=== PATIENT | male | born 1990 | race Hispanic/Latino ===

== ENCOUNTER 2017-07-07 10:13 | Emergency (ER) | payer SELFPAY ==
[2017-07-07] MEDS ORDERED: IBUPROFEN 400 MG TAB ONE (11:52)
--- NOTE | 2017-07-07 12:27 | RAD REPORT ---
EXAM DESCRIPTION: VAS - Extremity Venous Uni Ltd - 07/07/2017 12:07 pm CLINICAL HISTORY: Leg swelling and edema. COMPARISON: None. FINDINGS: Left lower extremity venous system was interrogated with Doppler technique. Normal flow, c ompressibility and augmentation was noted. There is no DVT present. IMPRESSION: No evidence of left lower extremity deep venous thrombosis.
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
--- NOTE | 2017-07-07 12:49 | RAD REPORT ---
EXAM DESCRIPTION: RAD - Tib Fib Left - 07/07/2017 12:36 pm CLINICAL HISTORY: Pain, swelling. COMPARISON: 04/13/2016 FINDINGS: Intramedullary collette is seen within the tibia. No evidence of hardware loosening or infectio n. Bony remodeling about midtibia shaft fracture is noted. Mild remodeling is also seen mid fibula. M etallic foreign bodies are seen throughout the superficial tissues of the leg.
== END 2017-07-07 13:12 | disposition home or self-care (01) ==
LOC: ER 10:13
DX: M79.662 Pain in left lower leg (principal)
CPT/HCPCS: 93971; 99283

== ENCOUNTER 2017-12-18 22:44 | Emergency (ER) | payer OTHER, SELFPAY ==
--- OUTSIDE RECORDS SUMMARY | 2017-12-18 22:46 | XMS REPORT | Summary of Care ---
:[address] [facility] Address [address] [place] [id number] Encounter HQ Encntr_alias(FIN) [id number] Date(s): 04/13/16 - 04/17/16 [facility] [address] [place] [address] Professional Services provided by [facility] [place] [address]- Discharge Disposition: Home or Self Care Attending Physician: Waqas Abdi MD Admitting Physician: Toby Helms MD Vital Signs Most recent to oldest 1 2 3 [Reference Range]: Height 167.64 cm 167.64 cm (04/14/16 1:11 AM) (04/13/16 8:58 PM) Temperature Oral [96.4-99.1 98.7 DegF 99.3 DegF 98.4 DegF DegF] (04/17/16 12:59 PM) *HI* (04/17/16 3:21 AM) (04/17/16 9:03 AM) Blood Pressure [90-140/60-90 122/74 mmHg 112/69 mmHg 118/74 mmHg mmHg] (04/17/16 12:59 PM) (04/17/16 9:03 AM) (04/17/16 3:21 AM) Respiratory Rate [14-20 BRMIN] 18 BRMIN 18 BRMIN 18 BRMIN (04/17/16 12:59 PM) (04/17/16 9:03 AM) (04/17/16 3:21 AM) Peripheral Pulse Rate [60-100 93 bpm 74 bpm 73 bpm bpm] (04/17/16 12:59 PM) (04/17/16 9:03 AM) (04/17/16 3:21 AM) Weight 63.636 kg (04/13/16 8:58 PM) Body Mass Index 22.64 m2 (04/13/16 8:58 PM) Problem List No data available for this section Allergies, Adverse Reactions, Alerts Substance Reaction Severity Status NKDA Active Medications acetaminophen 1,000 mg, 2 tab, Route: PO, Drug form: TAB, Q6H, Dosing Weight 63.636, kg, Priority: NOW, Start date: 04/13/16 23:04:00 POSITION CLASSIFICATION MANAGER, Duration: 30 day, Stop date: 05/13/16 18:00:00 CDT Notes: Max acetaminophen 4000 mg/day (4 gm/day). (Same as: Tylenol Extra Strength) Start Date: 04/13/16 Stop Date: 04/17/16 Status: DiscontinuedAncef 2 gm, 100 mL, Route: IVPB, Drug form: INJ, ABXQ8H, Dosing Weight 63.636, kg, Start date: 04/14/16 11:00:00 POSITION CLASSIFICATION MANAGER, Stop date: 04/16/16 3:00:00 POSITION CLASSIFICATION MANAGER Notes: Same as: Ancef Start Date: 04/14/16 Stop Date: 04/14/16 Status: DiscontinuedANES flumazenil 0.2 mg, 2 mL, Route: IVP, Drug form: INJ, PRN, Dosing Weight 63.636, kg, PRN Benzodiazepine Reversal, Initial dose, Start date: 04/14/16 16:39:00 POSITION CLASSIFICATION MANAGER, Duration: 1 day, Stop date: 04/15/16 16:38:00 POSITION CLASSIFICATION MANAGER Notes: (Same as: Romazicon) Start Date: 04/14/16 Stop Date: 04/14/16 Status: DiscontinuedANES HYDROmorphone 0.5 mg, 0.25 mL, Route: IVP, Drug form: INJ, Q5Min, Dosing Weight 63.636, kg, PRN Pain Score 7-10, Start date: 04/14/16 16:39:00 POSITION CLASSIFICATION MANAGER, Duration: 4 doses or times, Stop date: Limited # of times Notes: Same as: Dilaudid Start Date: 04/14/16 Stop Date: 04/14/16 Status: DiscontinuedANES naloxone 0.4 mg, 1 mL, Route: IVP, Drug form: INJ, Q2MIN, Dosing Weight 63.636, kg, PRN Narcotic Reversal, Start date: 04/14/16 16:39:00 POSITION CLASSIFICATION MANAGER, Duration: 8 doses or times , Stop date: Limited # of times Notes: Same as Narcan Start Date: 04/14/16 Stop Date: 04/14/16 Status: DiscontinuedANES ondansetron 4 mg, 2 mL, Route: IVP, Drug form: INJ, ONCE, Dosing Weight 63.636, kg, PRN Nausea & Vomiting, Start date: 04/14/16 16:39:00 POSITION CLASSIFICATION MANAGER Notes: (Same as: Zofran) MEDICATION WASTE Product Size: 4 mgProduct Wasted: ___ mg Start Date: 04/14/16 Stop Date: 04/14/16 Status: DiscontinuedANES oxyCODONE 5 mg, 1 tab, Route: PO, Drug form: TAB, Q4H, Dosing Weight 63.636, kg, PRN Pain Score 4-6, Start date: 04/14/16 16:39:00 POSITION CLASSIFICATION MANAGER, Duration: 1 day, Stop date: 16:38:00 POSITION CLASSIFICATION MANAGER Notes: (Same as: Roxicodone) Start Date: 04/14/16 Stop Date: 04/14/16 Status: Discontinuedaspirin 325 mg tablet, enteric coated 325 mg=1 tab, PO, BID, # 42 tab, 0 Refill(s) Start Date: 04/17/16 Stop Date: 05/08/16 Status: OrderedceFAZolin (SCIP) 1 gm, Route: IVPB, Drug form: PDR/INJ, Q8H, Dosing Weight 63.636, kg, Start date : 04/14/16 20:00:00 POSITION CLASSIFICATION MANAGER, Stop date: 04/15/16 17:00:00 POSITION CLASSIFICATION MANAGER Notes: (Same As: Raad Verdin) MEDICATION WASTE Product Size: 1000 mgProduct Wasted: ___ mg Start Date: 04/14/16 Stop Date: 04/15/16 Status: Completedcelecoxib 200 mg, 1 cap, Route: PO, Drug form: CAP, Q12H, Dosing Weight 63.636, kg, Priority: Routine, Start date: 04/14/16 9:00:00 POSITION CLASSIFICATION MANAGER, Duration: 48 hr, Stop date : 04/15/16 21:00:00 POSITION CLASSIFICATION MANAGER Notes: NSAID. Please check indication. Not for seizure. (Same As: CeleBREX) Start Date: 04/14/16 Stop Date: 04/15/16 Status: CompletedDilaudid 1 mg, 0.5 mL, Route: IVP, Drug form: INJ, ONCE, Dosing Weight 63.636, kg, Priority: STAT, Start date: 04/13/16 22:46:00 POSITION CLASSIFICATION MANAGER, Stop date: 04/13/16 22:46:00 POSITION CLASSIFICATION MANAGER Notes: Same as Dilaudid Start Date: 04/13/16 Stop Date: 04/13/16 Status: Completeddocusate 100 mg, 1 cap, Route: PO, Drug form: CAP, Q12H, Dosing Weight 63.636, kg, Start date: 04/14/16 9:00:00 POSITION CLASSIFICATION MANAGER, Duration: 30 day, Stop date: 05/13/16 21:00:00 CDT Notes: (Same as: Colace) (Do Not Crush) Start Date: 04/14/16 Stop Date: 04/17/16 Status: Discontinueddocusate sodium 100 mg oral capsule 100 mg=1 cap, PO, Q12H, PRN as needed for constipation, # 20 cap, 0 Refill(s) Start Date: 04/17/16 Stop Date: 04/27/16 Status: Orderedenoxaparin 30 mg, 0.3 mL, Route: SUB-Q, Drug form: INJ, [id number], Dosing Weight 63.636, kg , Start date: 04/14/16 0:00:00 POSITION CLASSIFICATION MANAGER, Duration: 30 day, Stop date: 05/13/16 12:00: 00 CDT Notes: (Same as: Lovenox) Start Date: 04/14/16 Stop Date: 04/14/16 Status: DiscontinuedFlomax 0.4 mg, 1 cap, Route: PO, Drug form: CAP, After Breakfast, Dosing Weight 63.636 , kg, Priority: NOW, Start date: 04/15/16 9:39:00 POSITION CLASSIFICATION MANAGER, Duration: 7 day, Stop date: 04/22/16 8:30:00 POSITION CLASSIFICATION MANAGER Notes: (Same As: Flomax) "Do Not Crush" Start Date: 04/15/16 Stop Date: 04/17/16 Status: Discontinuedinfluenza virus vaccine, inactivated 0.5 mL, Route: IM, Drug Form: SUSP, Daily, Start date: 04/15/16 12:30:00 POSITION CLASSIFICATION MANAGER, Duration: 1 doses or times, Stop date: 04/15/16 12:30:00 POSITION CLASSIFICATION MANAGER Notes: (Same as: Fluzone Quadrivalent, Fluarix Quadrivalent)For 3 years of age and older (0.5 mL IM)Shake well before use Start Date: 04/15/16 Stop Date: 04/15/16 Status: Completedinfluenza virus vaccine, inactivated 0.5 mL, Route: IM, Drug Form: SUSP, Daily, Start date: 04/14/16 9:00:00 POSITION CLASSIFICATION MANAGER, Duration: 1 doses or times, Stop date: 04/14/16 9:00:00 POSITION CLASSIFICATION MANAGER Notes: (Same as: Fluzone Quadrivalent, Fluarix Quadrivalent)For 3 years of age and older (0.5 mL IM)Shake well before use Start Date: 04/14/16 Stop Date: 04/15/16 Status: DeletedIsolyte S PH-7.4 (Bolus) IV 1,000 mL, 1000 ml/hr, Route: IV, Drug Form: SOLN, Dosing Weight 63.636, kg, ONCE , Start date: 04/13/16 21:13:00 POSITION CLASSIFICATION MANAGER, Stop date: 04/13/16 21:13:00 POSITION CLASSIFICATION MANAGER Notes: (Same as: Isolyte S PH 7.4) Start Date: 04/13/16 Stop Date: 04/13/16 Status: CompletedketOROLAC 30 mg, Route: IVP, ONCE, Dosing Weight 63.636, kg, Priority: NOW, Start date: 23:04:00 POSITION CLASSIFICATION MANAGER,Duration: 1 doses or times, Stop date: 04/13/16 23:04:00 POSITION CLASSIFICATION MANAGER Start Date: 04/13/16 Stop Date: 04/13/16 Status: CompletedLovenox 30 mg, 0.3 mL, Route: SUB-Q, Drug form: INJ, Q12H, Dosing Weight 63.636, kg, Start date: 04/14/16 18:30:00 POSITION CLASSIFICATION MANAGER, Duration: 30 day, Stop date: 05/14/16 16:00: 00 CDT Notes: (Same as: Lovenox) Start Date: 04/14/16 Stop Date: 04/17/16 Status: Discontinuedmagnesium citrate 1.745 g/30 mL oral liquid 150 ml, Route: PO, Drug Form: LIQ, Dosing Weight 63.636, kg, ONCE, Start date: 04/16/16 10:16:00 POSITION CLASSIFICATION MANAGER, Stop date: 04/16/16 10:16:00 POSITION CLASSIFICATION MANAGER Notes: (Same as: Citrate of Magnesia)Concentration: 1.745 gm / 30 mL Start Date: 04/16/16 Stop Date: 04/16/16 Status: CompletedNorco 5/325 oral tablet 1 tab, PO, Q4H, PRN for pain, X 7 day, # 40 tab, 0 Refill(s) Start Date: 04/17/16 Stop Date: 04/24/16 Status: OrderedNS (Bolus) IV 1,000 mL, 1,000 ml/hr, Infuse Over: 1 hr, Route: IV, ONCE, Priority: STAT, Dosing Weight 63.636 kg, Start date: 04/13/16 21:41:00 POSITION CLASSIFICATION MANAGER, Duration: 1 doses or times, Stop date: 04/13/16 21:41:00 POSITION CLASSIFICATION MANAGER Start Date: 04/13/16 Stop Date: 04/13/16 Status: DiscontinuedoxyCODONE 5 mg immediate release 10 mg, 2 tab, Route: PO, Drug form: TAB, Q4H, Dosing Weight 63.636, kg, PRN Pain Score 7-10, Start date: 04/13/16 23:04:00 POSITION CLASSIFICATION MANAGER, Duration: 30 day, Stop date : 05/13/16 23:03:00 CDT Notes: (Same as: Roxicodone) Start Date: 04/13/16 Stop Date: 04/17/16 Status: Discontinuedpolyethylene glycol 3350 17 gm, 1 pkt, Route: PO, Drug form: PWDR, BID, Dosing Weight 63.636, kg, Start date: 04/16/16 17:00:00 POSITION CLASSIFICATION MANAGER, Duration: 30 day, Stop date: 05/16/16 9:00:00 CDT Notes: Dissolve in 8 oz of water or juice.(Same as: Miralax) Start Date: 04/16/16 Stop Date: 04/17/16 Status: Discontinuedpolyethylene glycol 3350 17 gm, 1 pkt, Route: PO, Drug form: PWDR, Daily, Dosing Weight 63.636, kg, Start date: 04/14/16 9:00:00 POSITION CLASSIFICATION MANAGER, Duration: 30 day, Stop date: 05/13/16 9:00:00 CDT Notes: Dissolve in 8 oz of water or juice.(Same as: Miralax) Start Date: 04/14/16 Stop Date: 04/16/16 Status: Discontinuedpregabalin 100 mg, 1 cap, Route: PO, Drug form: CAP, Q8H, Dosing Weight 63.636, kg, Priority: NOW, Start date: 04/13/16 23:04:00 POSITION CLASSIFICATION MANAGER, Duration: 48 hr, Stop date: 16:00:00 POSITION CLASSIFICATION MANAGER Notes: (Same as: Lyrica) Start Date: 04/13/16 Stop Date: 04/15/16 Status: Completedsenna 17.2 mg, 2 tab, Route: PO, Drug Form: TAB, Dosing Weight 63.636, kg, Bedtime, Start date: 04/14/16 21:00:00 POSITION CLASSIFICATION MANAGER, Duration: 30 day, Stop date: 05/13/16 21:00: 00 CDT Notes: (Same as: Senokot) Start Date: 04/14/16 Stop Date: 04/17/16 Status: Discontinuedsenna 8.6 mg oral tablet 17.2 mg=2 tab, PO, Bedtime, PRN as needed for constipation, X 10 day, # 20 tab, 0 Refill(s) Start Date: 04/17/16 Stop Date: 04/27/16 Status: Orderedsodium chloride 0.9% 1000 ml INJ 1,000 mL 1,000 mL, Rate: 125 ml/hr, Infuse over: 8 hr, Route: IV, Dosing Weight 63.636 kg , Total Volume: 1,000, Start date: 04/15/16 16:14:00 POSITION CLASSIFICATION MANAGER, Duration: 30 day, Stop date: 05/15/16 16:13:00 CDT Start Date: 04/15/16 Stop Date: 04/16/16 Status: Discontinuedtramadol 100 mg, 2 tab, Route: PO, Drug form: TAB, Q6H, Dosing Weight 63.636, kg, Priority: NOW, Start date: 04/13/16 23:04:00 POSITION CLASSIFICATION MANAGER, Duration: 30 day, Stop date: 05/13/16 18:00:00 CDT Notes: Not to exceed 400mg/day. (Same As: Ultram) Start Date: 04/13/16 Stop Date: 04/17/16 Status: DiscontinuedVisipaque 320mg/ml 149 mL, Route: IVP, Drug Form: SOLN, Dosing Weight 63.636, kg, ONCALL, STAT, Start date: 04/13/16 22:07:00 POSITION CLASSIFICATION MANAGER, Duration: 1 doses or times, Dose=2.2ml/kg, Max gqad=182fm -- "To be infused by RadiologyStaff ONLY" Start Date: 04/13/16 Stop Date: 04/13/16 Status: CompletedZofran 4 mg, 2 mL, Route: IVP, Drug form: INJ, Q8H, Dosing Weight 63.636, kg, PRN Nausea, Start date: 04/16/16 7:29:00 POSITION CLASSIFICATION MANAGER, Duration: 30 day, Stop date: 05/16/16 7:28:00 CDT Notes: (Same as: Zofran) MEDICATION WASTE Product Size: 4 mgProduct Wasted: ___ mg Start Date: 04/16/16 Stop Date: 04/17/16 Status: DiscontinuedZofran 4 mg oral tablet 4 mg=1 tab, PO, Q8H, PRN Nausea/vomiting, X 7 day, # 20 tab, 0 Refill(s) Start Date: 04/17/16 Stop Date: 04/24/16 Status: Ordered Results BLOOD BANK RESULTS Most recent to oldest [Reference Range]: 1 2 3 ABO/Rh O POS *Unknown* (04/13/16 9:41 PM) Antibody Scrn Negative (04/13/16 9:41 PM) ELECTROLYTES Most recent to oldest 1 2 3 [Reference Range]: Sodium Lvl [135-145 mEq/L] 139 mEq/L 136 mEq/L 137 mEq/L (04/15/16 12:25 AM) (04/14/16 12:49 AM) (04/13/16 9:40 PM) Potassium Lvl [3.5-5.1 3.7 mEq/L 3.9 mEq/L 3.4 mEq/L mEq/L] (04/15/16 12:25 AM) (04/14/16 12:49 AM) *LOW* (04/13/16 9:40 PM) Chloride Lvl [95-109 mEq/L] 100 mEq/L 99 mEq/L 101 mEq/L (04/15/16 12:25 AM) (04/14/16 12:49 AM) (04/13/16 9:40 PM) CO2 [24-32 mEq/L] 30 mEq/L 24 mEq/L 24 mEq/L (04/15/16 12:25 AM) (04/14/16 12:49 AM) (04/13/16 9:40 PM) AGAP [10.0-20.0 mEq/L] 12.7 mEq/L 16.9 mEq/L 15.4 mEq/L (04/15/16 12:25 AM) (04/14/16 12:49 AM) (04/13/16 9:40 PM) CHEM PANEL Most recent to oldest 1 2 3 [Reference Range]: Creatinine Lvl [0.50-1.40 0.88 mg/dL 1.05 mg/dL 0.96 mg/dL mg/dL] (04/15/16 12:25 AM) (04/14/16 12:49 AM) (04/13/16 9:40 PM) eGFR 118 mL/min/1.73m2 1 97 mL/min/1.73m2 2 108 mL/min/1.73m2 3 *NA* *NA* *NA* (04/15/16 12:25 AM) (04/14/16 12:49 AM) (04/13/16 9:40 PM) BUN [7-22 mg/dL] 8 mg/dL 9 mg/dL 7 mg/dL (04/15/16 12:25 AM) (04/14/16 12:49 AM) (04/13/16 9:40 PM) Glucose Lvl [70-99 mg/dL] 106 mg/dL 85 mg/dL 105 mg/dL *HI* (04/14/16 12:49 AM) *HI* (04/15/16 12:25 AM) (04/13/16 9:40 PM) Calcium Lvl [8.5-10.5 8.3 mg/dL 9.1 mg/dL 9.1 mg/dL mg/dL] *LOW* (04/14/16 12:49 AM) (04/13/16 9:40 PM) (04/15/16 12:25 AM) Phosphorus [2.5-4.5 mg/dL] 2.7 mg/dL (04/15/16 12:25 AM) Magnesium Lvl [1.8-2.4 2.3 mg/dL mg/dL] (04/15/16 12:25 AM) Lactic Acid Lvl [0.5-2.2 1.7 mMol/L mMol/L] (04/13/16 9:40 PM) 1Result Comment: The eGFR is calculated using the CKD-EPI formula. In most young , healthy individualsthe eGFR will be >90 mL/min/1.73m2. The eGFR declines with age. An eGFR of 60-89 may be normal in some populations, particularly the elderly, for whom the CKD-EPI formula has not been extensively validated. Use of the eGFR is not recommended in the following populations: Individuals with unstable creatinine concentrations, including patients and those with serious co-morbid conditions. Patients with extremes in muscle mass or diet. The data above are obtained from the National Kidney Disease Education Program ( NKDEP) which additionally recommends that when the eGFR is used in patients with extremes of body mass index for purposesof drug dosing, the eGFR should be multiplied by the estimated BMI.2Result Comment: The eGFR is calculated using the CKD-EPI formula. In most young, healthy individualsthe eGFR will be >90 mL/ min/1.73m2. The eGFR declines with age. An eGFR of 60-89 may be normal in some populations, particularly the elderly, for whom the CKD-EPI formula has not been extensively validated. Use of the eGFR is not recommended in the following populations: Individuals with unstable creatinine concentrations, including patients and those with serious co-morbid conditions. Patients with extremes in muscle mass or diet. The data above are obtained from the National Kidney Disease Education Program ( NKDEP) which additionally recommends that when the eGFR is used in patients with extremes of body mass index for purposesof drug dosing, the eGFR should be multiplied by the estimated BMI.3Result Comment: The eGFR is calculated using the CKD-EPI formula. In most young, healthy individualsthe eGFR will be >90 mL/ min/1.73m2. The eGFR declines with age. An eGFR of 60-89 may be normal in some populations, particularly the elderly, for whom the CKD-EPI formula has not been extensively validated. Use of the eGFR is not recommended in the following populations: Individuals with unstable creatinine concentrations, including patients and those with serious co-morbid conditions. Patients with extremes in muscle mass or diet. The data above are obtained from the National Kidney Disease Education Program ( NKDEP) which additionally recommends that when the eGFR is used in patients with extremes of body mass index for purposesof drug dosing, the eGFR should be multiplied by the estimated BMI.CARDIAC ENZYMES Most recent to oldest 1 2 3 [Reference Range]: Total CK [12-191 unit/L] 1035 unit/L 1278 unit/L 1300 unit/L *HI* *HI* *HI* (04/17/16 3:44 AM) (04/16/16 4:58 AM) (04/15/16 8:37 AM) MYOGLOBIN Most recent to oldest 1 2 3 [Reference Range]: Myoglobin [25-72 ng/mL] 45 ng/mL 22 ng/mL 196 ng/mL (04/17/16 3:44 AM) *LOW* *HI* (04/16/16 4:58 AM) (04/15/16 8:37 AM) U Myoglobin [0-30 ng/mL] <21 ng/mL (04/14/16 10:17 PM) HEMATOLOGY Most recent to oldest 1 2 3 [Reference Range]: WBC [3.7-10.4 K/CMM] 8.8 K/CMM 12.5 K/CMM 17.6 K/CMM (04/15/16 12:25 AM) *HI* *HI* (04/14/16 12:49 AM) (04/13/16 9:40 PM) RBC [4.70-6.10 M/CMM] 3.73 M/CMM 4.66 M/CMM 4.81 M/CMM *LOW* *LOW* (04/13/16 9:40 PM) (04/15/16 12:25 AM) (04/14/16 12:49 AM) Hgb [14.0-18.0 g/dL] 12.1 g/dL 14.8 g/dL 15.4 g/dL *LOW* (04/14/16 12:49 AM) (04/13/16 9:40 PM) (04/15/16 12:25 AM) Hct [42.0-54.0 %] 34.1 % 42.9 % 44.3 % *LOW* (04/14/16 12:49 AM) (04/13/16 9:40 PM) (04/15/16 12:25 AM) MCV [80.0-94.0 fL] 91.4 fL 92.0 fL 92.1 fL (04/15/16 12:25 AM) (04/14/16 12:49 AM) (04/13/16 9:40 PM) MCH [27.0-31.0 pg] 32.5 pg 31.7 pg 32.1 pg *HI* *HI* *HI* (04/15/16 12:25 AM) (04/14/16 12:49 AM) (04/13/16 9:40 PM) MCHC [32.0-36.0 g/dL] 35.6 g/dL 34.5 g/dL 34.9 g/dL (04/15/16 12:25 AM) (04/14/16 12:49 AM) (04/13/16 9:40 PM) RDW [11.5-14.5 %] 13.3 % 13.5 % 13.6 % (04/15/16 12:25 AM) (04/14/16 12:49 AM) (04/13/16 9:40 PM) Platelet [133-450 K/CMM] 163 K/CMM 223 K/CMM 247 K/CMM (04/15/16 12:25 AM) (04/14/16 12:49 AM) (04/13/16 9:40 PM) MPV [7.4-10.4 fL] 8.4 fL 8.2 fL 7.5 fL (04/15/16 12:25 AM) (04/14/16 12:49 AM) (04/13/16 9:40 PM) Segs [45.0-75.0 %] 84.8 % 83.9 % 86.4 % *HI* *HI* *HI* (04/15/16 12:25 AM) (04/14/16 12:49 AM) (04/13/16 9:40 PM) Lymphocytes [20.0-40.0 %] 9.4 % 8.2 % 7.8 % *LOW* *LOW* *LOW* (04/15/16 12:25 AM) (04/14/16 12:49 AM) (04/13/16 9:40 PM) Monocytes [2.0-12.0 %] 4.4 % 7.4 % 5.5 % (04/15/16 12:25 AM) (04/14/16 12:49 AM) (04/13/16 9:40 PM) Eosinophils [0.0-4.0 %] 1.0 % (04/15/16 12:25 AM) Basophils [0.0-1.0 %] 0.4 % 0.5 % 0.3 % (04/15/16 12:25 AM) (04/14/16 12:49 AM) (04/13/16 9:40 PM) Segs-Bands # [1.5-8.1 7.4 K/CMM 10.5 K/CMM 15.2 K/CMM K/CMM] (04/15/16 12:25 AM) *HI* *HI* (04/14/16 12:49 AM) (04/13/16 9:40 PM) Lymphocytes # [1.0-5.5 0.8 K/CMM 1.0 K/CMM 1.4 K/CMM K/CMM] *LOW* (04/14/16 12:49 AM) (04/13/16 9:40 PM) (04/15/16 12:25 AM) Monocytes # [0.0-0.8 K/CMM] 0.4 K/CMM 0.9 K/CMM 1.0 K/CMM (04/15/16 12:25 AM) *HI* *HI* (04/14/16 12:49 AM) (04/13/16 9:40 PM) Eosinophils # [0.0-0.5 0.1 K/CMM K/CMM] (04/15/16 12:25 AM) Basophils # [0.0-0.2 K/CMM] 0.1 K/CMM (04/14/16 12:49 AM) ACT (TEG) Rapid [86-118 113 seconds seconds] (04/13/16 9:40 PM) Split Point Rapid 0.6 minutes *NA* (04/13/16 9:40 PM) R-time Rapid [0.4-0.7 0.7 minutes minutes] (04/13/16 9:40 PM) K-time Rapid [0.6-2.3 1.2 minutes minutes] (04/13/16 9:40 PM) Angle Rapid [64-80 degrees] 76 degrees (04/13/16 9:40 PM) Max Amplitude Rapid [52-71 63 mm mm] (04/13/16 9:40 PM) G-value Rapid [5.0-11.6 K 8.4 K d/sc d/sc] (04/13/16 9:40 PM) Estimated % Lysis Rapid 3.7 % 1 [0.0-7.5 %] (04/13/16 9:40 PM) 1Result Comment: "Significant Findings called to Stepan Powell_at 04/13/2016 23: 10__by __.Read BackOK." Immunizations Given and Recorded Vaccine Date Status Refusal Reason influenza virus vaccine, inactivated 04/15/16 Given Procedures Procedure Date Related Diagnosis Body Site Knee joint operation Social History Social History Type Response Smoking Status Current every day smoker; Exposure to Tobacco Smoke None; Cigarette Smoking Last 365 Days Yes; Reg Smoking Cessation Counseling No Assessment and Plan Extracted from: Title: daily ortho progress note Author: Lucero De Jesus Date: 04/17/16 Progress Note - Daily [facility] Completed: Apr, 14: 29 by Lucero De Jesus RM: [id number] - 01, 6WJP BRITTANI VALLE 26y (: 1990) M Attending: Waqas Abdi MD Service: Internal Medicine Reason for Admission: TIB FRACTURE Working DRG: Ungroupable Code status: Full Code [Ordered] Current diet: Isolation: None Documented Allergies: NKDA SUBJECTIVE OBJECTIVE 24hr Labs 04/17 0344 Myoglobin 45 Total CK 1035 H Theodore still necessary (Yes/No): Line still necessary (Yes/No): Vitals Tmp(F) Pulse BP RR SpO2 FIO2 04/17 12:59 98.7 93 122/74 18 98 --- 04/17 09:03 99.3 74 112/69 18 99 --- 04/17 03:21 98.4 73 118/74 18 100 21% 04/16 23:36 98.3 86 110/68 18 100 21% 04/16 19:23 98 88 122/74 18 98 21% 24 Hr Tmax: 99.3F (37.39c) at 04/17 09:03 Vital Signs are the last 5 in the past 48 hours. Date Wt(kg) Wt(lb) Ht(cm) Ht(in) Method 04/14 167.64 66.00 04/13 (initial) 63.64 140.00 Estimated 04/13 167.64 66.00 Stated I&O Record In Out Bal 04/17 24hr Tot 440 0 440 04/16 24hr Tot 744 400 344 Medications (10) Active Scheduled Meds (7): 04/13/16 acetaminophen 1,000 mg PO Q6H 04/14/16 docusate 100 mg PO Q12H 04/14/16 enoxaparin (Lovenox) 30 mg SUB-Q Q12H 04/16/16 polyethylene glycol 3350 17 gm PO BID 04/14/16 senna 17.2 mg PO Bedtime 04/15/16 tamsulosin (Flomax) 0.4 mg PO After Breakfast 04/13/16 tramadol 100 mg PO Q6H Unscheduled Meds: None PRN Meds (2): 04/16/16 ondansetron (Zofran) 4 mg IVP Q8H 04/13/16 oxyCODONE (oxyCODONE 5 mg immediate release) 10 mg PO Q4H One Time Meds (1): 04/16/16 (Completed) magnesium citrate (magnesium citrate 1.745 g/30 mL oral liquid) 150 ml PO ONCE Continuous Infusions: None Diagnosis: 1. left tibia open fracture PROCEDURES PERFORMED:04/14/16 1. Irrigation and debridement of left lower extremity. 2. Intramedullary nail, left tibia. 3. Incisional wound VAC to left lower extremity traumatic wound measuring 5 cm. Exam: LLE: + ivac( clotted) ,moves toes, foot warm, cap refill brisk, STLT intact, compartments soft and compressable, no concerns for compartment sydrome. Plan Pain: controlled Weight bearing status: NWBLLE Abx:ancef for 48 hours for open fracture completed DVT:lovenox Dressings: changed today Anemia: acute blood loss anemia secondary to trauma Patient education: regarding follow up on thursday for a wound check and splint change as well as WB limits Discharge Dispo:ok to d/c today
[2017-12-18] MEDS ORDERED: NA CHLORIDE 0.9% 1,000 ML ONE ×2 (23:16→23:21)
[2017-12-18 23:52] LABS: Absolute Lymphocytes (CBC) 2.8 K/uL (0.7-4.9); Absolute Monocytes 0.6 K/uL (0.1-1.3); Absolute Neutrophil 6.2 K/uL (1.8-8.0); Basophils % 0.7 % (0-1.3); Eosinophils % 1.5 % (0-4.4); Hematocrit 46.9 % (39.6-49.0); Lymphocytes % 28.6 % (15.3-44.8); MCH 32.5 pg (27.0-35.0); MCV 93.3 fL (80-100); MPV 8.9 fL (7.6-11.3); Monocytes % 6.3 % (3.3-12.3); RBC Red Blood Cell Count 5.02 M/uL (4.33-5.43)
[2017-12-19] MEDS ORDERED: MORPHINE 4 MG/ML SYR ONE (00:05)
[2017-12-19 00:06] LABS: Potassium 3.5 mmol/L (3.5-5.1)
[2017-12-19] MEDS ORDERED: ONDANSETRON 4 MG/2 ML VIAL ONE (00:06)
[2017-12-19] MEDS ORDERED: LIDOCAINE 1% W/EPI 1:100,000 MDV 50 ML VIAL ONE (00:38)
[2017-12-19] MEDS ORDERED: CLINDAMYCIN 600MG/D5W 600 MG/50 ML BAG IV ONE (00:45)
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
--- NOTE | 2017-12-19 09:44 | RAD REPORT ---
EXAM DESCRIPTION: CT - Soft Tissue Neck W/Contr - 12/19/2017 6:32 am CLINICAL HISTORY: Neck pain and neck swelling. The submandibular laceration COMPARISON: None. TECHNIQUE: Computed axial tomography of the neck was obtained. 50 cc Isovue-300 administered intrave nously. Coronal and sagittal reconstruction was performedPreliminary report was generated by [employer] and reviewed prior to this dictation All CT scans are performed using dose optimization technique as appropriate and may include automated exposure control or mA/KV adjustment according to patient size. FINDINGS: Laceration involves the left submandibular gland. Air is present within the left masticat or and carotid spaces as well as subcutaneous tissues. Active extravasation of contrast is not visual ized. Major arteries are patent Airway is unremarkable. IMPRESSION: Left submandibular gland laceration with air and the adjacent tissues. Active extravasat ion of contrast is not seen
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
== END 2017-12-19 01:49 | disposition home or self-care (01) ==
LOC: ER 22:44
PROC: 0JQ50ZZ Repair Left Neck Subcutaneous Tissue and Fascia, Open Approach (ICD-10-PCS; principal; 2017-12-19)
DX: S11.91XA Laceration without foreign body of unspecified part of neck, initial encounter (principal); Y08.89XA Assault by other specified means, initial encounter; Y93.89 Activity, other specified; Y92.89 Other specified places as the place of occurrence of the external cause; Z04.71 Encounter for examination and observation following alleged adult physical abuse
CPT/HCPCS: 36415; 70450; 70486; 70491; 71260; 72125; 74177; 76377; 80048; 80320; 85025; 86850; 86900; 86901; 99284; J2405; J7030; Q9967

== ENCOUNTER 2019-10-19 21:07 | Observation (INO) | payer OTHER, SELFPAY ==
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
[2019-10-19] MEDS ORDERED: Ringers Lactate 1,000 ML IV ONE ×2 (21:29→21:50)
[2019-10-19 21:34] LABS: Absolute Lymphocytes (CBC) 1.3 K/uL (0.7-4.9); Basophils % 0.3 % (0-1.3); Hematocrit 50.5 % (39.6-49.0); Lymphocytes % 7.3 % (15.3-44.8); MPV 8.4 fL (7.6-11.3); RBC Red Blood Cell Count 5.45 M/uL (4.33-5.43)
[2019-10-19 21:47] LABS: Albumin 5.5 g/dL (3.4-5.0); Bilirubin Direct 0.2 mg/dL (0-0.2); Bilirubin Total 1.1 mg/dL (0.2-1.0); Potassium 3.8 mmol/L (3.5-5.1); Protein, Total 10.3 g/dL (6.4-8.2)
[2019-10-19 22:06] LABS: Blood Morphology Comment NOT SEEN (NOT SEEN); Platelet Estimate ADEQ; White Blood Cell Scan OK
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
[2019-10-19] MEDS ORDERED: NA CHLORIDE 0.9% 1,000 ML ONE (22:28)
[2019-10-19 23:43] LABS: Urine Blood 1+ (NEG); Urine Glucose NEGATIVE (NEG); Urine Protein 3+ (NEG); Urine Specific Gravity >1.030 (1.005-1.030); Urine pH 5.5 (5.0-7.0)
[2019-10-20] MEDS: NA CHLORIDE 0.9% 1,000 ML IV SCH ×2 (00:06→06:13)
[2019-10-20] MEDS ORDERED: ONDANSETRON 4 MG/2 ML VIAL IV PRN (00:06)
[2019-10-20 00:46] VITALS: BMI 22.6
[2019-10-20 04:24] VITALS: TEMP 97.8
[2019-10-20] MEDS ORDERED: NA CHLORIDE 0.9% 1,000 ML ONE (06:21)
[2019-10-20] MEDS ORDERED: POTASSIUM 25 MEQ EFFERV TAB PO ONE (06:46)
[2019-10-20 06:54] LABS: Potassium 3.8 mmol/L (3.5-5.1)
[2019-10-20 08:30] VITALS: BP 117/83
[2019-10-20] MEDS ORDERED: HEPARIN 5000 UNIT/ML 1 ML VIAL SQ SCH (09:00)
[2019-10-20] MEDS ORDERED: POTASSIUM 25 MEQ EFFERV TAB ONE (09:11)
--- NOTE | 2019-10-20 10:28 | P.DS ---
Admission Date: 10/19/19 Discharge Date: 10/20/19 Primary Care Provider: none Disposition: ROUTINE DISCHARGE Discharge Condition: GOOD Reason for Admission: Acute renal failure Brief History of Present Illness: 29-year-old male with no past medical history presents emergency department for muscle spasms. 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 Patient reports that he did stop sweating. Upon arrival to emergency department patient was evaluated and given IV fluids. Patient was found to be in acute renal failure with a creatinine of 3.11 and GFR of 24. ED provider wishes to admit patient for further evaluation and management. When this was discussed with the patient he states that he wishes to leave against medical advice due to the fact that he needs to be at work in order to pay his sommers on so he does not go back to senior living. After discussing this further with the patient he agreed to stay overnight for hydration. Patient states he will likely leave against medical advice in the morning so that he can make it to work and his bills on time. Patient explained that this is likely not the best course of action for his health but he states he cannot risk missing. Hospital Course: Acute renal failure likely related to dehydration: Patient has a 2 L of IV fluids in the emergency department continue with IV fluids at 150 cc/hour. Rechecked labs in the morning. His renal parameters are improving Patient responded well to the IV hydration He wanted to go home. He is being discharged home today in a stable condition with advice to follow up with PCP in 1 week He was also instructed to start on aggressive hydration Vital Signs/Physical Exam: Temp Pulse Resp BP Pulse Ox 97.8 F 63 14 117/83 97 10/20/19 08:00 10/20/19 08:00 10/20/19 08:00 10/20/19 08:00 10/20/19 08:00 General: Alert, In no apparent distress HEENT: Atraumatic, Normocephalic Neck: Supple Respiratory: Clear to auscultation bilaterally Cardiovascular: No edema, Normal S1 S2 Capillary refill: <2 Seconds Gastrointestinal: Soft and benign, W/out hepatosplenomegaly Musculoskeletal: No clubbing, No swelling Integumentary: No rashes Neurological: Normal speech, Normal strength at 5/5 x4 extr Lymphatics: No axilla or inguinal lymphadenopathy Laboratory Data at Discharge: WBC 17.3 K/uL (4.3-10.9) H 10/19/19 21:15 Hgb 17.5 g/dL (13.6-17.9) 10/19/19 21:15 Hct 50.5 % (39.6-49.0) H 10/19/19 21:15 Plt Count 324 K/uL (152-406) 10/19/19 21:15 Sodium 141 mmol/L (136-145) 10/20/19 06:25 Potassium 3.8 mmol/L (3.5-5.1) 10/20/19 06:25 BUN 19 mg/dL (7-18) H 10/20/19 06:25 Creatinine 1.50 mg/dL (0.55-1.3) H D 10/20/19 06:25 Glucose 93 mg/dL (74-106) 10/20/19 06:25 Total Bilirubin 1.1 mg/dL (0.2-1.0) H 10/19/19 21:15 AST 27 U/L (15-37) 10/19/19 21:15 ALT 40 U/L (12-78) 10/19/19 21:15 Alkaline Phosphatase 87 U/L (45-117) 10/19/19 21:15 Home Medications: Cyclobenzaprine HCl [Flexeril] 5 mg PO TID PRN #20 tablet 10/20/19 New Medications: Cyclobenzaprine HCl [Flexeril] 5 mg PO TID PRN #20 tablet PRN Reason: Muscle Spasms Time spent managing pt's care (in minutes): 32
[2019-10-20 11:58] VITALS: O2SAT 98
== END 2019-10-20 11:30 | disposition home or self-care (01) ==
LOC: ER 21:07 → ERHOLD 22:43
PROVIDERS: ADMIT Family Medicine; ATTEND Family Medicine
DX: N17.9 Acute kidney failure, unspecified (principal); E86.0 Dehydration; M62.838 Other muscle spasm; X30.XXXA Exposure to excessive natural heat, initial encounter; Z20.828 Contact with and (suspected) exposure to other viral communicable diseases
CPT/HCPCS: 36415; 80048; 80076; 81003; 82550; 85025; 96361; 96365; 99285; G0378; J7030; J7120; U0002

== ENCOUNTER 2020-11-26 15:33 | Emergency (ER) | payer SELFPAY ==
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
[2020-11-26] MEDS ORDERED: HYDROCODONE/APAP 5/325 MG TAB ONE (16:33)
[2020-11-26] MEDS ORDERED: TETANUS & DIPHTHERIA TOX,ADULT 0.5 ML VIAL ONE (16:33)
[2020-11-26] MEDS ORDERED: LIDOCAINE 1% 20 ML MDV ONE (16:48)
[2020-11-26] MEDS ORDERED: BUPIVACAINE 0.5% PF 10 ML VIAL ONE (16:48)
--- NOTE | 2020-11-26 17:43 | EDPHYS ---
Physician Documentation [facility] Name: Tad Gray Age: 30 yrs Sex: Male : 1990 Arrival Date: 11/26/2020 Time: 15:37 Bed 24 Private MD: Dylan Martinez HPI: 11/26 15:45 This 30 yrs old Male presents to ER via EMS with complaints of Laceration To cp Hand, Hand Injury. 15:45 The patient has a laceration occurred outdoors, and punched a window. The laceration(s) cp is(are) located on the left hand. Onset: The symptoms/episode began/occurred this morning, approximately 0800. Associated signs and symptoms: Pertinent negatives: loss of consciousness, numbness distal to injury. Historical: - Allergies: 16:14 No Known Allergies; iw - Home Meds: 16:14 None [Active]; iw - PMHx: 16:14 None; iw - Immunization history:: None. - Social history:: Smoking status: unknown. ROS: 15:50 Constitutional: Negative for fever, poor PO intake. cp 15:50 Cardiovascular: Negative for chest pain. 15:50 Respiratory: Negative for cough, shortness of breath. 15:50 Skin: Positive for laceration(s), of the dorsal side of left hand. 15:50 Neuro: Negative for numbness, weakness. 15:50 All other systems are negative. cp Exam: 15:55 Constitutional: The patient appears in no acute distress, alert, awake, non-toxic, well cp developed, well nourished, uncomfortable. 15:55 Head/Face: Normocephalic, atraumatic. cp 15:55 Eyes: Periorbital structures: appear normal, Conjunctiva: normal, no exudate, no injection, Lids and lashes: appear normal, bilaterally. 15:55 Chest/axilla: Inspection: normal. 15:55 Cardiovascular: Rate: normal, Rhythm: regular. 15:55 Respiratory: the patient does not display signs of respiratory distress, Respirations: normal, no use of accessory muscles, no retractions. 15:55 Abdomen/GI: Exam negative for discomfort, distension, guarding, Inspection: abdomen appears normal. 15:55 Musculoskeletal/extremity: Extremities: noted in the left hand: ROM: full active range of motion, in the left hand, Perfusion: the extremity is normally perfused throughout, Sensation intact. Tendon exam: specific tendon testing normal through active and passive range of motion 15:55 Skin: injury, laceration(s), multiple noted dorsal side of left hand with skin avulsion, mild bleeding noted, mild swelling. Vital Signs: 16:15 BP 142 / 97; Pulse 75; Resp 16; Temp 98.3; Pulse Ox 99% on R/A; Weight 70.31 kg; Height iw 5 ft. 9 in. (175.26 cm); Pain 10/10; 16:19 BP 128 / 85; Pulse 64; Resp 18; Temp 98.3; Pulse Ox 100% ; aj2 18:47 BP 124 / 85; Pulse 64; Resp 18; Temp 98.3; Pulse Ox 100% ; aj2 16:15 Body Mass Index 22.89 (70.31 kg, 175.26 cm) iw Laceration: 17:45 Wound Repair of 3.5cm ( 1.4in ) subcutaneous laceration to dorsal side of left hand. cp Irregularly shaped.. Distal neuro/vascular/tendon intact. Anesthesia: Wound infiltrated with 4 mls of 1% lidocaine. Wound prep: Moderate cleansing by me, Wound irrigation by me. Skin closed with 6 5-0 Prolene using interrupted sutures and sterile technique. Dressed with Bacitracin, 4x4's, pressure dressing. Patient tolerated well. MDM: 15:38 Patient medically screened. kathia 16:00 Differential diagnosis: superficial laceration, tendon injury, vascular injury. cp 17:42 Data reviewed: vital signs, nurses notes, radiologic studies, plain films. cp 17:42 Test interpretation: by ED physician or midlevel provider: plain radiologic studies. cp Counseling: I had a detailed discussion with the patient and/or guardian regarding: the historical points, exam findings, and any diagnostic results supporting the discharge/admit diagnosis, radiology results, the need for outpatient follow up, a hand specialist, to return to the emergency department if symptoms worsen or persist or if there are any questions or concerns that arise at home. Response to treatment: the patient's symptoms have markedly improved after treatment, and as a result, I will discharge patient. Special discussion: I discussed in detail with the patient the higher chance of wound infection based on his presenting history. 11/26 15:39 Order name: XRAY Hand LEFT 3 View; Complete Time: 16:17 11/26 16:17 Interpretation: Report reviewed. 11/26 16:21 Order name: Wound Care; Complete Time: 18:43 cp 11/26 16:21 Order name: Dressing - Wound; Complete Time: 18:43 cp 11/26 16:21 Order name: Gloves, Sterile; Complete Time: 18:43 cp 11/26 16:21 Order name: Setup Suture Tray; Complete Time: 18:43 cp 11/26 17:19 Order name: Wound dressing; Complete Time: 18:43 cp Administered Medications: 16:12 Drug: HYDROcodone-acetaminophen 5 mg-325 mg 1 tabs Route: Feeding Tube; iw 16:16 Not Given (tetanus in ): Tetanus-Diphtheria Toxoid Adult 0.5 ml IM once iw 16:30 Drug: Bupivacaine (0.5 %) 10 ml Volume: 10 ml; Route: Infiltration; aj2 17:00 Drug: KeFLEX (cephalexin) 500 mg Route: PO; aj2 Disposition: 17:50 Chart complete. 11/27 05:53 Co-signature as Attending Physician, Dylan Philippe MD I agree with the assessment and kathia plan of care. Disposition Summary: 11/26/20 17:42 Discharge Ordered Location: Home cp Problem: new cp Symptoms: have improved cp Condition: Stable cp Diagnosis - Laceration without foreign body of left hand, initial encounter cp Followup: cp - With: Anders Thacker MD - When: 2 - 3 days - Reason: Wound Recheck Discharge Instructions: - Discharge Summary Sheet cp - Laceration Care, Adult cp Forms: - Medication Reconciliation Form cp - Thank You Letter cp - Antibiotic Education cp - Prescription Opioid Use cp Prescriptions: - Cephalexin 500 mg Oral Capsule - take 1 capsule by ORAL route every 6 hours for 10 days; 40 capsule; Refills: 0, cp Product Selection Permitted - Ibuprofen 800 mg Oral Tablet - take 1 tablet by ORAL route every 8 hours As needed take with food; 30 tablet; cp Refills: 0, Product Selection Permitted Signatures: Dispatcher [employer] Dylan Woodward MD MD cha Williams, Irene, RN RN iw Dylan Sanches PA PA cp Ronnie Robertson aj2 Corrections: (The following items were deleted from the chart) 11:06 11:04 Skin: Positive for laceration(s), of the dorsal side of left hand, cp cp 11: 11:04 Neuro: Negative for numbness, weakness, cp cp 11: 11:04 Constitutional: Negative for fever, poor PO intake, cp cp 11: 11:04 Cardiovascular: Negative for chest pain, cp cp 11: 11:04 Respiratory: Negative for cough, shortness of breath, cp cp 11:13 11/26 17:30 Wound Repair of 3.5cm ( 1.4in ) subcutaneous laceration to dorsal side of cp left hand. Irregularly shaped.. Distal neuro/vascular/tendon intact. Anesthesia: Wound infiltrated with 4 mls of 1% lidocaine. Wound prep: Moderate cleansing by me, Wound irrigation by me. Skin closed with 6 5-0 Prolene using interrupted sutures and sterile technique. Dressed with Bacitracin, 4x4's, pressure dressing. Patient tolerated well. cp
--- NOTE | 2020-11-26 17:43 | ER ---
Nurse's Notes [facility] Name: Tad Gray Age: 30 yrs Sex: Male : 1990 Arrival Date: 11/26/2020 Time: 15:37 Bed 24 Private MD: Diagnosis: Laceration without foreign body of left hand, initial encounter Presentation: 11/26 15:37 Chief complaint: EMS states: pt punched a car window with his left hand this morning , iw still bleeding. Coronavirus screen: At this time, the client does not indicate any symptoms associated with coronavirus-19. Ebola Screen: Patient negative for fever greater than or equal to 101.5 degrees Fahrenheit, and additional compatible Ebola Virus Disease symptoms Patient denies exposure to infectious person. Patient denies travel to an Ebola-affected area in the 21 days before illness onset. No symptoms or risks identified at this time. Complicating Factors: Glass or an other foreign body is present in the wound. Initial Sepsis Screen: Does the patient meet any 2 criteria? No. Patient's initial sepsis screen is negative. Does the patient have a suspected source of infection? No. Patient's initial sepsis screen is negative. Risk Assessment: Do you want to hurt yourself or someone else? Patient reports no desire to harm self or others. Onset of symptoms was November 26, 2020. 15:37 Method Of Arrival: EMS: [facility] 15:37 Acuity: TYLER 3 iw Historical: - Allergies: 16:14 No Known Allergies; iw - Home Meds: 16:14 None [Active]; iw - PMHx: 16:14 None; iw - Immunization history:: None. - Social history:: Smoking status: unknown. Screenin:19 Abuse screen: Denies threats or abuse. Denies injuries from another. Nutritional aj2 screening: No deficits noted. Tuberculosis screening: No symptoms or risk factors identified. Fall Risk None identified. Assessment: 16:19 Pain: Complains of pain in palmar aspect of distal phalanx of left little finger, aj2 palmar aspect of middle phalanx of left little finger, palmar aspect of proximal phalanx of left little finger, palmar aspect of distal phalanx of left ring finger, palmar aspect of middle phalanx of left ring finger and palmar aspect of proximal phalanx of left ring finger Pain does not radiate. Pain currently is 10 out of 10 on a pain scale. Quality of pain is described as throbbing, Pain began suddenly, Is continuous, Alleviated by nothing. Aggravated by increased activity, repositioning. Musculoskeletal: Swelling. 18:47 Reassessment: Patient appears in no apparent distress at this time. Patient and/or aj2 family updated on plan of care and expected duration. Pain level reassessed. Patient is alert, oriented x 3, equal unlabored respirations, skin warm/dry/pink. Patient states feeling better. Patient states symptoms have improved. Vital Signs: 16:15 BP 142 / 97; Pulse 75; Resp 16; Temp 98.3; Pulse Ox 99% on R/A; Weight 70.31 kg; Height iw 5 ft. 9 in. (175.26 cm); Pain 10/10; 16:19 BP 128 / 85; Pulse 64; Resp 18; Temp 98.3; Pulse Ox 100% ; aj2 18:47 BP 124 / 85; Pulse 64; Resp 18; Temp 98.3; Pulse Ox 100% ; aj2 16:15 Body Mass Index 22.89 (70.31 kg, 175.26 cm) iw ED Course: 15:37 Patient arrived in ED. iw 15:38 Dylan Sanches PA is PHCP. cp 15:38 Dylan Philippe MD is Attending Physician. cp 15:38 Triage completed. iw 15:55 XRAY Hand LEFT 3 View In Process Unspecified. EDMS 16:13 Ronnie Robertson is Primary Nurse. aj2 16:19 No apparent distress. Appears tearful. aj2 16:19 Patient has correct armband on for positive identification. aj2 16:19 No provider procedures requiring assistance completed. Patient did not have IV access aj2 during this emergency room visit. 17:42 Anders Thacker MD is Referral Physician. cp 18:47 No apparent distress. Resting quietly. aj2 Administered Medications: 16:12 Drug: HYDROcodone-acetaminophen 5 mg-325 mg 1 tabs Route: Feeding Tube; iw 16:16 Not Given (tetanus in ): Tetanus-Diphtheria Toxoid Adult 0.5 ml IM once iw 16:30 Drug: Bupivacaine (0.5 %) 10 ml Volume: 10 ml; Route: Infiltration; aj2 17:00 Drug: KeFLEX (cephalexin) 500 mg Route: PO; aj2 Outcome: 17:42 Discharge ordered by . maik 18:46 Discharged to home ambulatory. aj2 18:46 Condition: stable 18:46 Discharge instructions given to patient, Instructed on discharge instructions, follow up and referral plans. Demonstrated understanding of instructions, follow-up care, medications, Prescriptions given X 2. 18:49 Patient left the ED. aj2 Signatures: Dispatcher [employer] EDCarmen Avalos RN RN Dylan Atwood PA PA cp Jenkins, Angelea aj2
[2020-11-26] MEDS ORDERED: CEPHALEXIN 250 MG CAP ONE (19:10)
[2020-11-27 06:05] VITALS: TEMP 98.3
[2020-11-27 06:07] VITALS: O2SAT 100
[2020-11-27 06:08] VITALS: BP 124/85
== END 2020-11-26 18:49 | disposition home or self-care (01) ==
LOC: ER 15:33
PROC: 0JQK0ZZ Repair Left Hand Subcutaneous Tissue and Fascia, Open Approach (ICD-10-PCS; principal; 2020-11-26)
DX: S61.412A Laceration without foreign body of left hand, initial encounter (principal); W25.XXXA Contact with sharp glass, initial encounter
CPT/HCPCS: 90714; 99284

== ENCOUNTER 2020-12-15 20:43 | Emergency (ER) | payer SELFPAY ==
--- NOTE | 2020-12-15 21:55 | RAD REPORT ---
EXAM DESCRIPTION: RAD - Hand Right 3 View - 12/15/2020 9:17 pm CLINICAL HISTORY: Pain;Deformityfall history COMPARISON: No comparisons FINDINGS: No fracture is identified. There is dorsal dislocation of the fourth and fifth metacarpals at the carpal- metacarpal joint spaces. No periosteal reaction. No carpal bone alignment abnormality . Radiocarpal joint space is normal. No foreign body or significant soft tissue abnormality. IMPRESSION: Dorsal dislocation of the fourth and fifth metacarpals at the carpal- metacarpal joint s pace.
[2020-12-15] MEDS ORDERED: HYDROCODONE/APAP 5/325 MG TAB ONE (22:11)
--- NOTE | 2020-12-16 00:14 | EDPHYS ---
Physician Documentation [facility] Name: Tad Gray Age: 30 yrs Sex: Male : 1990 Arrival Date: 12/15/2020 Time: 20:43 Bed 11 Private MD: ED Physician Hermann Sanchez HPI: 12/15 21:19 This 30 yrs old Male presents to ER via Ambulatory with complaints of Hand mh7 Injury. 21:19 The patient or guardian reports injury, pain. The complaints affect the right hand. mh7 Context: The problem was sustained on a street or driveway, resulted from a fall, slipped. Onset: The symptoms/episode began/occurred just prior to arrival, today. Modifying factors: The symptoms are alleviated by nothing, the symptoms are aggravated by movement. Associated signs and symptoms: Pertinent negatives: cyanosis distally, decreased sensation distally, fever, nausea, numbness distally, tingling distally, vomiting. Severity of symptoms: At their worst the symptoms were moderate, earlier today, in the emergency department the symptoms are unchanged. Historical: - Allergies: 21:15 No Known Allergies; bb - Immunization history:: Adult Immunizations unknown. - Social history:: Smoking status: unknown. ROS: 21:19 Constitutional: Negative for fever, chills, and weight loss, Eyes: Negative for injury, mh7 pain, redness, and discharge, ENT: Negative for injury, pain, and discharge, Neck: Negative for injury, pain, and swelling, Cardiovascular: Negative for chest pain, palpitations, and edema, Respiratory: Negative for shortness of breath, cough, wheezing, and pleuritic chest pain, Abdomen/GI: Negative for abdominal pain, nausea, vomiting, diarrhea, and constipation, Back: Negative for injury and pain, : Negative for injury, bleeding, discharge, and swelling, Skin: Negative for injury, rash, and discoloration, Neuro: Negative for headache, weakness, numbness, tingling, and seizure, Psych: Negative for depression, anxiety, suicide ideation, homicidal ideation, and hallucinations, Allergy/Immunology: Negative for hives, rash, and allergies, Endocrine: Negative for neck swelling, polydipsia, polyuria, polyphagia, and marked weight changes, Hematologic/Lymphatic: Negative for swollen nodes, abnormal bleeding, and unusual bruising. Exam: 21:19 Head/Face: Normocephalic, atraumatic. [facility] 21:19 Skin: Warm, dry with normal turgor. Normal color with no rashes, no lesions, and no evidence of cellulitis. Neuro: Awake and alert, GCS 15, oriented to person, place, time, and situation. Cranial nerves II-XII grossly intact. Motor strength 5/5 in all extremities. Sensory grossly intact. Cerebellar exam normal. Normal gait. Psych: Awake, alert, with orientation to person, place and time. Behavior, mood, and affect are within normal limits. 21:19 Constitutional: The patient appears in no acute distress, alert, awake, uncomfortable. 21:19 Musculoskeletal/extremity: Extremities: noted in the right hand, dorsal aspect: pain, swelling, tenderness, ROM: limited active range of motion due to pain, in the right hand, limited passive range of motion due to pain, in the right hand, Circulation is intact in all extremities. Sensation intact. Compartment Syndrome exam of affected extremity: is normal. no numbness, no tingling, no sensation deficit, no palor, no weak pulses, Joints: All joints appear normal with full range of motion. Weight bearing: able to fully bear weight, without difficulty, Tendon exam: specific tendon testing normal through active and passive range of motion Procedures: 22:20 Reduction: of the right hand, [facility], using traction, manipulation, flexion, Immobilized [facility] with Ortho-Glass. Patient tolerated well. 22:20 Splinting: Splint applied to right hand using Orthoglass splint, applied by myself. [facility] tech. Examined by me, post splint application: neurovascular intact, 2+ distal pulses palpable, brisk capillary refill noted, Patient tolerated well. 12/16 00:10 Splinting: post reduction film - reveals normal alignment. Reduction: Post reduction [facility] film - reveals normal alignment. MDM: 00:10 Differential diagnosis: dislocation, closed fracture. Data reviewed: vital signs, [facility] nurses notes, radiologic studies, plain films. ED course: Informed by nursing staff the patient eloped from the ED prior to receiving final results.. 00:14 Patient medically screened. [facility] 12/15 21:08 Order name: XRAY Hand RIGHT 3 View; Complete Time: 21:57 mw3 12/15 22:34 Order name: Hand Right 3 View XRAY [facility] 12/15 22:34 Order name: Splint - Ulnar Angieter; Complete Time: 22:51 [facility] Administered Medications: 12/15 21:48 Drug: [place] (HYDROcodone-acetaminophen) 5 mg-325 mg 1 tabs {Note: RASS 0.} Route: PO; bb 23:35 Not Given (Patient Eloped): Ketorolac 60 mg IM once bb Disposition Summary: 12/16/20 00:14 Eloped Disposition: after being seen by provider [facility] Problem: new [facility] Symptoms: have improved [facility] Reason: unknown [facility] Condition: Stable [facility] Diagnosis - Right Hand 4th \T\ 5th Metacarpal Dislocation [facility] Followup: [facility] - With: Private Physician - When: 1 - 2 days - Reason: Worsening of condition, Recheck today's complaints, Continuance of care, Re-evaluation by your physician Followup: [facility] - With: Anders Thacker MD - When: 1 - 2 days - Reason: Worsening of condition, Recheck today's complaints Signatures: Dispatcher [employer] Madelaine Ventura RN RN bb Holmes, Maurice, MD MD [facility] Corrections: (The following items were deleted from the chart) 12/16 00:08 12/15 23:55 Reduction: of the right hand, 4th and 5th MC joint, 7 [facility]
--- NOTE | 2020-12-16 00:14 | ER ---
Nurse's Notes [facility] Name: Tad Gray Age: 30 yrs Sex: Male : 1990 Arrival Date: 12/15/2020 Time: 20:43 Bed 11 Private MD: Diagnosis: Right Hand 4th \T\ 5th Metacarpal Dislocation Presentation: 12/15 21:12 Chief complaint: Patient states: he fell about an hour ago injuring his right hand pt bb states he thinks it is broke. Coronavirus screen: At this time, the client does not indicate any symptoms associated with coronavirus-19. Ebola Screen: No symptoms or risks identified at this time. Initial Sepsis Screen: Does the patient meet any 2 criteria? No. Patient's initial sepsis screen is negative. Does the patient have a suspected source of infection? No. Patient's initial sepsis screen is negative. Risk Assessment: Do you want to hurt yourself or someone else? Unable to obtain. Note pt is hysterical unable to cooperative c/o severe pain to right hand. Onset of symptoms was December 15, 2020. 21:12 Method Of Arrival: Ambulatory bb 21:12 Acuity: TYLER 4 bb Triage Assessment: 21:15 General: Appears uncomfortable, Behavior is agitated, uncooperative. Pain: Complains of bb pain in right hand. Historical: - Allergies: 21:15 No Known Allergies; bb - Immunization history:: Adult Immunizations unknown. - Social history:: Smoking status: unknown. Screenin:20 Abuse screen: Denies threats or abuse. Nutritional screening: No deficits noted. bb Tuberculosis screening: No symptoms or risk factors identified. Fall Risk None identified. Assessment: 21:20 General: Appears uncomfortable, Behavior is agitated, crying, uncooperative. Pain: bb Complains of pain in right hand. Neuro: Level of Consciousness is awake, alert, obeys commands, Oriented to person, place, situation. Cardiovascular: Capillary refill < 3 seconds Patient's skin is warm and dry. Respiratory: Airway is patent Respiratory effort is even, unlabored, Respiratory pattern is regular. GI: No deficits noted. : No signs and/or symptoms were reported regarding the genitourinary system. Derm: Skin is intact. Musculoskeletal: Swelling present in right hand. 23:34 Reassessment: Reassessment: pt not in room Dr Sanchez notified. bb ED Course: 20:43 Patient arrived in ED. bp1 21:09 Hermann Sanchez MD is Attending Physician. 7 21:13 Triage completed. bb 21:17 XRAY Hand RIGHT 3 View In Process Unspecified. EDMS 21:20 Patient has correct armband on for positive identification. bb 21:48 Madelaine Agosto RN is Primary Nurse. bb 22:43 Hand Right 3 View XRAY In Process Unspecified. EDMS 23:05 Orthoglass splint: Ulnar gutter/Boxer splint applied on right forearm. ds4 12/16 00:12 Anders Thacker MD is Referral Physician. 7 Administered Medications: 12/15 21:48 Drug: [place] (HYDROcodone-acetaminophen) 5 mg-325 mg 1 tabs {Note: RASS 0.} Route: PO; bb 23:35 Not Given (Patient Eloped): Ketorolac 60 mg IM once bb Outcome: 12/16 00:29 Patient left the ED. patricia Signatures: Dispatcher [employer] EDMS Madelaine Agosto, JAREN RN bb Braulio Neves ds4 Concetta Pedro bp1 Hermann Sanchez MD MD 7 Corrections: (The following items were deleted from the chart) 00:29 12/15 23:34 Reassessment: patricia gomez
--- NOTE | 2020-12-17 12:21 | RAD REPORT ---
EXAM DESCRIPTION: RAD - Hand Right 3 View - 12/15/2020 10:43 pm CLINICAL HISTORY: Post reduction. COMPARISON: The previous images are not available for review. TECHNIQUE: Three views of the right hand were obtained: PA, oblique, and lateral radiographs. FINDINGS: No acute osseous abnormality. Alignment is maintained. No concerning osseous lesion. No ra diopaque foreign object in the soft tissues. Splint material in place. IMPRESSION: No acute osseous abnormality identified, within the limitation of overlying splint mat erial. Electronically signed by: Piper Nevarez MD 12/15/2020 11:07 PM CDT Due to temporary technical issues with the PACS/Fluency reporting system, reports are being signed by the in house radiologist without review as a courtesy to ensure prompt reporting. The interpreting r adiologist is fully responsible for the content of the report.
== END 2020-12-16 00:29 | disposition left against medical advice (07) ==
LOC: ER 20:43
PROC: 0RSUXZZ Reposition Right Metacarpophalangeal Joint, External Approach (ICD-10-PCS; principal; 2020-12-16)
PROC: 0RSUXZZ Reposition Right Metacarpophalangeal Joint, External Approach (ICD-10-PCS; 2020-12-16)
DX: S63.064A Dislocation of metacarpal (bone), proximal end of right hand, initial encounter (principal); W01.0XXA Fall on same level from slipping, tripping and stumbling without subsequent striking against object, initial encounter
CPT/HCPCS: 99284

== ENCOUNTER 2021-03-01 12:45 | Emergency (ER) | payer SELFPAY ==
--- OUTSIDE RECORDS SUMMARY | 2021-03-01 12:47 | XMS REPORT | Continuity of Care Document ---
:1990 Author Organization [facility] t Address [address] [place] [address] Care Team Providers Name Role Phone PCP, DOES NOT HAVE A Primary Care Physician Unavailable TITUS Attending Clinician Unavailable Titus SALMON Attending Clinician Judy Attending Clinician Unavailable Melodie JONES, S Attending Clinician MELODIE S Attending Clinician Unavailable Doctor Unassigned, Name Attending Clinician Unavailable Hermes SALMON Attending Clinician Physician, Primary or Family Admitting Clinician Unavailabl e Payers Payer Name Policy Type Policy Number Effective Date Expiration Date Home [employer] DIS[employer] [id number] 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 [employer] 00:00:00 Problems This patient has no known problems. Allergies, Adverse Reactions, Alerts Allergy Allergy Status Severity Reaction(s) Onset Inactive Treating Comm ents Source Name Type Date Date Clinician No Known DA Active [facility] 00:00: [address] No Known DA Active U [facility] 08-23 [facility] 00:00: [address] NO KNOWN Drug Active Univers ALLERGIE Class ity of [facility] Social History Social Habit Start Date Stop Date Quantity Comments Source Exposure to Not sure [facility] SARS-CoV-2 (event) Medica l Branch Sex Assigned At [birth year] [facility] 00:00:00 00:00:00 Medical Branch Smoking Status Start Date Stop Date Source Unknown if ever smoked [facility] Medications Ordered Filled Start Stop Current Ordering Indication Dosage Frequency Signature Comments Components Source Medication Medication Date Date Medication? Clinician (SIG) Name Name kirstinx:diph 2020-03 No 15mL 15 mL, Uni vers enhydrAMINE 04-10 Oral, ity of :lidocaine 16:00: 15:07 ONCE, 1 Basim as 2 % viscous 00 :00 dose, On [facility] 1:1:1 Alycia Branch (FIRST-MOUT 02/07/21 at [facility]) 1000, HERIBERTO oral suspension 15 mL metoclopram 2020-03 No 10mg 10 mg, Uni vers sangita HCl 04-10 Slow IV ity of (REGLAN) 16:00: 15:07 Push, [place] injection 00 :00 ONCE, 1 Medical 10 mg dose, On Branch Alycia 02/07/21 at 1000, HERIBERTO NaCl 0.9% 2020-03 No 1000mL at 999 Uni vers (NS) bolus 04-10 mL/hr, ity of infusion 16:00: 17:06 1,000 mL, Basim as 1,000 mL 00 :00 IV Medical Infusion, Branch ONCE, 1 dose, On Alycia 02/07/21 at 1000, HERIBERTO Vital Signs Vital Name Observation Time Observation Value Comments Source Systolic blood 2021-02-07 14:39:00 130 mm[Hg] Univer sity [facility] Diastolic blood 2021-02-07 14:39:00 87 mm[Hg] Unive [facility] Heart rate 2021-02-07 14:39:00 73 /min [facility] Body temperature 2021-02-07 14:39:00 36.78 Ericka [facility] Respiratory rate 2021-02-07 14:39:00 18 /min [facility] Body weight 2021-02-07 14:39:00 68.04 kg [facility] BMI 2021-02-07 14:39:00 24.21 kg/m2 [facility] Oxygen saturation in 2021-02-07 14:39:00 100 /min [facility] blood by [facility] Pulse oximetry Branch Procedures Procedure Date / Time Performing Clinician Source Performed LIPASE 2021-02-07 15:06:00 Yudelka Qureshi [facility] COMP. METABOLIC PANEL 2021-02-07 15:06:00 Yudelka Qureshi [facility] ([id number]) Medical [place] CBC WITH DIFF 2021-02-07 15:06:00 Yudelka Qureshi [facility] URINALYSIS 2021-02-07 15:06:00 Yudelka Qureshi [facility] URINE DRUG (IMMUNOASSAY) 2021-02-07 15:06:00 Yudelka Qureshi [facility] nch SCREEN W/O REFLEX CONSENT/REFUSAL FOR 2021-02-07 14:32:31 Doctor Unassigned, No Un [facility] DIAGNOSIS AND TREATMENT Name Medical Branch Encounters Start End Encounter Admission Attending Care Care Encounter Source Date/Time Date/Time Type Type Clinicians Facility Department ID 2021-02-07 2021-02-07 Emergency X TITUS [facility] ERT [id number] Univers 08:40:00 11:07:[address] [facility] 2021-02-07 2021-02-07 Emergency Titus [facility] [id number] Univers 08:40:00 11:07:00 Yudelka HALL [id number] anastasia allen [place] [id number] [facility] [id number] [place] [id number] Branch 2020-08-23 2020-08-23 Emergency EM COLE Kim [id number] [facility] 12:59:00 15:30:00 [place] [id number] [facility] 2020-02-10 2020-02-10 Emergency Melodie GALIAM [id number] 16:19:00 16:39:00 [place] [id number] [place] 4.2.7.2.686 [place] [id number] [facility] 2020-02-10 2020-02-10 Emergency X MELODIE [facility] ERT [id number] Univers 16:19:00 16:19:[address] [facility] 2020-02-10 2020-02-10 Orders Doctor NELSON [id number] 00:00:00 00:00:00 Only Unassigned, KEYSHA [id number] [facility] [id number] 2018-10-26 2018-10-26 [facility] Hermes [facility] [id number] 13:26:56 23:59:00 Encounter , Isabel [id number] Jason [place] 4.2.7.2.686 [facility] [id number] Results Test Description Test Time Test Comments Results Result Comments Source COMP. METABOLIC PANEL ([id number]) 2021-02-07 15:38:42 Test Item Value Reference Range Interpretation Comme nts NA (test code = 0318002670) 137 mmol/L 135-145 K (test code = 1341373347) 4.2 mmol/L 3.5-5.0 CL (test code = 2130634204) 103 mmol/L 98-108 CO2 TOTAL (test code = 3928844967) 26 mmol/L 23-31 AGAP (test code = 1703569758) 2-16 BUN (test code = 1383168237) 13 mg/dL 7-23 GLUCOSE (test code = 3616601031) 112 mg/dL 70-110 H CREATININE (test code = 0.90 mg/dL 0.60-1.25 1086090257) TOTAL BILI (test code = 0.5 mg/dL 0.1-1.9 7706601694) CALCIUM (test code = 3879305658) 9.5 mg/dL 8.6-10.6 T PROTEIN (test code = 4193219697) 7.7 g/dL 6.3-8.2 ALBUMIN (test code = 7338347009) 4.5 g/dL 3.5-5.0 ALK PHOS (test code = 5078989646) 61 U/L 34-122 ALTv (test code = 1742-6) 21 U/L 5-50 AST(SGOT) (test code = 4974044893) 25 U/L 13-40 eGFR (test code = 6303455444) mL/min/1.73m2 DIEGO (test code = DIEGO) Association of Glomerular Filtration Rate (GFR) and Staging of Kidney Disease* + +-------- + ------+| GFR (mL/min/1.73 m2) ?| With Kidney Damage ?| ?Without Kidney Damage+ +-- + +| ?>90 ?| ?Stage one ?| ? Normal ?+ +------- + -------+| ?60-89 ?| ?Stage two ?| ? Decreased GFR ? + +-------- + ------+| ?30-59 ?| ?Stage three ?| ? Stage three ? + +-------- + ------+| ?15-29 ?| ?Stage four ? | ? Stage four ?+ +------- + -------+| ?<15 (or dialysis) ? ?| ?Stage five ? | ? Stage five ?+ +------- + -------+ *Each stage assumes the associated GFR level has been in effect for at least three months. ?Stages 1 to 5, with or without kidney disease, indicate chronic kidney disease. Notes: Determination of stages one and two (with eGFR >59mL/min/1.73 m2) requires estimation of kidney damage for at least three months as defined by structural or functional abnormalities of the kidney, manifested by either:Pathological abnormalities or Markers of kidney damage (including abnormalities in the composition of the blood or urine or abnormalities in imaging tests). Lab Interpretation (test code = Abnormal 38016-1) [facility] 15[facility]02 Test Item Value Reference Range Interpretation Comments LIPASE (test code = 5407055862) 63 U/L 0-220 Lab Interpretation (test code = Normal 22388-0) [facility] [id number] 15:25:40 Test Item Value Reference Range Interpretation Comments WBC (test code = See_Comment [Automated 7929-2) message] The sy stem which generated this result transmitted reference range : 4.20 - 10.70 10*3/?L. The reference range was not used to interpret this result as normal/abnormal . RBC (test code = See_Comment [Automated 180-8) message] The sy stem which generated this result transmitted reference range : 4.26 - 5.52 10*6/?L. The reference range was not used to interpret this result as normal/abnormal . HGB (test code = 15.8 g/dL 12.2-16.4 718-7) HCT (test code = 45.4 % 38.4-49.3 4544-3) MCV (test code = 92.5 fL 81.7-95.6 787-2) MCH (test code = 32.2 pg 26.1-32.7 785-6) MCHC (test code = 34.8 g/dL 31.2-35.0 786-4) RDW-SD (test code = 42.7 fL 38.5-51.6 02453-0) RDW-CV (test code = 12.4 % 12.1-15.4 788-0) PLT (test code = See_Comment [Automated 777-3) message] The sy stem which generated this result transmitted reference range : 150 - 328 10*3/ ?L. The reference r sara was not used to interpret this result as normal/abnormal . MPV (test code = 9.5 fL 9.8-13.0 L 60987-1) NRBC/100 WBC (test See_Comment [Automat ed code = 5214169443) message] The system which generated this result transmitted reference range : 0.0 - 10.0 /100 WBCs. The refer ence range was not u sed to interpret th is result as normal/abnormal . NRBC x10^3 (test code <0.01 See_Comment [Auto mated = 7796983742) message] The s ystem which generated this result transmitted reference range : 10*3/?L. The reference range was not used to interpret this result as normal/abnormal . GRAN MAT (NEUT) % 68.7 % (test code = 770-8) IMM GRAN % (test code 0.40 % = 8963266149) LYMPH % (test code = 21.6 % 736-9) MONO % (test code = 6.8 % 5905-5) EOS % (test code = 1.6 % 713-8) BASO % (test code = 0.9 % 706-2) GRAN MAT x10^3(ANC) 5.25 10*3/uL 1.99-6.95 (test code = 7064172463) IMM GRAN x10^3 (test 0.03 10*3/uL 0.00-0.06 code = 2251810901) LYMPH x10^3 (test code 1.65 10*3/uL 1.09-3.23 = 731-0) MONO x10^3 (test code 0.52 10*3/uL 0.36-1.02 = 742-7) EOS x10^3 (test code = 0.12 10*3/uL 0.06-0.53 711-2) BASO x10^3 (test code 0.07 10*3/uL 0.01-0.09 = 704-7) Lab Interpretation Abnormal (test code = 69134-4) [facility] [id number] 13:51:00 Test Item Value Reference Range Interpretation Comments SODIUM (test code 140 MMOL/L 137-145 N = NA) POTASSIUM (test 3.6 MMOL/L 3.5-5.1 N code = K) CHLORIDE (test 103 MMOL/L 98-107 N code = CL) CARBON DIOXIDE 17 MMOL/L 22-30 L (test code = CO2) GLUCOSE (test 109 MG/DL 74-106 H code = GLU) BLOOD UREA 18 MG/DL 9-20 N NITROGEN (test code = BUN) GLOMERULAR 51 Reporting units : FILTRATION RATE ml/min/1.73 m2 (Modified (test code = GFR) MDRD Formu la)Reference Range: > or = 6 0 ml/min/1.73 m2 CREATININE (test 1.60 MG/DL 0.66-1.25 H code = CREAT) TOTAL PROTEIN 10.2 G/DL 6.2-7.6 H [facility] Clinical Diagnostic (test code = has made us azra re of PROT) newinformation regarding the potential i nterference ofEltrombopag (a bone marrow stimulan t used to treatthrombocyt onmenia and aplastic anemia ) with specific assays on the Vitros 5600 of which Total Protein is one of thoseassays per formed in our lab.Interfe rence testing perform ed at Orth[facility] determined that Eltrombopag does interfere with Vitros Total Protein asfollowsEltrom bopag Interference fo r Vitros Product Total Protein:======= Eltrombopag Max Observed A vg. BiasConcentrati on Concentration Concentration== ==== 2.5 mg/dl 6.0 g/dl +0.41 +0.34 3.5 mg/dl 6.0 g/dl +0.50 +0.45 5 mg/dl 6.0 g/dl +0.73 +0.65 2.5 mg/dl 8.0 g/dl +0.44 +0.41 3.5 mg/dl 8.0 g/dl +0.55 +0.52 5 mg/dl 8.0 g/dl +0.86 +0.77 ALBUMIN (test 5.4 G/DL 3.5-5.0 H code = ALB) CALCIUM (test 11.2 MG/DL 8.4-10.2 H code = CA) BILIRUBIN TOTAL 1.2 MG/DL 0.2-1.3 N Eltrombopag Interference (test code = for Vitros Prod uct TBil, BILT) BuBc: Assa y Eltrombopag Analyte/ Max Observed Avg. Bias Concentrati on Concentration Concentration== ====TBil 7mg/dl T Hussain/ 1.2mg/dl +0.23 mg.dl +0.20mg/dlBuBc 3.5mg/dl Bu/0.8mg/dl +0.25mg/dl +0 .24mg/dlBuBc 7 mg/dl Bu/14.2mg/dl +0.38mg/dl +0.25mg/dlBuBc 5mg/dl Bc/0mg/dl +0.25mg/dl +0 .15mg/dlBuBc 3.5mg/dl Bc/2.8mg/dl +0.25mg/dl +0.23mg/dl SGOT/AST (test 50 UNITS/L 17-59 N code = AST) SGPT/ALT (test 31 UNITS/L <50 code = ALT) ALKALINE 88 UNITS/L 38-126 N PHOSPHATASE (test code = ALKP) CREATINE KINASE (CK)2020-08-23 13:51:00 Test Item Value Reference Range Interpretation Comments CREATINE KINASE (CK) (test code = 527 UNITS/L 55-170 H CK) CBC W/AUTO [id number] 13:40:00 Test Item Value Reference Range Interpretation Comments WHITE BLOOD CELL (test code = 12.1 K/MM3 3.8-9.8 H WBC) RED BLOOD CELL (test code = 5.40 M/MM3 3.95-5.67 N RBC) HEMOGLOBIN (test code = HGB) 17.5 G/DL 12.4-16.7 H HEMATOCRIT (test code = HCT) 48.4 % 35.9-49.5 N MEAN CELL VOLUME (test code = 90 fL 81.7-96.1 N MCV) MEAN CELL HGB (test code = MCH) 32.4 pg 27.6-33.2 N MEAN CELL HGB CONCETRATION 36.2 % 32.9-35.5 H (test code = MCHC) RED CELL DISTRIBUTION WIDTH 13.0 % 12.1-15.2 N (test code = RDW) PLATELET COUNT (test code = 334 K/MM3 129-368 N PLT) MEAN PLATELET VOLUME (test code 9.7 fl 7.4-10.4 N = MPV) NEUTROPHIL % (test code = NT%) 71.2 % 43-75 N IMMATURE GRANULOCYTE % (test 0.3 % 0.0-2.0 N code = IG%) LYMPHOCYTE % (test code = LY%) 19.2 % 14-44 N MONOCYTE % (test code = MO%) 8.6 % 4-13 N EOSINOPHIL % (test code = EO%) 0.2 % 0-6 N BASOPHIL % (test code = BA%) 0.5 % 0-2 N NUCLEATED RBC % (test code = 0.0 % 0-1.0 N NRBC%) NEUTROPHIL # (test code = NT#) 8.59 K/mm3 2.0-7.6 H IMMATURE GRANULOCYTE # (test 0.04 x10 3/uL 0-0.03 H code = IG#) LYMPHOCYTE # (test code = LY#) 2.31 K/mm3 1.0-3.8 N MONOCYTE # (test code = MO#) 1.04 K/mm3 0.1-0.8 H EOSINOPHIL # (test code = EO#) 0.02 K/mm3 0.0-0.2 N BASOPHIL # (test code = BA#) 0.06 K/mm3 0.0-0.2 N NUCLEATED RBC # (test code = 0.00 K/mm3 0.0-0.1 N NRBC#)"
--- NOTE | 2021-03-01 23:06 | ER ---
Nurse's Notes [facility] Name: Tad Gray Age: 31 yrs Sex: Male : 1990 Arrival Date: 03/01/2021 Time: 12:49 Bed Waiting Private MD: Diagnosis: Presentation: 03/01 13:30 Chief complaint: Patient states: epigastric abdominal pain x 1 month, denies N/V/D, march reports worsening pain, states "I can't eat, I've lost some weight in the past couple of weeks, it's a constant pain, unbearable". Pt denies CP, or fever. Pt reports mild SOB "I'm constantly out of breath because I'm tensing up". Coronavirus screen: Vaccine status: Patient reports being unvaccinated. Client denies travel out of the [place] in the last 14 days. Ebola Screen: Patient negative for fever greater than or equal to 101.5 degrees Fahrenheit, and additional compatible Ebola Virus Disease symptoms Patient denies exposure to infectious person. Patient denies travel to an Ebola-affected area in the 21 days before illness onset. No symptoms or risks identified at this time. Initial Sepsis Screen: Does the patient meet any 2 criteria? No. Patient's initial sepsis screen is negative. Does the patient have a suspected source of infection? No. Patient's initial sepsis screen is negative. Risk Assessment: Do you want to hurt yourself or someone else? Patient reports no desire to harm self or others. Onset of symptoms is unknown. 13:30 Method Of Arrival: Ambulatory march 13:30 Acuity: TYLER 3 march Triage Assessment: 13:33 General: Appears uncomfortable, Behavior is calm, cooperative. Pain: Complains of pain march in abdomen-epigastric pain. GI: Reports upper abdominal pain. Historical: - Allergies: 13:33 No Known Allergies; march - Home Meds: 13:33 None [Active]; march - PMHx: 13:33 None; march - PSHx: 13:33 left leg surgery; march - Immunization history:: Adult Immunizations up to date, Client reports having NOT received the Covid vaccine. - Social history:: Smoking status: Patient reports the use of cigarette tobacco products, Patient uses alcohol, occasionally. street drugs, marijuana. Vital Signs: 13:30 BP 132 / 109; Pulse 92; Resp 17; Temp 98.7; Pulse Ox 100% ; Weight 63.5 kg; Height 5 march ft. 6 in. (167.64 cm); Pain 10/10; 13:30 Body Mass Index 22.60 (63.50 kg, 167.64 cm) march ED Course: 12:49 Patient arrived in ED. ds1 13:33 Triage completed. march 23:05 Patient's name was called from ER lobby. No response. Unable to locate patient. Will bb disposition as left without being seen by a provider. Administered Medications: No medications were administered Outcome: 23:05 Patient left the ED. bb Signatures: Emmanuelle Hong ds1 Madelaine Agosto, RN RN bb Jessie Miranda RN RN march
[2021-03-02 00:26] VITALS: BP 132/109; TEMP 98.7; O2SAT 100
== END 2021-03-01 23:05 | disposition left against medical advice (07) ==
LOC: ER 12:45
DX: R10.9 Unspecified abdominal pain (principal); Z53.21 Procedure and treatment not carried out due to patient leaving prior to being seen by health care provider
CPT/HCPCS: 99281

== ENCOUNTER 2021-11-25 13:17 | Emergency (ER) | payer SELFPAY ==
--- OUTSIDE RECORDS SUMMARY | 2021-11-25 13:22 | XMS REPORT | Continuity of Care Document ---
:1990 Author Organization [facility] t Address [address] [place] [address] Care Team Providers Name Role Phone PCP, PATIENT DOES NOT HAVE A Primary Care Physician UnavailYUDELKA Garcia Attending Clinician Unavailable Yudelka Qureshi MD Attending Clinician Mitchell Kim Attending Clinician Unavailable Van Preston Attending Clinician VAN SEWELL Attending Clinician Unavailable Doctor Unassigned, [place] Attending Clinician Unavailable Miguel Angel Mirza MD Attending Clinician [phone] Octavio Bansal Attending Clinician Waqas Abdi Attending Clinician Physician, No Primary or Family Admitting Clinician UnavailToby Hughes Admitting Clinician Payers Payer Name Policy Type Policy Number Effective Date Expiration Date S ja CRENSHAW DISABILITY [id number] 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 [employer]CS 00:00:00 Problems Condition Condition Condition Status Onset Resolution Last Treating Co mments Source Name Details Category Date Date Treatment Clinician Date LEG PAIN LEG PAIN Diagnosis Active 2016-11-25 Memoria Active 11-25 14:14:00 l 11/25/2016 00:00: Hayder THOMPSON [address] TIB TIB Diagnosis Active 2016-05-26 Mem oria FRACTURE FRACTURE 2- 14:20:00 l Active 00:00: Anand 04/13/2016 00 [facility] TIB/FIB TIB/FIB Diagnosis Active 2016-04-13 Memoria FRACTURE FRACTURE 2- 21:35:00 l Active 00:00: Anand 04/13/2016 00 [facility] UNSP UNSP Diagnosis Active 2016-05-26 Mem oria FRACTURE FRACTURE 14:20:00 l OF SHAFT OF SHAFT Hayder n OF UNSP OF UNSP TIBIA, IN TIBIA, IN Active [facility] History of Past Illness Condition Condition Condition Status Onset Resolution Last Treating Co mments Source Name Details Category Date Date Treatment Clinician Date Pain in Pain in Problem 2016-11-28 2016-11-28 Memoria left leg left leg 11-25 04:50:43 04:50:43 l 11/25/2016 05:00: Hayder rodney 11/28/2016 00 [facility] Allergies, Adverse Reactions, Alerts Allergy Allergy Status Severity Reaction(s) Onset Inactive Treating Comm ents Source Name Type Date Date Clinician No Known DA Active [facility] 00:00: [address] No Known DA Active [facility] All[facility] [facility] 00:00: [address] NO KNOWN Drug Active Univers ALLERGIE Class ity of [facility] Social History Social Habit Start Date Stop Date Quantity Comments Source Exposure to Not sure [facility] SARS-CoV-2 (event) Medica Branch Sex Assigned At [birth year] [facility] 00:00:00 00:00:00 [facility] Branch Smoking Status Start Date Stop Date Source Unknown if ever smoked [facility] Social History 2016-11-25 17:32:12 [facility] Medications Ordered Filled Start Stop Current Ordering Indication Dosage Frequency Signature Comments Components Source Medication Medication Date Date Medication? Clinician (SIG) Name Name maalox:diph 2020-03 No 15mL 15 mL, Uni vers enhydrAMINE 04-10 Oral, ity of :lidocaine 16:00: 15:07 ONCE, 1 Basim as 2 % viscous 00 :00 dose, On Medi sally 1:1:1 Alycia Branch ([facility]OUT 02/07/21 at [facility]) 1000, HERIBERTO oral suspension 15 mL metoclopram 2020-03 No 10mg 10 mg, Uni vers sangita HCl 04-10- Slow IV ity of (REGLAN) 16:00: 15:07 Push, [place] injection 00 :00 ONCE, 1 Medical 10 mg dose, On Branch Alycia 02/07/21 at 1000, HERIBERTO NaCl 0.9% 2020-03- No 1000mL at 999 Uni vers (NS) bolus 04-10 mL/hr, ity of infusion 16:00: 17:06 1,000 mL, Basim as 1,000 mL 00 :00 IV Medical Infusion, Branch ONCE, 1 dose, On Alycia 02/07/21 at 1000, HERIBERTO Ondansetron Yes 4 mg = 1 Me [...] MG Oral 40 tab, 0 Tablet Refill(s) [Sesser 5/325] senna 8.6 Yes 17.2 mg = Mem oria mg oral 2-16 2 tab, PO, l tablet 21:07: Bedtime, Anand 00 PRN as needed for constipati on, X 10 day, # 20 tab, 0 Refill(s) Aspirin 325 Yes 325 mg = 1 Memoria MG Enteric 2-16 tab, PO, l Coated 21:07: BID, # 42 Hayder n Tablet 00 tab, 0 Refill(s) POLYETHYLEN No Notes: Barrett bruce E GLYCOL 2-15 Dissolve l 3350 23:00: in 8 oz of [place] 00 water or juice. (Same as: Miralax) magnesium No Notes: Memori a citrate 2-15 (Same as: l 58.2 MG/ML 16:16: Citrate of H ermann Oral 00 Magnesia) Solution Concentrat ion: 1.745 gm / 30 mL Zofran No Notes: Memoria 2-15 (Same as: l 13:29: Zofran) [place] MEDICATION WASTE Product Size: 4 mg Product Wasted: ___ mg sodium No 1,000 mL, Memori a chloride 2-14 Rate: 125 l 0.9% 1000 22:14: ml/hr, Hayder n ml INJ 00 Infuse 1,000 mL over: 8 hr, Route: IV, Dosing Weight 63.636 kg, Total Volume: 1,000, Start date: 04/15/16 16:14:00 FULL TIME, Duration: 30 day, Stop date: 05/15/16 16:13:00 CDT influenza No Notes: Memori a virus 2-14 (Same as: l vaccine, 18:30: Fluzone Hayder n inactivated 00 Quadrivale nt, Fluarix Quadrivale nt) For 3 years of age and older (0.5 mL IM) Shake well before use Flomax No Notes: Memoria 2-14 (Same As: l 15:39: Flomax) Anand "Do Not Crush" sennosides, No Notes: Barrett bruce SKILLED NURSING 2-14 (Same as: l 03:00: Senokot) Cefazolin No Notes: Memori a 2-14 (Same As: l 02:00: Ancef, [place] 00 Kefzol) MEDICATION WASTE Product Size: 1000 mg Product Wasted: ___ mg Lovenox No Notes: Memoria 2-14 (Same as: l 00:30: Lovenox) [place] Ondansetron No Notes: Barrett bruce 2-13 (Same as: l 22:39: Zofran) Anand MEDICATION WASTE Product Size: 4 mg Product Wasted: ___ mg Naloxone No Notes: Memoria 2-13 Same as l 22:39: Narcan 00 Flumazenil No Notes: Memor ia 2-13 (Same as: l 22:39: Romazicon) Oxycodone No Notes: Memori a 2-13 (Same as: l 22:39: Roxicodone ) Hydromorpho No Notes: Barrett bruce ne 2-13 Same as: l 22:39: Dilaudid Ancef No Notes: Memoria 2-13 Same as: l 17:00: Ancef influenza No Notes: Memori a virus 2-13 (Same as: l vaccine, 15:00: Fluzone Hayder n inactivated 00 Quadrivale nt, Fluarix Quadrivale nt) For 3 years of age and older (0.5 mL IM) Shake well before use Docusate No Notes: Memoria 2-13 (Same as: l 15:00: Colace) (Do Not Crush) POLYETHYLEN No Notes: Barrett bruce E GLYCOL 2-13 Dissolve l 3350 15:00: in 8 oz of water or juice. (Same as: Miralax) celecoxib No Notes: Memori a 2-13 NSAID. l 15:00: Please Anand 00 check indication . Not for seizure. (Same As: CeleBREX) Enoxaparin No Notes: Memor ia 2-13 (Same as: l 06:00: Lovenox) Ketorolac No 30 mg, Memori a 2-13 Route: l 05:04: IVP, ONCE, Dosing Weight 63.636, kg, Priority: NOW, Start date: 04/13/16 23:04:00 FULL TIME, Duration: 1 doses or times, Stop date: 04/13/16 23:04:00 FULL TIME Acetaminoph No Notes: Max Memoria en 2-13 acetaminop l 05:04: hen 4000 mg/day (4 gm/day). (Same as: Tylenol Extra Strength) pregabalin No Notes: Memor ia 2-13 (Same as: l 05:04: Lyrica) Anand Tramadol No Notes: Not Mem oria 2-13 to exceed l 05:04: 400mg/day. Anand 00 (Same As: Ultram) Oxycodone No Notes: Memori a Hydrochlori 04-14 (Same as: l de 5 MG 05:04: Roxicodone Herm flower Oral Tablet 00 ) Dilaudid No Notes: Memoria 2-13 Same as l 04:46: Dilaudid iodixanol No 149 mL, Memor ia 04-14 Route: l 04:07: IVP, Drug Form: SOLN, Dosing Weight 63.636, kg, ONCALL, STAT, Start date: 04/13/16 22:07:00 FULL TIME, Duration: 1 doses or times, Dose = 2.2ml/kg, Max dose = 150ml -- "To be infused by Radiology Staff ONLY" Sodium No 1,000 mL, Memori a Chloride 04-14 1,000 l 0.154 03:41: ml/hr, MEQ/ML 00 Infuse Injectable Over: 1 Solution hr, Route: IV, ONCE, Priority: STAT, Dosing Weight 63.636 kg, Start date: 04/13/16 21:41:00 FULL TIME, Duration: 1 doses or times, Stop date: 04/13/16 21:41:00 FULL TIME Isolyte S No Notes: Memori a PH-7.4 04-14 (Same as: l (Bolus) IV 03:13: Isolyte S rm PH 7.4) Immunizations Ordered Immunization Filled Immunization Date Status Commen ts Source Name Name influenza virus 2016-04-15 Completed [facility] vaccine, inactivated 18:29:00 Herm flower Vital Signs Vital Name Observation Time Observation Value Comments Source Systolic blood 2021-02-07 14:39:00 130 mm[Hg] Univer sity of pressure [facility] Diastolic blood 2021-02-07 14:39:00 87 mm[Hg] [facility] Heart rate 2021-02-07 14:39:00 73 /min [facility] Body temperature 2021-02-07 14:39:[address] [facility] Respiratory rate 2021-02-07 14:39:00 18 /min [facility] Body weight 2021-02-07 14:39:00 68.04 kg [facility] BMI 2021-02-07 14:39:00 24.21 kg/m2 [facility] Oxygen saturation in 2021-02-07 14:39:00 100 /min [facility] Arterial blood by [facility] Pulse oximetry Branch Systolic (mm Hg) 2016-11-25 19:00:00 Barrett rial Anand Diastolic (mm Hg) 2016-11-25 19:00:00 Mem orial [place] Temperature Oral (F) 2016-11-25 19:00:00 98.2 F [facility] [place] Respitory Rate 2016-11-25 19:00:00 Memori al [place] Weight 2016-11-25 17:20:00 [facility] [place] Height 2016-11-25 17:20:00 167.64 cm [facility] [place] BMI Calculated 2016-11-25 17:20:00 Memori al [place] Systolic (mm Hg) 2016-11-25 17:20:00 Barrett rial [place] Diastolic (mm Hg) 2016-11-25 17:20:00 Mem orial [place] Respitory Rate 2016-11-25 17:20:00 Memori al Anand Heart Rate 2016-11-25 17:20:00 [facility] [place] Temperature Oral (F) 2016-11-25 17:20:00 98.0 F [facility] Anand Respitory Rate 2016-04-17 18:59:00 Memori al Anand Systolic (mm Hg) 2016-04-17 18:59:00 Barrett rial [place] Diastolic (mm Hg) 2016-04-17 18:59:00 Mem orial [place] Heart Rate 2016-04-17 18:59:00 [facility] [place] Temperature Oral (F) 2016-04-17 18:59:00 98.7 F Memorial Anand Heart Rate 2016-04-17 15:03:00 [facility] [place] Respitory Rate 2016-04-17 15:03:00 Memori al [place] Systolic (mm Hg) 2016-04-17 15:03:00 Barrett rial Anand Diastolic (mm Hg) 2016-04-17 15:03:00 Mem orial [place] Temperature Oral (F) 2016-04-17 15:03:00 99.3 F [facility] 2016-04-17 09:21:00 [facility] Temperature Oral (F) 2016-04-17 09:21:00 98.4 F [facility] Anand Respitory Rate 2016-04-17 09:21:00 Vianney hoover Anand Systolic (mm Hg) 2016-04-17 09:21:00 Barrett parker Anand Diastolic (mm Hg) 2016-04-17 09:21:00 Mem orial [place] Height 2016-04-14 07:11:00 167.64 cm [facility] BMI Calculated 2016-04-14 02:58:00 Memori al [place] Height 2016-04-14 02:58:00 167.64 cm [facility] Weight 2016-04-14 02:58:00 [facility] Procedures Procedure Date / Time Performing Clinician Source Performed LIPASE 2021-02-07 15:06:00 Yudelka Qureshi [facility] COMP. METABOLIC PANEL 2021-02-07 15:06:00 Yudelka Qureshi [facility] ([id number]) [facility] CBC WITH DIFF 2021-02-07 15:06:00 Yudelka Qureshi [facility] URINALYSIS 2021-02-07 15:06:00 Titus Yudelka [facility] URINE DRUG (IMMUNOASSAY) 2021-02-07 15:06:00 Yudelka Qureshi [facility] DRUG [facility] SCREEN W/O REFLEX CONSENT/REFUSAL FOR 2021-02-07 14:32:31 Doctor Unassigned, No Un [facility] DIAGNOSIS AND TREATMENT Name [facility] Knee joint operation [facility] rmann Encounters Start End Encounter Admission Attending Care Care Encounter Source Date/Time Date/Time Type Type Clinicians Facility Department ID 2021-02-07 2021-02-07 Emergency X LILLI QURESHI ERT [id number] Univers 08:40:00 11:07:00 YUDELKA [facility] 2021-02-07 2021-02-07 Emergency DHAVAL Qureshi [id number] Univers 08:40:00 11:07:00 Yudelka CAMPO [id number] i ty [facility] [id number] [facility] [id number] [address] 2020-08-23 2020-08-23 Emergency EM COLE Kim [id number] [facility] 12:59:00 15:30:00 Mitchell Joseph [facility] 2020-02-10 2020-02-10 Emergency [facility] [id number] 16:19:00 16:39:00 Van Campo [id number] Valerie 4.2.7.2.686 [place] [id number] 2020-02-10 2020-02-10 Emergency [facility] ERT [id number] Univers 16:19:00 16:19:00 VAN joe [facility] 2020-02-10 2020-02-10 Orders Doctor LESLIE [id number] 00:00:00 00:00:00 Only Unassigned, KEYSHA [id number] [place] [facility] 4.2.7.2.686 [id number] 2018-10-26 2018-10-26 [facility] [id number] 13:26:56 23:59:00 Encounter , Isabel [id number] Jason Padilla [id number] [facility] [id number] 2016-11-25 2016-11-25 Emergency [facility] [id number] Memoria 17:16:00 19:14:00 r Anand 01 [facility] 2016-11-25 2016-11-25 Outpatient Nimisha [facility] [id number] 12:16:00 14:14:00 Octavio Mcnair 2016-04-14 2016-04-18 Inpatient [facility] [id number] Memoria 02:57:00 00:30:00 r Anand 00 l [facility] 2016-04-13 2016-04-17 Outpatient Jin [facility] [id number] 20:57:00 18:30:00 Waqas Blount Results Test Description Test Time Test Comments Results Result Comments Source COMP. METABOLIC PANEL (25948) 2021-02-07 15:38:42 Test Item Value Reference Range Interpretation Comme nts NA (test code = 2382659966) 137 mmol/L 135-145 K (test code = 0111798016) 4.2 mmol/L 3.5-5.0 CL (test code = 7050396560) 103 mmol/L 98-108 CO2 TOTAL (test code = 5877662592) 26 mmol/L 23-31 AGAP (test code = 4948754635) 2-16 BUN (test code = 6683741626) 13 mg/dL 7-23 GLUCOSE (test code = 4148691441) 112 mg/dL 70-110 H CREATININE (test code = 0.90 mg/dL 0.60-1.25 1678052614) TOTAL BILI (test code = 0.5 mg/dL 0.1-1.7 8907782577) CALCIUM (test code = 1468300580) 9.5 mg/dL 8.6-10.6 T PROTEIN (test code = 5373256504) 7.7 g/dL 6.3-8.2 ALBUMIN (test code = 9531410295) 4.5 g/dL 3.5-5.0 ALK PHOS (test code = 1262082380) 61 U/L 34-122 ALTv (test code = 1742-6) 21 U/L 5-50 AST(SGOT) (test code = 9371406893) 25 U/L 13-40 eGFR (test code = 5150778426) mL/min/1.73m2 DIEGO (test code = DIEGO) Association [...] tests). Lab Interpretation (test code = Abnormal 25888-3) [facility] 15[facility]38[facility]02 Test Item Value Reference Range Interpretation Comments LIPASE (test code = 0593299923) 63 U/L 0-220 Lab Interpretation (test code = Normal 76753-1) [facility] WITH [id number] 15:25:40 Test Item Value Reference Range Interpretation Comments WBC (test code = See_Comment [Automated 9190-2) message] The sy stem which generated this result transmitted reference range : 4.20 - 10.70 10*3/?L. The reference range was not used to interpret this result as normal/abnormal . RBC (test code = See_Comment [Automated 369-8) message] The sy stem which generated this [...] RDW-SD (test code = 42.7 fL 38.5-51.6 24218-1) RDW-CV (test code = 12.4 % 12.1-15.4 788-0) PLT (test code = See_Comment [Automated 777-3) message] The sy stem which generated this result transmitted reference range : 150 - 328 10*3/ ?L. The reference r sara was not used to interpret this result as normal/abnormal . MPV (test code = 9.5 fL 9.8-13.0 L 68525-2) NRBC/100 WBC (test See_Comment [Automat ed code = 3941433792) message] The system which generated this result transmitted reference range : 0.0 - 10.0 /100 WBCs. The refer ence range was not u sed to interpret th is result as normal/abnormal . NRBC x10^3 (test code <0.01 See_Comment [Auto mated = 3177029568) message] The s ystem which generated this result transmitted reference range : 10*3/?L. The reference range was not used to interpret this result as normal/abnormal . GRAN MAT (NEUT) % 68.7 % (test code = 770-8) IMM GRAN % (test code 0.40 % = 9316545074) LYMPH % (test code = 21.6 % 736-9) MONO % (test code = 6.8 % 5905-5) EOS % (test code = 1.6 % 713-8) BASO % (test code = 0.9 % 706-2) GRAN MAT x10^3(ANC) 5.25 10*3/uL 1.99-6.95 (test code = 1007405999) IMM GRAN x10^3 (test 0.03 10*3/uL 0.00-0.06 code = 4215110216) LYMPH x10^3 (test code 1.65 10*3/uL 1.09-3.23 = 731-0) MONO x10^3 (test code 0.52 10*3/uL 0.36-1.02 = 742-7) EOS x10^3 (test code = 0.12 10*3/uL 0.06-0.53 711-2) BASO x10^3 (test code 0.07 10*3/uL 0.01-0.09 = 704-7) Lab Interpretation Abnormal (test code = 69987-4) [facility] [id number] 13:51:00 Test Item Value Reference Range Interpretation [...] newinformation regarding the potential i nterference ofEltrombopag ( a bone marrow stimulan t used to treatthrombocyt onmenia and aplastic anemia ) with specific assays on the Vitros 5600 of which Total Protein is one of thoseassays per formed in our lab.Interfe rence testing perform ed at [facility] determined that Eltrombopag does interfere with Vitros Total Protein asfollowsEltrom bopag Interference fo r Vitros Product Total Protein:======= Eltrombopag Max Observed Av g. BiasConcentrati on Concentration Concentration== ==== 2.5 mg/dl 6.0 g/dl +0.41 +0.34 3.5 mg/dl 6.0 g /dl +0.50 +0.45 5 mg/dl 6 .0 g/dl +0.73 +0.65 2.5 mg/dl 8.0 g/dl +0.44 +0.4 1 3.5 mg/dl 8.0 g/dl +0.55 +0.52 5 mg/dl 8.0 g/dl +0.86 +0.77 ALBUMIN (test 5.4 G/DL 3.5-5.0 H code = ALB) CALCIUM (test 11.2 MG/DL 8.4-10.2 H code = CA) BILIRUBIN TOTAL 1.2 MG/DL 0.2-1.3 N Eltrombopag Interference (test code = for Vitros Prod uct TBil, BILT) BuBc: Assa y Eltrombopag Stormy lyte/ Max Observed Avg. B ias Concentration C oncentration Concentration== ====TBil 7mg/dl TBil/ 1. 2mg/dl +0.23mg.dl +0.2 0mg/dlBuBc 3.5mg/dl Bu/0.8 mg/dl +0.25mg/dl +0.2 4mg/dlBuBc 7 mg/dl Bu/14.2m g/dl +0.38mg/dl +0.2 5mg/dlBuBc 5mg/dl Bc/0mg/d l +0.25mg/dl +0.15mg/dlBuBc 3.5mg/dl Bc/2.8mg/dl +0. 25mg/dl +0.23mg/dl SGOT/AST (test 50 UNITS/L 17-59 N code = AST) SGPT/ALT (test 31 UNITS/L <50 code = ALT) ALKALINE 88 UNITS/L 38-126 N PHOSPHATASE (test code = ALKP) CREATINE KINASE (CK)2020-08-23 13:51:00 Test Item Value Reference Range Interpretation Comments CREATINE KINASE (CK) (test code = 527 UNITS/L 55-170 H CK) CBC W/AUTO [id number] 13:40:00 Test Item Value Reference Range Interpretation [...] (test code = 0.00 K/mm3 0.0-0.1 N NRBC#) CARDIAC [id number] 09:44:00 Test Item Value Reference Range Interpretation Comments Total CK (test code = Total CK) 1035 [facility]wayKipdtyaYLNVGPRHS5313-29-01 09:44:00 Test Item Value Reference Range Interpretation Comments Myoglobin (test code = Myoglobin) 45 [facility] TDILQGM7898-38-26 10:58:00 Test Item Value Reference Range Interpretation Comments Total CK (test code = Total CK) 1278 [facility] LakewayUnarhpkXYGGYUWIZ1583-36-39 10:58:00 Test Item Value Reference Range Interpretation Comments Myoglobin (test code = Myoglobin) 22 [facility] QWHOEAJ8558-80-11 14:37:00 Test Item Value Reference Range Interpretation Comments Total CK (test code = Total CK) 1300 [facility] LakewayToivkpuNYXCNQBZH8302-65-64 14:37:00 Test Item Value Reference Range Interpretation Comments Myoglobin (test code = Myoglobin) 196 [facility]ATDOUAESH8802-74-61 06:25:00 Test Item Value Reference Range Interpretation Comments Lymphocytes (test code = Lymphocytes) 9.4 20.0-40.0 [facility] HospitalTikdannBJIPXKEMRG8386-81-03 06:25:00 Test Item Value Reference Range Interpretation Comments Monocytes # (test code 0.4 See_Comment [Aut omated message] The = Monocytes #) system which generated this result tra nsmitted reference range : <=0.8. The reference r sara was not used to int erpret this result as normal/abnormal . [facility]leDnhpxubLHYJKPRYNY6416-24-86 06:25:00 Test Item Value Reference Range Interpretation Comments RDW (test code = RDW) 13.3 11.5-14.5 [facility] HospitalDdtdmuqBYECIDCXEY0744-17-76 06:25:00 Test Item Value Reference Range Interpretation Comments Platelet (test code = Platelet) 163 133-450 [facility] AzleDjisrmgWLWMJQFUYV6904-65-12 06:25:00 Test Item Value Reference Range Interpretation Comments MPV (test code = MPV) 8.4 7.4-10.4 [facility] AzleSslejrxODFIGZWLUJ8289-55-20 06:25:00 Test Item Value Reference Range Interpretation Comments RBC (test code = RBC) 3.73 4.70-6.10 [facility] AzleEkcuwjpYOWKVEVMFK2952-18-70 06:25:00 Test Item Value Reference Range Interpretation Comments WBC (test code = WBC) 8.8 3.7-10.4 [facility] AzleCwkbjqyDVJFSGQMLB2353-97-70 06:25:00 Test Item Value Reference Range Interpretation Comments Hgb (test code = Hgb) 12.1 14.0-18.0 [facility] AzleCksxgecMVPCCGNOFC4170-01-10 06:25:00 Test Item Value Reference Range Interpretation Comments Hct (test code = Hct) 34.1 42.0-54.0 [facility] AzleFlcnpqvSHSMDZFBVN7414-50-94 06:25:00 Test Item Value Reference Range Interpretation Comments MCHC (test code = MCHC) 35.6 32.0-36.0 [facility] AzleWzlnbfuJDTZKJGYAP6184-07-02 06:25:00 Test Item Value Reference Range Interpretation Comments MCV (test code = MCV) 91.4 80.0-94.0 [facility] AzleBairoiyVQQEHWGJHT8245-43-98 06:25:00 Test Item Value Reference Range Interpretation Comments MCH (test code = MCH) 32.5 pg 27.0-31.0 [facility]2017-02-14 06:25:00 Test Item Value Reference Range Interpretation Comments Phosphorus (test code = Phosphorus) 2.7 2.5-4.5 [facility]2017-02-14 06:25:00 Test Item Value Reference Range Interpretation Comments Magnesium Lvl (test code = Magnesium 2.3 1.8-2.4 Lvl) [facility]QfqywgzXBTDXMHXCWML7398-68-53 06:25:00 Test Item Value Reference Range Interpretation Comments AGAP (test code = AGAP) 12.7 10.0-20.0 [facility] HospitalOxruoxsELJNUDAFUKYB9694-00-85 06:25:00 Test Item Value Reference Range Interpretation Comments eGFR (test code = eGFR) 118 [facility] HospitalAumlkvfPTFFJFMWYOMP0136-00-95 06:25:00 Test Item Value Reference Range Interpretation Comments Calcium Lvl (test code = Calcium Lvl) 8.3 8.5-10.5 [facility] HospitalOqpiqowDJFAVDVZSQJJ0646-89-83 06:25:00 Test Item Value Reference Range Interpretation Comments CO2 (test code = CO2) 30 24-32 [facility] HospitalVllvpsqQHSWLXRRNOFY9227-12-16 06:25:00 Test Item Value Reference Range Interpretation Comments Sodium Lvl (test code = Sodium Lvl) 139 135-145 [facility] HospitalHsunnlzUQOCXHWWPWSW1359-25-01 06:25:00 Test Item Value Reference Range Interpretation Comments Creatinine Lvl (test code = Creatinine 0.88 0.50-1.40 Lvl) [facility] HospitalTzysuisOFRZVLKCSHZQ8650-71-73 06:25:00 Test Item Value Reference Range Interpretation Comments BUN (test code = BUN) 8 7-22 [facility] HospitalNvblcmvQCATSAEQAVBU2188-78-19 06:25:00 Test Item Value Reference Range Interpretation Comments Chloride Lvl (test code = Chloride Lvl) 100 95-109 [facility] HospitalStyghubYQVDSMZPWOZE5563-57-36 06:25:00 Test Item Value Reference Range Interpretation Comments Potassium Lvl (test code = Potassium 3.7 3.5-5.1 Lvl) [facility] HospitalXruheolAEJAHLJPQJVH8397-71-74 06:25:00 Test Item Value Reference Range Interpretation Comments Glucose Lvl (test code = Glucose Lvl) 106 70-99 [facility] AzleUnxwufyJOGVMYTVYH7589-25-41 06:25:00 Test Item Value Reference Range Interpretation Comments Segs (test code = Segs) 84.8 45.0-75.0 [facility] AzleDgekblrEWUOASIOSK6256-84-72 06:25:00 Test Item Value Reference Range Interpretation Comments Eosinophils (test code = 1.0 See_Comment [A utomated message] The Eosinophils) system which ge nerated this result tra nsmitted reference range : <=4.0. The reference r sara was not used to int erpret this result as normal/abnormal . [facility] AzleFutmzfjXVVVEDWJZR7551-50-26 06:25:00 Test Item Value Reference Range Interpretation Comments Basophils (test code = 0.4 See_Comment [Aut omated message] The Basophils) system which ge nerated this result tra nsmitted reference range : <=1.0. The reference r sara was not used to int erpret this result as normal/abnormal . [facility][id number] 06:25:00 Test Item Value Reference Range Interpretation Comments Segs-Bands # (test code = Segs-Bands #) 7.4 1.5-8.1 [facility]leZ[id number] 06:25:00 Test Item Value Reference Range Interpretation Comments Lymphocytes # (test code = Lymphocytes 0.8 1.0-5.5 #) [facility]leKpnggvtXUNKMDMHFY8292-72-89 06:25:00 Test Item Value Reference Range Interpretation Comments Eosinophils # (test code 0.1 See_Comment [A utomated message] The = Eosinophils #) system whic h generated this result tra nsmitted reference range : <=0.5. The reference r sara was not used to int erpret this result as normal/abnormal . [facility][id number] 06:25:00 Test Item Value Reference Range Interpretation Comments Monocytes (test code = Monocytes) 4.4 2.0-12.0 [facility]EDSSAS6265-90-53 04:17:00 Test Item Value Reference Range Interpretation Comments U Myoglobin (test code no gt See_Comment [Aut omated message] The = U Myoglobin) system which generated this result tra nsmitted reference range : <=30. The reference r sara was not used to int erpret this result as normal/abnormal . [facility]leOjppumqTZLTNMXQUN6964-79-01 06:49:00 Test Item Value Reference Range Interpretation Comments Hgb (test code = Hgb) 14.8 14.0-18.0 [facility]leLdukjxtEFAZIWZTMV1317-01-61 06:49:00 Test Item Value Reference Range Interpretation Comments RBC (test code = RBC) 4.66 4.70-6.10 [facility] AzleSvwsymrOMWZYISFCC7994-32-24 06:49:00 Test Item Value Reference Range Interpretation Comments WBC (test code = WBC) 12.5 3.7-10.4 [facility] AzleCvcjiabCBWXGZEUUN5022-76-98 06:49:00 Test Item Value Reference Range Interpretation Comments Basophils # (test code 0.1 See_Comment [Aut omated message] The = Basophils #) system which generated this result tra nsmitted reference range : <=0.2. The reference r sara was not used to int erpret this result as normal/abnormal . [facility]leGwejnbdAHJZYRQOKD5741-54-31 06:49:00 Test Item Value Reference Range Interpretation Comments Monocytes # (test code 0.9 See_Comment [Aut omated message] The = Monocytes #) system which generated this result tra nsmitted reference range : <=0.8. The reference r sara was not used to int erpret this result as normal/abnormal . [facility]leNdwvqajHBTDIIMQOK3543-68-86 06:49:00 Test Item Value Reference Range Interpretation Comments Lymphocytes # (test code = Lymphocytes 1.0 1.0-5.5 #) [facility]leVxbqiqiDZUYEHEQZZ3414-00-70 06:49:00 Test Item Value Reference Range Interpretation Comments Segs-Bands # (test code = Segs-Bands #) 10.5 1.5-8.1 [facility] AzleWundxkfVFBFACLGVP5269-48-69 06:49:00 Test Item Value Reference Range Interpretation Comments Lymphocytes (test code = Lymphocytes) 8.2 20.0-40.0 [facility] AzlePvfxxhuAWVHZEQMXG1093-23-46 06:49:00 Test Item Value Reference Range Interpretation Comments Basophils (test code = 0.5 See_Comment [Aut omated message] The Basophils) system which ge nerated this result tra nsmitted reference range : <=1.0. The reference r sara was not used to int erpret this result as normal/abnormal . [facility] AzleJgqmmprGVRIABFNAD6031-88-76 06:49:00 Test Item Value Reference Range Interpretation Comments Monocytes (test code = Monocytes) 7.4 2.0-12.0 [facility] AzleEmnqzkaBLWQOKVKYL4415-35-30 06:49:00 Test Item Value Reference Range Interpretation Comments Segs (test code = Segs) 83.9 45.0-75.0 [facility]2017-02-13 06:49:00 Test Item Value Reference Range Interpretation Comments eGFR (test code = eGFR) 97 [facility]2017-02-13 06:49:00 Test Item Value Reference Range Interpretation Comments Calcium Lvl (test code = Calcium Lvl) 9.1 8.5-10.5 [facility]2017-02-13 06:49:00 Test Item Value Reference Range Interpretation Comments Chloride Lvl (test code = Chloride Lvl) 99 95-109 [facility]2017-02-13 06:49:00 Test Item Value Reference Range Interpretation Comments CO2 (test code = CO2) 24 24-32 [facility]2017-02-13 06:49:00 Test Item Value Reference Range Interpretation Comments BUN (test code = BUN) 9 7-22 [facility]2017-02-13 06:49:00 Test Item Value Reference Range Interpretation Comments Glucose Lvl (test code = Glucose Lvl) 85 70-99 [facility]2017-02-13 06:49:00 Test Item Value Reference Range Interpretation Comments Creatinine Lvl (test code = Creatinine 1.05 0.50-1.40 Lvl) [facility]2017-02-13 06:49:00 Test Item Value Reference Range Interpretation Comments Potassium Lvl (test code = Potassium 3.9 3.5-5.1 Lvl) [facility]2017-02-13 06:49:00 Test Item Value Reference Range Interpretation Comments Sodium Lvl (test code = Sodium Lvl) 136 135-145 [facility]2017-02-13 06:49:00 Test Item Value Reference Range Interpretation Comments AGAP (test code = AGAP) 16.9 10.0-20.0 [facility] AzleVvngreiVVUBQQYHYN2082-80-64 06:49:00 Test Item Value Reference Range Interpretation Comments RDW (test code = RDW) 13.5 11.5-14.5 [facility] AzleHxupkqnBTXGHUXTEH5572-24-63 06:49:00 Test Item Value Reference Range Interpretation Comments MCHC (test code = MCHC) 34.5 32.0-36.0 [facility] AzleWeiehcdAOHPVYIORK0186-84-29 06:49:00 Test Item Value Reference Range Interpretation Comments MPV (test code = MPV) 8.2 7.4-10.4 [facility] AzleJurlfcjORKOXRKNLN1852-91-65 06:49:00 Test Item Value Reference Range Interpretation Comments Platelet (test code = Platelet) 223 133-450 [facility] AzleBjbozpsJIIRYQWMEL9627-51-78 06:49:00 Test Item Value Reference Range Interpretation Comments MCH (test code = MCH) 31.7 pg 27.0-31.0 [facility] AzleMvsosxhPOTRMFILEX2830-16-90 06:49:00 Test Item Value Reference Range Interpretation Comments MCV (test code = MCV) 92.0 80.0-94.0 [facility] HospitalImrwnwmFTZTFZIMGZ9128-17-09 06:49:00 Test Item Value Reference Range Interpretation Comments Hct (test code = Hct) 42.9 42.0-54.0 [facility] [id number] 03:41:00 Test Item Value Reference Range Interpretation Comments Antibody Scrn (test Negative (04/13/16 9:41 code = Antibody Scrn) PM) [facility] [employer] [facility] [id number] 03:41:00 Test Item Value Reference Range Interpretation Comments ABO/Rh (test code = ABO/Rh) O POS [facility] [employer] [id number] 03:40:00 Test Item Value Reference Range Interpretation Comments Lactic Acid Lvl (test code = Lactic 1.7 0.5-2.2 Acid Lvl) [facility] [employer] [id number] 03:40:00 Test Item Value Reference Range Interpretation Comments eGFR (test code = eGFR) 108 [facility] [employer] [id number] 03:40:00 Test Item Value Reference Range Interpretation Comments Calcium Lvl (test code = Calcium Lvl) 9.1 8.5-10.5 [facility] [employer] [id number] 03:40:00 Test Item Value Reference Range Interpretation Comments Chloride Lvl (test code = Chloride Lvl) 101 95-109 [facility] [employer] [id number] 03:40:00 Test Item Value Reference Range Interpretation Comments CO2 (test code = CO2) 24 24-32 [facility] [employer] [id number] 03:40:00 Test Item Value Reference Range Interpretation Comments Sodium Lvl (test code = Sodium Lvl) 137 135-145 [facility] [employer] [id number] 03:40:00 Test Item Value Reference Range Interpretation Comments Creatinine Lvl (test code = Creatinine 0.96 0.50-1.40 Lvl) [facility] [employer] [id number] 03:40:00 Test Item Value Reference Range Interpretation Comments BUN (test code = BUN) 7 7-22 [facility] [id number] 03:40:00 Test Item Value Reference Range Interpretation Comments Potassium Lvl (test code = Potassium 3.4 3.5-5.1 Lvl) [facility] [employer] [id number] 03:40:00 Test Item Value Reference Range Interpretation Comments Glucose Lvl (test code = Glucose Lvl) 105 70-99 [facility] [id number] 03:40:00 Test Item Value Reference Range Interpretation Comments AGAP (test code = AGAP) 15.4 10.0-20.0 [facility] AzleUfqoihtKTHPKRKKIP8482-48-26 03:40:00 Test Item Value Reference Range Interpretation Comments Hgb (test code = Hgb) 15.4 14.0-18.0 [facility] AzleJpmncprFXHVWYIBPV3068-14-37 03:40:00 Test Item Value Reference Range Interpretation Comments Hct (test code = Hct) 44.3 42.0-54.0 [facility] AzleMxwaonnRPVDPQHRZN7148-79-87 03:40:00 Test Item Value Reference Range Interpretation Comments MCV (test code = MCV) 92.1 80.0-94.0 [facility] AzleBdngtdeHJBQIRKAAQ0477-70-95 03:40:00 Test Item Value Reference Range Interpretation Comments MCH (test code = MCH) 32.1 pg 27.0-31.0 [facility] AzleNuzwswhEZHZIKSWDO7601-14-18 03:40:00 Test Item Value Reference Range Interpretation Comments RDW (test code = RDW) 13.6 11.5-14.5 [facility] AzleBffudrdWYLJVWKDNQ8859-23-31 03:40:00 Test Item Value Reference Range Interpretation Comments Platelet (test code = Platelet) 247 133-450 [facility] AzleIqpkoeqPPEJYXHGRX9794-00-16 03:40:00 Test Item Value Reference Range Interpretation Comments MCHC (test code = MCHC) 34.9 32.0-36.0 [facility] AzleUsjvjxhUFKMVDFATU6720-03-43 03:40:00 Test Item Value Reference Range Interpretation Comments WBC (test code = WBC) 17.6 3.7-10.4 [facility] AzleAvklgtxBFSROPNVBC3000-73-56 03:40:00 Test Item Value Reference Range Interpretation Comments RBC (test code = RBC) 4.81 4.70-6.10 [facility] AzleYqqzaiuZLAWQRPMDS3495-28-99 03:40:00 Test Item Value Reference Range Interpretation Comments MPV (test code = MPV) 7.5 7.4-10.4 [facility] AzleYvgpvieUEEDVRGWLX9023-51-23 03:40:00 Test Item Value Reference Range Interpretation Comments Estimated % Lysis Rapid 3.7 See_Comment [Au tomated message] The (test code = Estimated syste m which generated % Lysis Rapid) this result t ransmitted reference range : <=7.5. The reference r sara was not used to int erpret this result as normal/abnormal . [facility] Az[id number] 03:40:00 Test Item Value Reference Range Interpretation Comments G-value Rapid (test code = G-value 8.4 5.0-11.6 Rapid) [facility] AzleE[id number] 03:40:00 Test Item Value Reference Range Interpretation Comments Angle Rapid (test code = Angle 76 degrees 64-80 Rapid) [facility] [id number] 03:40:00 Test Item Value Reference Range Interpretation Comments Max Amplitude Rapid (test code = Max 63 mm 52-71 Amplitude Rapid) [facility] AzleK[id number] 03:40:00 Test Item Value Reference Range Interpretation Comments R-time Rapid (test code = R-time 0.7 min 0.4-0.7 Rapid) [facility] AzleCistfkjCJTUVVROMY8230-68-92 03:40:00 Test Item Value Reference Range Interpretation Comments Split Point Rapid (test code = Split 0.6 min Point Rapid) [facility] AzleSwgsplqGMDKWGALVT2200-61-21 03:40:00 Test Item Value Reference Range Interpretation Comments K-time Rapid (test code = K-time 1.2 min 0.6-2.3 Rapid) [facility] AzleIgrtdgvAKCCBNTYAC8540-51-13 03:40:00 Test Item Value Reference Range Interpretation Comments ACT (TEG) Rapid (test code = ACT (TEG) 113 s 86-118 Rapid) [facility] Az[id number] 03:40:00 Test Item Value Reference Range Interpretation Comments Monocytes (test code = Monocytes) 5.5 2.0-12.0 [facility] AzleBsbpezyIFCPMSKRVG2390-83-94 03:40:00 Test Item Value Reference Range Interpretation Comments Basophils (test code = 0.3 See_Comment [Aut omated message] The Basophils) system which ge nerated this result tra nsmitted reference range : <=1.0. The reference r sara was not used to int erpret this result as normal/abnormal . [facility] AzleXyzgxwcLQHSSCFFGN7410-70-96 03:40:00 Test Item Value Reference Range Interpretation Comments Segs (test code = Segs) 86.4 45.0-75.0 [facility] AzleRercmuuHSWXSVBKLM7090-90-20 03:40:00 Test Item Value Reference Range Interpretation Comments Lymphocytes (test code = Lymphocytes) 7.8 20.0-40.0 [facility] AzleHjjilzkSTNTYSTMCS4463-15-70 03:40:00 Test Item Value Reference Range Interpretation Comments Monocytes # (test code 1.0 See_Comment [Aut omated message] The = Monocytes #) system which generated this result tra nsmitted reference range : <=0.8. The reference r sara was not used to int erpret this result as normal/abnormal . [facility] AzlePqkfqozMRZFOVQARS4258-57-15 03:40:00 Test Item Value Reference Range Interpretation Comments Segs-Bands # (test code = Segs-Bands #) 15.2 1.5-8.1 [facility] AzleIfkgqupLMWZGDIVHB5057-80-65 03:40:00 Test Item Value Reference Range Interpretation Comments Lymphocytes # (test code = Lymphocytes 1.4 1.0-5.5 #) [facility]
--- NOTE | 2021-11-25 13:26 | EDPHYS ---
Physician Documentation [facility] Name: Tad Gray Age: 31 yrs Sex: Male : 1990 Arrival Date: 11/25/2021 Time: 13:18 Bed 17 Private MD: ED Physician Larry Marin HPI: 11/25 13:57 This 31 yrs old Male presents to ER via EMS with complaints of Chest Pain. snw 13:57 Onset: The symptoms/episode began/occurred suddenly. Associated signs and symptoms: snw Pertinent positives: cough. Modifying factors: The patient symptoms are alleviated by nothing, the patient symptoms are aggravated by movement. The patient has not experienced similar symptoms in the past. It is unknown whether or not the patient has recently seen a physician. . Historical: - Allergies: 13:36 No Known Allergies; tp1 - Home Meds: 13:36 None [Active]; tp1 - PMHx: 13:36 Anxiety; tp1 - PSHx: 13:36 left leg surgery; tp1 - Immunization history:: Client reports having NOT received the Covid vaccine. - Social history:: Smoking status: Patient uses street drugs, marijuana. ROS: 13:56 Constitutional: Negative for fever, chills, and weight loss, Eyes: Negative for injury, snw pain, redness, and discharge, ENT: Negative for injury, pain, and discharge, Neck: Negative for injury, pain, and swelling, Respiratory: Negative for shortness of breath, cough, wheezing, and pleuritic chest pain, Abdomen/GI: Negative for abdominal pain, nausea, vomiting, diarrhea, and constipation, Back: Negative for injury and pain, : Negative for injury, bleeding, discharge, and swelling, MS/Extremity: Negative for injury and deformity, Skin: Negative for injury, rash, and discoloration, Neuro: Negative for headache, weakness, numbness, tingling, and seizure, Psych: Negative for depression, anxiety, suicide ideation, homicidal ideation, and hallucinations. 13:56 Cardiovascular: Positive for chest pain, with cough, with movement, of the chest. Exam: 13:50 Constitutional: This is a well developed, well nourished patient who is awake, alert, snw and in no acute distress. Head/Face: Normocephalic, atraumatic. Eyes: Pupils equal round and reactive to light, extra-ocular motions intact. Lids and lashes normal. Conjunctiva and sclera are non-icteric and not injected. Cornea within normal limits. Periorbital areas with no swelling, redness, or edema. ENT: Nares patent. No nasal discharge, no septal abnormalities noted. Tympanic membranes are normal and external auditory canals are clear. Oropharynx with no redness, swelling, or masses, exudates, or evidence of obstruction, uvula midline. Mucous membranes moist. Neck: Trachea midline, no thyromegaly or masses palpated, and no cervical lymphadenopathy. Supple, full range of motion without nuchal rigidity, or vertebral point tenderness. No Meningismus. Cardiovascular: Regular rate and rhythm with a normal S1 and S2. No gallops, murmurs, or rubs. Normal PMI, no JVD. No pulse deficits. Abdomen/GI: Soft, non-tender, with normal bowel sounds. No distension or tympany. No guarding or rebound. No evidence of tenderness throughout. Back: No spinal tenderness. No costovertebral tenderness. Full range of motion. Skin: Warm, dry with normal turgor. Normal color with no rashes, no lesions, and no evidence of cellulitis. MS/ Extremity: Pulses equal, no cyanosis. Neurovascular intact. Full, normal range of motion. Neuro: Awake and alert, GCS 15, oriented to person, place, time, and situation. Cranial nerves II-XII grossly intact. Motor strength 5/5 in all extremities. Sensory grossly intact. Cerebellar exam normal. Normal gait. Psych: Awake, alert, with orientation to person, place and time. Behavior, mood, and affect are within normal limits. 13:50 Chest/axilla: Inspection: normal, Palpation: tenderness, that is moderate, that totally reproduces the patient's complaints. Vital Signs: 13:12 BP 150 / 97; Pulse 72; Resp 16; Pulse Ox 100% on R/A; tp1 13:41 Weight 72.57 kg; Height 5 ft. 6 in. (167.64 cm); tp1 13:57 BP 127 / 95; Pulse 80; Resp 15; Temp 98.8; Pulse Ox 100% on R/A; tp1 13:41 Body Mass Index 25.82 (72.57 kg, 167.64 cm) tp1 MDM: 13:21 Patient medically screened. snw 13:55 Data reviewed: vital signs, nurses notes. Data interpreted: Pulse oximetry: on room air snw is 100 %. Interpretation: normal. Counseling: I had a detailed discussion with the patient and/or guardian regarding: the historical points, exam findings, and any diagnostic results supporting the discharge/admit diagnosis, the presence of at least one elevated blood pressure reading (>120/80) during this emergency department visit, the need for outpatient follow up, for definitive care. 11/25 13:25 Order name: EKG; Complete Time: 13:25 snw 11/25 13:25 Order name: EKG - Nurse/Tech; Complete Time: 13:41 snw EC:50 Rate is 63 beats/min. Rhythm is regular. QRS [place] is Normal. IN interval is normal. T snw waves are Peaked. Clinical impression: LVH. Administered Medications: 13:49 Drug: Aspirin 81 mg Route: PO; tp1 13:55 Follow up: Response: Medication administered at discharge. tp1 13:49 Drug: predniSONE 40 mg Route: PO; tp1 13:55 Follow up: Response: Medication administered at discharge. tp1 13:50 Drug: Pepcid (famotidine) 20 mg Route: PO; tp1 13:54 Follow up: Response: Medication administered at discharge. tp1 13:50 Drug: ZyrTEC - Cetirizine 10 mg Route: PO; tp1 13:54 Follow up: Response: Medication administered at discharge. tp1 Disposition: 11/26 08:34 Co-signature as Attending Physician, Larry Marin DO I was immediately available on-site ms3 in the Emergency Department for consultation in the care of the patient. . Chart complete. Disposition Summary: 11/25/21 13:26 Discharge Ordered Location: Home snw Condition: Stable snw Diagnosis - Costochondritis snw Followup: snw - With: Emergency Department - When: As needed - Reason: Worsening of condition Followup: snw - With: Private Physician - When: 2 - 3 days - Reason: Recheck today's complaints, Continuance of care, Re-evaluation by your physician Discharge Instructions: - Discharge Summary Sheet snw - Costochondritis snw - Steps to Quit Smoking snw - Smoking Tobacco Information, Adult snw Forms: - Medication Reconciliation Form snw - Thank You Letter snw - Antibiotic Education snw - Prescription Opioid Use snw Prescriptions: - Zyrtec 10 mg Oral Tablet - take 1 tablet by ORAL route once daily As needed; 20 tablet; Refills: 0, snw Product Selection Permitted - Prednisone 20 mg Oral Tablet - take 2 tablets by ORAL route once daily for 5 days; 10 tablet; Refills: 0, snw Product Selection Permitted - Pepcid 20 mg Oral Tablet - take 1 tablet by ORAL route once daily; 20 tablet; Refills: 0, Product snw Selection Permitted Signatures: Odalis Rhoades, [employer] ENGINEER-Csnw Larry Marin DO DO ms3 Hoa Vasquez, RN RN tp1
[2021-11-25] MEDS ORDERED: CETIRIZINE HCL 5 MG TABLET ONE (13:43)
[2021-11-25] MEDS ORDERED: ASPIRIN EC 81 MG TAB PO ONE (13:44)
[2021-11-25] MEDS ORDERED: FAMOTIDINE 20 MG TAB ONE (13:44)
[2021-11-25] MEDS ORDERED: predniSONE 20 MG TAB ONE (13:44)
--- NOTE | 2021-11-25 13:58 | ER ---
Nurse's Notes [facility] Name: Tad Gray Age: 31 yrs Sex: Male : 1990 Arrival Date: 11/25/2021 Time: 13:18 Bed 17 Private MD: Diagnosis: Costochondritis Presentation: 11/25 13:12 Chief complaint: EMS states: toned out for chest pain. Reported chest pain is in the tp1 center of chest and feels like pulsation and pressure. PT reported it does not feel like anxiety or acid reflux. 12 lead EKG performed on route was normal, BP 124/85. O2 98%, HR 104. Coronavirus screen: Vaccine status: Patient reports being unvaccinated. 13:12 Method Of Arrival: EMS: [facility] tp1 13:12 Ebola Screen: Patient negative for fever greater than or equal to 101.5 degrees tp1 Fahrenheit, and additional compatible Ebola Virus Disease symptoms Patient denies exposure to infectious person. Patient denies travel to an Ebola-affected area in the 21 days before illness onset. Initial Sepsis Screen: Does the patient meet any 2 criteria? No. Patient's initial sepsis screen is negative. Does the patient have a suspected source of infection? No. Patient's initial sepsis screen is negative. Risk Assessment: Do you want to hurt yourself or someone else? Patient reports no desire to harm self or others. Onset of symptoms was November 24, 2021. 13:12 Acuity: TYLER 3 tp1 Triage Assessment: 13:12 General: Appears in no apparent distress. uncomfortable, Behavior is calm, cooperative. tp1 Pain: Complains of pain in chest. Pain: Pain does not radiate. Pain currently is 9 out of 10 on a pain scale. Quality of pain is described as pressure, pulsating, Pain began 1 day ago. Is continuous. EENT: No signs and/or symptoms were reported regarding the EENT system. Neuro: Level of Consciousness is awake, alert, obeys commands, Oriented to person, place, time, situation. Cardiovascular: Patient's skin is warm and dry. Rhythm is sinus rhythm. Respiratory: Airway is patent Respiratory effort is even, unlabored, Respiratory pattern is regular. Respiratory: Reports pain with deep respirations. GI: Abdomen is flat, non-distended. GI: Patient currently denies nausea, vomiting. : No signs and/or symptoms were reported regarding the genitourinary system. Derm: Skin is pink, warm \T\ dry. Musculoskeletal: Circulation, motion, and sensation intact. Historical: - Allergies: 13:36 No Known Allergies; tp1 - Home Meds: 13:36 None [Active]; tp1 - PMHx: 13:36 Anxiety; tp1 - PSHx: 13:36 left leg surgery; tp1 - Immunization history:: Client reports having NOT received the Covid vaccine. - Social history:: Smoking status: Patient uses street drugs, marijuana. Screenin:40 Abuse screen: Denies threats or abuse. Denies injuries from another. Nutritional tp1 screening: No deficits noted. Tuberculosis screening: No symptoms or risk factors identified. Fall Risk None identified. Assessment: 13:12 General: see triage notes . tp1 Vital Signs: 13:12 BP 150 / 97; Pulse 72; Resp 16; Pulse Ox 100% on R/A; tp1 13:41 Weight 72.57 kg; Height 5 ft. 6 in. (167.64 cm); tp1 13:57 BP 127 / 95; Pulse 80; Resp 15; Temp 98.8; Pulse Ox 100% on R/A; tp1 13:41 Body Mass Index 25.82 (72.57 kg, 167.64 cm) tp1 ED Course: 13:12 Arm band placed on. tp1 13:12 Patient has correct armband on for positive identification. Bed in low position. Call tp1 light in reach. 13:12 Client placed on continuous cardiac and pulse oximetry monitoring. NIBP monitoring tp1 applied. 13:18 Patient arrived in ED. tp1 13:19 Odalis Rhoades FNP-C is PHCP. snw 13:20 Larry Marin DO is Attending Physician. snw 13:25 Hoa Vasquez, JAREN is Primary Nurse. tp1 13:30 EKG done, by ED staff. tp1 13:36 Triage completed. tp1 13:40 No provider procedures requiring assistance completed. Patient did not have IV access tp1 during this emergency room visit. Patient maintains SpO2 saturation greater than 95% on room air. Administered Medications: 13:49 Drug: Aspirin 81 mg Route: PO; tp1 13:55 Follow up: Response: Medication administered at discharge. tp1 13:49 Drug: predniSONE 40 mg Route: PO; tp1 13:55 Follow up: Response: Medication administered at discharge. tp1 13:50 Drug: Pepcid (famotidine) 20 mg Route: PO; tp1 13:54 Follow up: Response: Medication administered at discharge. tp1 13:50 Drug: ZyrTEC - Cetirizine 10 mg Route: PO; tp1 13:54 Follow up: Response: Medication administered at discharge. tp1 Medication: 13:41 VIS not applicable for this client. tp1 Outcome: 13:26 Discharge ordered by . benton 13:57 Discharged to home ambulatory. tp1 13:57 Condition: good 13:57 Discharge instructions given to patient, Instructed on discharge instructions, follow up and referral plans. medication usage, Demonstrated understanding of instructions, follow-up care, medications, Prescriptions given X 3. 13:58 Patient left the ED. tp1 Signatures: Odalis Rhoades, NETWORK DEVELOPER-C NETWORK DEVELOPER-Csnw Hoa Vasquez, RN RN tp1
--- NOTE | 2021-11-26 17:28 | EKG ---
Test Date: 2021-11-25 Test Time: 13:30:13 Belt Changer: TP MEASUREMENT RESULTS: Intervals: Rate: 63 MO: 114 QRSD: 92 QT: 374 QTc: 382 Elizabeth: P: 57 MO: 114 QRS: 89 T: 64 INTERPRETIVE STATEMENTS: Normal sinus rhythm Minimal voltage criteria for LVH, may be normal variant Early repolarization Borderline ECG Compared to ECG 04/13/2016 19:29:19 Left ventricular hypertrophy now present ST (T wave) deviation no longer present Electronically Signed On 11-26-21 17:26:48 CDT by Nabor Farah
[2021-11-27 21:04] VITALS: BP 127/95; TEMP 98.8; O2SAT 100
== END 2021-11-25 13:58 | disposition home or self-care (01) ==
LOC: ER 13:17
DX: M94.0 Chondrocostal junction syndrome [Tietze] (principal)
CPT/HCPCS: 93005; 99285; J7512

== ENCOUNTER 2022-04-25 15:43 | Emergency (ER) | payer SELFPAY ==
--- OUTSIDE RECORDS SUMMARY | 2022-04-25 16:27 | XMS REPORT | Continuity of Care Document ---
:1990 Author Organization [facility] t Address [address] [place] [address] Care Team Providers Name Role Phone PCP, PATIENT DOES NOT HAVE A Primary Care Physician UnavailYUDELKA Garcia Attending Clinician Unavailable Yudelka Qureshi MD Attending Clinician Mitchell Kim Attending Clinician Unavailable Van Preston Attending Clinician VAN SEWELL Attending Clinician Unavailable Doctor Unassigned, [place] Attending Clinician Unavailable Miguel Angel Mirza MD Attending Clinician [phone] Octavio Bansal Attending Clinician Waqas Abdi Attending Clinician Physician, No Primary or Family Admitting Clinician UnavailToby Hughes Admitting Clinician Payers Payer Name Policy Type Policy Number Effective Date Expiration Date S ja DARS DISABILITY [id number] 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 [employer] 00:00:00 Problems Condition Condition Condition Status Onset Resolution Last Treating Co mments Source Name Details Category Date Date Treatment Clinician Date LEG PAIN LEG PAIN Diagnosis Active 2016-11-25 Memoria Active 11-25 14:14:00 l 11/25/2016 00:00: Hayder THOMPSON [address] TIB TIB Diagnosis Active 2016-05-26 Mem oria FRACTURE FRACTURE 14:20:00 l Active 00:00: Anand 04/13/2016 00 [facility] TIB/FIB TIB/FIB Diagnosis Active 2016-04-13 Memoria FRACTURE FRACTURE - 21:35:00 l Active 00:00: Anand 04/13/2016 00 [facility] UNSP UNSP Diagnosis Active 2016-05-26 Mem oria FRACTURE FRACTURE 14:20:00 l OF SHAFT OF SHAFT Hayedr n OF UNSP OF UNSP TIBIA, IN TIBIA, IN Active [facility] History of Past Illness Condition Condition Condition Status Onset Resolution Last Treating Co mments Source Name Details Category Date Date Treatment Clinician Date Pain in Pain in Problem 2016-11-28 2016-11-28 Memoria left leg left leg 11-25 04:50:43 04:50:43 l 11/25/2016 05:00: Hayder rodney 00 7 [facility] Allergies, Adverse Reactions, Alerts Allergy Allergy Status Severity Reaction(s) Onset Inactive Treating Comm ents Source Name Type Date Date Clinician No Known DA Active [facility] 00:00: [address] No Known DA Active [facility] All[facility]ie [facility] 00:00: [address] NO KNOWN Drug Active Univers ALLERGIE Class ity of [facility] Social History Social Habit Start Date Stop Date Quantity Comments Source Exposure to Not sure [facility] SARS-CoV-2 (event) Medica Branch Sex Assigned At [birth year] [facility] 00:00:00 00:00:00 Medical Branch Smoking Status Start Date Stop Date Source Unknown if ever smoked [facility] Social History 2016-11-25 17:32:12 [facility] Medications Ordered Filled Start Stop Current Ordering Indication Dosage Frequency Signature Comments Components Source Medication Medication Date Date Medication? Clinician (SIG) Name Name maalox:diph 2020-03- No 15mL 15 mL, Uni vers enhydrAMINE 04-10 Oral, ity of :lidocaine 16:00: 15:07 ONCE, 1 Basim as 2 % viscous 00 :00 dose, On Medi sally 1:1:1 Alycia Branch ([facility] 02/07/21 at [facility] 1000, HERIBERTO oral suspension 15 mL metoclopram 2020-03 No 10mg 10 mg, Uni vers sangita HCl 04-10 Slow IV ity of (REGLAN) 16:00: 15:07 Push, [place] injection 00 :00 ONCE, 1 Medical 10 mg dose, On Branch [facility] 02/07/21 at 1000, HERIBERTO NaCl 0.9% 2020-03- [...] 7 day, # 20 tab, 0 Refill(s) Ondansetron Yes 4 mg = 1 Me moria 4 MG Oral 2-16 tab, PO, l Tablet 21:49: Q8H, PRN Garnett [Zofran] 00 Nausea/vom iting, X 7 day, [...] MG Oral 40 tab, 0 Tablet Refill(s) [Corydon 5/325] senna 8.6 Yes 17.2 mg = Mem oria mg oral 2-16 2 tab, PO, l tablet 21:07: Bedtime, Garnett 00 PRN as needed for constipati on, X 10 day, # 20 tab, 0 Refill(s) Aspirin 325 Yes 325 mg = 1 Memoria MG Enteric 2-16 tab, PO, l Coated 21:07: BID, # 42 Hayder n Tablet 00 tab, 0 Refill(s) Docusate Yes 100 mg [...] MG Oral 40 tab, 0 Tablet Refill(s) [Corydon 5/325] senna 8.6 Yes 17.2 mg = Mem oria mg oral 2-16 2 tab, PO, l tablet 21:07: Bedtime, Garnett 00 PRN as needed for constipati on, X 10 day, # 20 tab, 0 Refill(s) Aspirin 325 Yes 325 mg = 1 Memoria MG Enteric 2-16 tab, PO, l Coated 21:07: BID, # 42 Hayder n Tablet 00 tab, 0 Refill(s) POLYETHYLEN No Notes: Barrett bruce E GLYCOL 2-15 Dissolve l 3350 23:00: in 8 oz of Garnett 00 water or juice. (Same as: Miralax) POLYETHYLEN No Notes: Barrett bruce E GLYCOL 2-15 Dissolve l 3350 23:00: in 8 oz of Garnett 00 water or juice. (Same as: Miralax) magnesium No Notes: Memori a citrate 2-15 (Same as: l 58.2 MG/ML 16:16: Citrate of H ermann Oral 00 Magnesia) Solution Concentrat ion: 1.745 gm / 30 mL magnesium No Notes: Memori a citrate 2-15 (Same as: l 58.2 MG/ML 16:16: Citrate of H ermann Oral 00 Magnesia) Solution Concentrat ion: 1.745 gm / 30 mL Zofran No Notes: Memoria 2-15 (Same as: l 13:29: Zofran) Garnett 00 MEDICATION WASTE Product Size: 4 mg Product Wasted: ___ mg Zofran No Notes: Memoria 2-15 (Same as: l 13:29: Zofran) Garnett 00 MEDICATION WASTE Product Size: 4 mg Product Wasted: ___ mg sodium No 1,000 mL, Memori a chloride 2-14 Rate: 125 l 0.9% 1000 22:14: ml/hr, Hayder n ml INJ 00 Infuse 1,000 mL over: 8 hr, Route: IV, Dosing Weight 63.636 kg, Total Volume: 1,000, Start date: 04/15/16 16:14:00 DOOR TRIMMER, Duration: 30 day, Stop date: 05/15/16 16:13:00 CDT sodium No 1,000 mL, Memori a chloride 2-14 Rate: 125 l 0.9% 1000 22:14: ml/hr, Hayder n ml INJ 00 Infuse 1,000 mL over: 8 hr, Route: IV, Dosing Weight 63.636 kg, Total Volume: 1,000, Start date: 04/15/16 16:14:00 DOOR TRIMMER, Duration: 30 day, Stop date: 05/15/16 16:13:00 CDT influenza No Notes: Memori a virus 2-14 (Same as: l vaccine, 18:30: Fluzone Hayder n inactivated 00 Quadrivale nt, Fluarix Quadrivale nt) For 3 years of age and older (0.5 mL IM) Shake well before use influenza No Notes: Memori a virus 2-14 (Same as: l vaccine, 18:30: Fluzone Hayder n inactivated 00 Quadrivale nt, Fluarix Quadrivale nt) For 3 years of age and older (0.5 mL IM) Shake well before use Flomax No Notes: Memoria 2-14 (Same As: l 15:39: Flomax) Garnett 00 "Do Not Crush" Flomax No Notes: Memoria 2-14 (Same As: l 15:39: Flomax) Anand 00 "Do Not Crush" sennosides, No Notes: Barrett bruce JAIL 2-14 (Same as: l 03:00: Senokot) Anand 00 sennosides, No Notes: Barrett bruec JAIL 2-14 (Same as: l 03:00: Senokot) Anand Cefazolin No Notes: Memori a 2-14 (Same As: l 02:00: Ancef, Anand 00 Kefzol) MEDICATION WASTE Product Size: 1000 mg Product Wasted: ___ mg Cefazolin No Notes: Memori a 2-14 (Same As: l 02:00: Ancef, Anand 00 Kefzol) MEDICATION WASTE Product Size: 1000 mg Product Wasted: ___ mg Lovenox No Notes: Memoria 2-14 (Same as: l 00:30: Lovenox) Anand Lovenox No Notes: Memoria 2-14 (Same as: l 00:30: Lovenox) Anand 00 Ondansetron No Notes: Barrett bruce 2-13 (Same as: l 22:39: Zofran) Garnett 00 MEDICATION WASTE Product Size: 4 mg Product Wasted: ___ mg Naloxone No Notes: Memoria 2-13 Same as l 22:39: Narcan Flumazenil No Notes: Memor ia 2-13 (Same as: l 22:39: Romazicon) Oxycodone No Notes: Memori a 2-13 (Same as: l 22:39: Roxicodone ) Hydromorpho No Notes: Barrett bruce ne 2-13 Same as: l 22:39: Dilaudid Garnett 00 Ondansetron No Notes: Barrett bruce 2-13 (Same as: l 22:39: Zofran) Anand 00 MEDICATION WASTE Product Size: 4 mg Product Wasted: ___ mg Naloxone No Notes: Memoria 2-13 Same as l 22:39: Narcan Garnett 00 Flumazenil No Notes: Memor ia 2-13 (Same as: l 22:39: Romazicon) Oxycodone No Notes: Memori a 2-13 (Same as: l 22:39: Roxicodone 00 ) Hydromorpho No Notes: Barrett bruce ne 2-13 Same as: l 22:39: Dilaudid Garnett 00 Ancef No Notes: Memoria 2-13 Same as: l 17:00: Ancef Garnett 00 Ancef No Notes: Memoria 2-13 Same as: l 17:00: Ancef Anand influenza No Notes: Memori a virus 2-13 (Same as: l vaccine, 15:00: Fluzone Hayder n inactivated 00 Quadrivale nt, Fluarix Quadrivale nt) For 3 years of age and older (0.5 mL IM) Shake well before use Docusate No Notes: Memoria 2-13 (Same as: l 15:00: Colace) Garnett 00 (Do Not Crush) POLYETHYLEN No Notes: Barrett bruce E GLYCOL 2-13 Dissolve l 3350 15:00: in 8 oz of Anand 00 water or juice. (Same as: Miralax) celecoxib No Notes: Memori a 2-13 NSAID. l 15:00: Please Garnett 00 check indication . Not for seizure. (Same As: CeleBREX) influenza No Notes: Memori a virus 2-13 (Same as: l vaccine, 15:00: Fluzone Hayder n inactivated 00 Quadrivale nt, Fluarix Quadrivale nt) For 3 years of age and older (0.5 mL IM) Shake well before use Docusate No Notes: Memoria 2-13 (Same as: l 15:00: Colace) Garnett 00 (Do Not Crush) POLYETHYLEN No Notes: Barrett bruce E GLYCOL 2-13 Dissolve l 3350 15:00: in 8 oz of Garnett 00 water or juice. (Same as: Miralax) celecoxib No Notes: Memori a 2-13 NSAID. l 15:00: Please Anand 00 check indication . Not for seizure. (Same As: CeleBREX) Enoxaparin No Notes: Memor ia 2-13 (Same as: l 06:00: Lovenox) Garnett Enoxaparin No Notes: Memor ia 2-13 (Same as: l 06:00: Lovenox) Garnett 00 Ketorolac 20170 No 30 mg, Memori a 2-13 Route: l 05:04: IVP, ONCE, Garnett 00 Dosing Weight 63.636, kg, Priority: NOW, Start date: 04/13/16 23:04:00 DOOR TRIMMER, Duration: 1 doses or times, Stop date: 04/13/16 23:04:00 DOOR TRIMMER Acetaminoph No Notes: Max Memoria en 2-13 acetaminop l 05:04: hen 4000 Anand 00 mg/day (4 gm/day). (Same as: Tylenol Extra Strength) pregabalin No Notes: Memor ia 2-13 (Same as: l 05:04: Lyrica) Anand 00 Tramadol No Notes: Not Mem oria 2-13 to exceed l 05:04: 400mg/day. Anand 00 (Same As: Ultram) Oxycodone No Notes: Memori a Hydrochlori 2-13 (Same as: l de 5 MG 05:04: Roxicodone Herm flower Oral Tablet 00 ) Ketorolac 2017 No 30 mg, Memori a 2-13 Route: l 05:04: IVP, ONCE, Dosing Weight 63.636, kg, Priority: NOW, Start date: 04/13/16 23:04:00 DOOR TRIMMER, Duration: 1 doses or times, Stop date: 04/13/16 23:04:00 DOOR TRIMMER Acetaminoph No Notes: Max Memoria en 2-13 acetaminop l 05:04: hen 4000 Anand 00 mg/day (4 gm/day). (Same as: Tylenol Extra [...] Memoria 2-13 Same as l 04:46: Dilaudid Garnett 00 Dilaudid 2016-0 No Notes: Memoria 2-13 Same as l 04:46: Dilaudid Anand 00 iodixanol 2016-0 No 149 mL, Memor ia 213 Route: l 04:07: IVP, Drug Garnett 00 Form: SOLN, Dosing Weight 63.636, kg, ONCALL, STAT, Start date: 04/13/16 22:07:00 DOOR TRIMMER, Duration: 1 doses or times, Dose = 2.2ml/kg, Max dose = 150ml -- "To be infused by Radiology Staff ONLY" iodixanol 2016-0 No 149 mL, Memor ia 213 Route: l 04:07: IVP, Drug Garnett 00 Form: SOLN, Dosing Weight 63.636, kg, ONCALL, STAT, Start date: 04/13/16 22:07:00 DOOR TRIMMER, Duration: 1 doses or times, Dose = 2.2ml/kg, Max dose = 150ml -- "To be infused by Radiology Staff ONLY" Sodium 2016-0 No 1,000 mL, Memori a Chloride 2-13 1,000 l 0.154 03:41: ml/hr, Garnett MEQ/ML 00 Infuse Injectable Over: 1 Solution hr, Route: IV, ONCE, Priority: STAT, Dosing Weight 63.636 kg, Start date: 04/13/16 21:41:00 DOOR TRIMMER, Duration: 1 doses or times, Stop date: 04/13/16 21:41:00 DOOR TRIMMER Sodium 2017- No 1,000 mL, Memori a Chloride 2-13 1,000 l 0.154 03:41: ml/hr, Garnett MEQ/ML 00 Infuse Injectable Over: 1 Solution hr, Route: IV, ONCE, Priority: STAT, Dosing Weight 63.636 kg, Start date: 04/13/16 21:41:00 DOOR TRIMMER, Duration: 1 doses or times, Stop date: 04/13/16 21:41:00 DOOR TRIMMER Isolyte S No Notes: Memori a PH-7.4 2-13 (Same as: l (Bolus) IV 03:13: Isolyte S He rmann 00 PH 7.4) Isolyte S No Notes: Memori a PH-7.4 2-13 (Same as: l (Bolus) IV 03:13: Isolyte S He rmann 00 PH 7.4) Immunizations Ordered Immunization Filled Immunization Date Status Commen ts Source Name Name influenza virus 2016-04-15 Completed [facility] vaccine, inactivated 18:29:00 [facility] influenza virus 2016-04-15 Completed [facility] vaccine, inactivated 18:29:00 [facility] flower Vital Signs Vital Name Observation Time Observation Value Comments Source Body weight 2021-02-07 14:39:00 68.04 kg [facility] BMI 2021-02-07 14:39:00 24.21 kg/m2 [facility] Oxygen saturation in 2021-02-07 14:39:00 100 /min [facility] Arterial blood by [facility] Pulse oximetry Branch Systolic blood 2021-02-07 14:39:00 130 mm[Hg] Univer [facility] Diastolic blood 2021-02-07 14:39:00 87 mm[Hg] [facility] 2021-02-07 14:39:00 73 /min [facility] Body temperature 2021-02-07 14:39:00 36.78 Ericka [facility] Respiratory rate 2021-02-07 14:39:00 18 /min [facility] Systolic (mm Hg) 2016-11-25 19:00:00 Barrett rial Anand Diastolic (mm Hg) 2016-11-25 19:00:00 Mem orial [place] Temperature Oral (F) 2016-11-25 19:00:00 98.2 F [facility] [place] Respitory Rate 2016-11-25 19:00:00 Memori al [place] Weight 2016-11-25 17:20:00 Memorial Anand Height 2016-11-25 17:20:00 167.64 cm [facility] [place] BMI Calculated 2016-11-25 17:20:00 Memori al [place] Systolic (mm Hg) 2016-11-25 17:20:00 Barrett rial Anand Diastolic (mm Hg) 2016-11-25 17:20:00 Mem orial [place] Respitory Rate 2016-11-25 17:20:00 Memori al [place] Heart Rate 2016-11-25 17:20:00 [facility] [place] Temperature Oral (F) 2016-11-25 17:20:00 98.0 F [facility] [place] Respitory Rate 2016-04-17 18:59:00 Memori al [place] Systolic (mm Hg) 2016-04-17 18:59:00 Barrett rial Garnett Diastolic (mm Hg) 2016-04-17 18:59:00 Mem orial Anand Heart Rate 2016-04-17 18:59:00 [facility] [place] Temperature Oral (F) 2016-04-17 18:59:00 98.7 F [facility] [place] Heart Rate 2016-04-17 15:03:00 [facility] [place] Respitory Rate 2016-04-17 15:03:00 Memori al Anand Systolic (mm Hg) 2016-04-17 15:03:00 Barrett rial Garnett Diastolic (mm Hg) 2016-04-17 15:03:00 Mem orial Anand Temperature Oral (F) 2016-04-17 15:03:00 99.3 F Memorial Anand Heart Rate 2016-04-17 09:21:00 Memorial Anand Temperature Oral (F) 2016-04-17 09:21:00 98.4 F Memorial Anand Respitory Rate 2016-04-17 09:21:00 Memori al Anand Systolic (mm Hg) 2016-04-17 09:21:00 Barrett rial Anand Diastolic (mm Hg) 2016-04-17 09:21:00 Mem orial Anand Height 2016-04-14 07:11:00 167.64 cm [facility] BMI Calculated 2016-04-14 02:58:00 Memori al Anand Height 2016-04-14 02:58:00 167.64 cm Memorial Anand Weight 2016-04-14 02:58:00 [facility] Procedure Date / Time Performing Clinician Source Performed LIPASE 2021-02-07 15:06:00 Titus Yudelka [facility] COMP. METABOLIC PANEL 2021-02-07 15:06:00 Yudelka Qureshi [facility] ([id number]) [facility] CBC WITH DIFF 2021-02-07 15:06:00 Yudelka Qureshi [facility] URINALYSIS 2021-02-07 15:06:00 Titus Yudelka [facility] URINE DRUG (IMMUNOASSAY) 2021-02-07 15:06:00 Yudelka Qureshi [facility] SCREEN W/O REFLEX CONSENT/REFUSAL FOR 2021-02-07 14:32:31 Doctor Unatoro, Anamika Un iversity [facility] DIAGNOSIS AND TREATMENT Name [facility] Knee joint operation [facility] rmann Encounters Start End Encounter Admission Attending Care Care Encounter Source Date/Time Date/Time Type Type Clinicians Facility Department ID 2021-02-07 2021-02-07 Emergency X TITUS [facility] ERT [id number] Univers 08:40:00 11:07:00 YUDELKA barryvera [facility] 2021-02-07 2021-02-07 [facility] [id number] Univers 08:40:00 11:07:00 Yudelka CAMPO [id number] i [facility] [id number] [facility] [id number] [address] 2020-08-23 2020-08-23 Emergency EM Judy, COLE AMILCAR [id number] [facility] 12:59:00 15:30:[address] [place] [address] 2020-02-10 2020-02-10 Emergency [facility] [id number] 16:19:00 16:39:00 Van Campo [id number] [place] 4.2.7.2.686 [place] [id number] 2020-02-10 2020-02-10 Emergency [facility] [id number] Univers 16:19:00 16:19:00 VAN joe [facility] 2020-02-10 2020-02-10 Orders Doctor NELSON [id number] 00:00:00 00:00:00 Only Unassigned, KEYSHA [id number] [place] [facility] 4.2.7.2.686 [id number] 2018-10-26 2018-10-26 [facility] Hermes [facility] [id number] 13:26:56 23:59:00 Encounter , Isabel [id number] [place] 4.2.7.2.686 [facility] [id number] 2016-11-25 2016-11-25 Emergency [facility] [id number] Memoria 17:16:00 19:14:00 r Anand 01 [facility] 2016-11-25 2016-11-25 Emergency [facility] [id number] Memoria 17:16:00 19:14:00 r Garnett 01 l [facility] 2016-11-25 2016-11-25 Outpatient Nimisha [facility] [id number] 12:16:00 14:14:00 Octaviotali Mcnair 2016-04-14 2016-04-18 Inpatient [facility] [id number] Memoria 02:57:00 00:30:00 r Anand 00 [facility] 2016-04-14 2016-04-18 Inpatient [facility] [id number] Memoria 02:57:00 00:30:00 r Garnett 00 l [facility] 2016-04-13 2016-04-17 Outpatient Jin [facility] [id number] 20:57:00 18:30:00 Waqas Blount Results Test Description Test Time Test Comments Results Result Comments Source COMP. METABOLIC PANEL (04424) 2021-02-07 15:38:42 Test Item Value Reference Range Interpretation Comme nts NA (test code = 8113106819) 137 mmol/L 135-145 K (test code = 8854165905) 4.2 mmol/L 3.5-5.0 CL (test code = 2128422556) 103 mmol/L 98-108 CO2 TOTAL (test code = 0097317587) 26 mmol/L 23-31 AGAP (test code = 0476144724) 2-16 BUN (test code = 4313288979) 13 mg/dL 7-23 GLUCOSE (test code = 9864618220) 112 mg/dL 70-110 H CREATININE (test code = 0.90 mg/dL 0.60-1.25 3245015035) TOTAL BILI (test code = 0.5 mg/dL 0.1-1.0 8495140305) CALCIUM (test code = 1002149108) 9.5 mg/dL 8.6-10.6 T PROTEIN (test code = 7599358520) 7.7 g/dL 6.3-8.2 ALBUMIN (test code = 4303740562) 4.5 g/dL 3.5-5.0 ALK PHOS (test code = 5064001452) 61 U/L 34-122 ALTv (test code = 1742-6) 21 U/L 5-50 AST(SGOT) (test code = 4945975530) 25 U/L 13-40 eGFR (test code = 3780482853) mL/min/1.73m2 DIEGO (test code = DIEGO) Association [...] tests). Lab Interpretation (test code = Abnormal 98931-4) [facility] Test Item Value Reference Range Interpretation Comments LIPASE (test code = 0558089246) 63 U/L 0-220 Lab Interpretation (test code = Normal 67831-2) [facility] WITH [id number] 15:25:40 Test Item Value Reference Range Interpretation Comments WBC (test code = See_Comment [Automated 6690-2) message] The sy stem which generated this result transmitted reference range : 4.20 - 10.70 10*3/?L. The reference range was not used to interpret this result as normal/abnormal . RBC (test code = See_Comment [Automated 789-8) message] The sy stem which generated this [...] RDW-SD (test code = 42.7 fL 38.5-51.6 33419-5) RDW-CV (test code = 12.4 % 12.1-15.4 788-0) PLT (test code = See_Comment [Automated 777-3) message] The sy stem which generated this result transmitted reference range : 150 - 328 10*3/ ?L. The reference r sara was not used to interpret this result as normal/abnormal . MPV (test code = 9.5 fL 9.8-13.0 L 82864-2) NRBC/100 WBC (test See_Comment [Automat ed code = 4122518361) message] The system which generated this result transmitted reference range : 0.0 - 10.0 /100 WBCs. The refer ence range was not u sed to interpret th is result as normal/abnormal . NRBC x10^3 (test code <0.01 See_Comment [Auto mated = 7044827023) message] The s ystem which generated this result transmitted reference range : 10*3/?L. The reference range was not used to interpret this result as normal/abnormal . GRAN MAT (NEUT) % 68.7 % (test code = 770-8) IMM GRAN % (test code 0.40 % = 3964628048) LYMPH % (test code = 21.6 % 736-9) MONO % (test code = 6.8 % 5905-5) EOS % (test code = 1.6 % 713-8) BASO % (test code = 0.9 % 706-2) GRAN MAT x10^3(ANC) 5.25 10*3/uL 1.99-6.95 (test code = 5212058669) IMM GRAN x10^3 (test 0.03 10*3/uL 0.00-0.06 code = 6409288728) LYMPH x10^3 (test code 1.65 10*3/uL 1.09-3.23 = 731-0) MONO x10^3 (test code 0.52 10*3/uL 0.36-1.02 = 742-7) EOS x10^3 (test code = 0.12 10*3/uL 0.06-0.53 711-2) BASO x10^3 (test code 0.07 10*3/uL 0.01-0.09 = 704-7) Lab Interpretation Abnormal (test code = 37274-1) [facility] [id number] 13:51:00 Test Item Value Reference Range Interpretation [...] one of thoseassays per formed in our lab.Kerwine melba testing perform ed at Ortho determined that [...] Bu/0.8 mg/dl +0.25mg/dl +0.2 4mg/dlBuBc 7 mg/dl Bu/14.2mg /dl +0.38mg/dl +0.2 5mg/dlBuBc 5mg/dl Bc/0mg/d l +0.25mg/dl [...] 527 UNITS/L 55-170 H CK) CBC W/AUTO [id number] 13:40:00 Test Item Value Reference Range Interpretation [...] = 0.00 K/mm3 0.0-0.1 N NRBC#) CARDIAC [id number] 09:44:00 Test Item Value Reference Range Interpretation Comments Total CK (test code = Total CK) 1034 [id number] 09:44:00 Test Item Value Reference Range Interpretation Comments Myoglobin (test code = Myoglobin) [facility] [id number] 09:44:00 Test Item Value Reference Range Interpretation Comments Total CK (test code = Total CK) 1034 [facility]w[id number] 09:44:00 Test Item Value Reference Range Interpretation Comments Myoglobin (test code = Myoglobin) 45 [facility] [id number] 10:58:00 Test Item Value Reference Range Interpretation Comments Total CK (test code = Total CK) 1278 [facility]woodKmluvfjSACQOFZIQ7747-70-47 10:58:00 Test Item Value Reference Range Interpretation Comments Myoglobin (test code = Myoglobin) 22 [facility] [id number] 10:58:00 Test Item Value Reference Range Interpretation Comments Total CK (test code = Total CK) 1278 [facility]NzidgmpZCTLUOFDH3558-05-44 10:58:00 Test Item Value Reference Range Interpretation Comments Myoglobin (test code = Myoglobin) 22 [facility] [id number] 14:37:00 Test Item Value Reference Range Interpretation Comments Total CK (test code = Total CK) 1300 [facility] HospitalRjezgthYXRUASOIX9542-22-93 14:37:00 Test Item Value Reference Range Interpretation Comments Myoglobin (test code = Myoglobin) 196 [facility] [id number] 14:37:00 Test Item Value Reference Range Interpretation Comments Total CK (test code = Total CK) 1300 [facility]woodHpurmiwCOAPUXNQJ7086-12-66 14:37:00 Test Item Value Reference Range Interpretation Comments Myoglobin (test code = Myoglobin) 196 [facility] [id number] 06:25:00 Test Item Value Reference Range Interpretation Comments Phosphorus (test code = Phosphorus) 2.7 2.5-4.5 [facility] [id number] 06:25:00 Test Item Value Reference Range Interpretation Comments Phosphorus (test code = Phosphorus) 2.7 2.5-4.5 [facility] [id number] 06:25:00 Test Item Value Reference Range Interpretation Comments Magnesium Lvl (test code = Magnesium 2.3 1.8-2.4 Lvl) [id number] 06:25:00 Test Item Value Reference Range Interpretation Comments AGAP (test code = AGAP) 12.7 10.0-20.0 [facility] IrvingDdwpofkZFDCHGLOKFFL1132-28-55 06:25:00 Test Item Value Reference Range Interpretation Comments eGFR (test code = eGFR) 118 [facility]JgoiuhfOEEBMHWTVOBN2523-76-01 06:25:00 Test Item Value Reference Range Interpretation Comments Calcium Lvl (test code = Calcium Lvl) 8.3 8.5-10.5 [facility] HospitalXxuisisZANLPEAXJYHU1108-68-52 06:25:00 Test Item Value Reference Range Interpretation Comments CO2 (test code = CO2) 30 24-32 [facility]EtfanwfJSGETQKYRWEU3049-73-07 06:25:00 Test Item Value Reference Range Interpretation Comments Sodium Lvl (test code = Sodium Lvl) 139 135-145 [facility]TsxswtdPSZATALCEPGP8986-67-67 06:25:00 Test Item Value Reference Range Interpretation Comments Creatinine Lvl (test code = Creatinine 0.88 0.50-1.40 Lvl) [facility]KmupnmeIFUITMOLQYLH1403-74-23 06:25:00 Test Item Value Reference Range Interpretation Comments BUN (test code = BUN) 8 7-22 [facility] HospitalBubocblRGILPPNWXUWS7787-55-07 06:25:00 Test Item Value Reference Range Interpretation Comments Chloride Lvl (test code = Chloride Lvl) 100 95-109 [facility] GDQST8890-87-45 06:25:00 Test Item Value Reference Range Interpretation Comments Magnesium Lvl (test code = Magnesium 2.3 1.8-2.4 Lvl) [facility]KjfeoadCAAZXSKQMGSG8284-66-37 06:25:00 Test Item Value Reference Range Interpretation Comments Potassium Lvl (test code = Potassium 3.7 3.5-5.1 Lvl) [facility]IrjrpibBNETTXHNCMAR6376-62-17 06:25:00 Test Item Value Reference Range Interpretation Comments Glucose Lvl (test code = Glucose Lvl) 106 70-99 [facility]UybiudbCDBJFNZBGW6786-30-70 06:25:00 Test Item Value Reference Range Interpretation Comments Segs (test code = Segs) 84.8 45.0-75.0 [facility] HospitalCeukzckYLBIVFMHAU4934-71-25 06:25:00 Test Item Value Reference Range Interpretation Comments Eosinophils (test code = 1.0 See_Comment [A utomated message] The Eosinophils) system which ge nerated this result tra nsmitted reference range : <=4.0. The reference r sara was not used to int erpret this result as normal/abnormal . [facility] HospitalZgvjmfrWUNDQXSFYK5343-32-09 06:25:00 Test Item Value Reference Range Interpretation Comments Basophils (test code = 0.4 See_Comment [Aut omated message] The Basophils) system which ge nerated this result tra nsmitted reference range : <=1.0. The reference r sara was not used to int erpret this result as normal/abnormal . [facility] HospitalQlvueqoSZUFDEHTWN7695-24-15 06:25:00 Test Item Value Reference Range Interpretation Comments Segs-Bands # (test code = Segs-Bands #) 7.4 1.5-8.1 [facility] HospitalPygujpgOHUVVTZLYJ6054-80-93 06:25:00 Test Item Value Reference Range Interpretation Comments Lymphocytes # (test code = Lymphocytes 0.8 1.0-5.5 #) [facility] HospitalShfxcuaIKKZDZJARS4912-30-84 06:25:00 Test Item Value Reference Range Interpretation Comments Eosinophils # (test code 0.1 See_Comment [A utomated message] The = Eosinophils #) system whic h generated this result tra nsmitted reference range : <=0.5. The reference r sara was not used to int erpret this result as normal/abnormal . [facility] HospitalRqfrwpiPMSDPRTXWB6906-54-41 06:25:00 Test Item Value Reference Range Interpretation Comments Monocytes (test code = Monocytes) 4.4 2.0-12.0 [facility] HospitalYdmovrcIWXINCZDOQ6034-08-92 06:25:00 Test Item Value Reference Range Interpretation Comments Lymphocytes (test code = Lymphocytes) 9.4 20.0-40.0 [facility] ClinicVtholfaXKXJLJYOLLHB6750-03-93 06:25:00 Test Item Value Reference Range Interpretation Comments AGAP (test code = AGAP) 12.7 10.0-20.0 [facility] HospitalPyzqodbDTURDKGRYA4841-09-20 06:25:00 Test Item Value Reference Range Interpretation Comments Monocytes # (test code 0.4 See_Comment [Aut omated message] The = Monocytes #) system which generated this result tra nsmitted reference range : <=0.8. The reference r sara was not used to int erpret this result as normal/abnormal . [facility] HospitalHnmjuxuXQZMJDSQYG5059-66-84 06:25:00 Test Item Value Reference Range Interpretation Comments RDW (test code = RDW) 13.3 11.5-14.5 [facility] HospitalAdcbbjwDIMJFCWKET2465-69-19 06:25:00 Test Item Value Reference Range Interpretation Comments Platelet (test code = Platelet) 163 133-450 [facility] HospitalOlgtwdzLXZVISOLJI9715-60-28 06:25:00 Test Item Value Reference Range Interpretation Comments MPV (test code = MPV) 8.4 7.4-10.4 [facility] HospitalEcteuagRNHLOJMZIX5061-87-03 06:25:00 Test Item Value Reference Range Interpretation Comments RBC (test code = RBC) 3.73 4.70-6.10 [facility] HospitalQldwkpjKOMYVDTEQH3648-86-62 06:25:00 Test Item Value Reference Range Interpretation Comments WBC (test code = WBC) 8.8 3.7-10.4 [facility] HospitalYudvubyTQIGXQDMLP2102-79-12 06:25:00 Test Item Value Reference Range Interpretation Comments Hgb (test code = Hgb) 12.1 14.0-18.0 [facility] HospitalTzqljckEAHDPZZWRQ3220-46-80 06:25:00 Test Item Value Reference Range Interpretation Comments Hct (test code = Hct) 34.1 42.0-54.0 [facility] HospitalPwtmmanSBDGQRAIVI0311-42-13 06:25:00 Test Item Value Reference Range Interpretation Comments MCHC (test code = MCHC) 35.6 32.0-36.0 [facility] HospitalYzwqcmsCECIMBKMPT9387-57-57 06:25:00 Test Item Value Reference Range Interpretation Comments MCV (test code = MCV) 91.4 80.0-94.0 [facility] HospitalOseihpqXQAUZVEIJN5291-78-77 06:25:00 Test Item Value Reference Range Interpretation Comments MCH (test code = MCH) 32.5 pg 27.0-31.0 [facility]OvzeskxNZSCGNJTNXHN6727-80-35 06:25:00 Test Item Value Reference Range Interpretation Comments eGFR (test code = eGFR) 118 [facility] HospitalGcqtnzeUHSYZFWIXTQC3308-84-60 06:25:00 Test Item Value Reference Range Interpretation Comments Calcium Lvl (test code = Calcium Lvl) 8.3 8.5-10.5 [facility] HospitalMapivwqOIDVECUTKQIH5125-27-42 06:25:00 Test Item Value Reference Range Interpretation Comments CO2 (test code = CO2) 30 24-32 [facility] HospitalLimwjidWHOOMCQAQWPS6296-21-96 06:25:00 Test Item Value Reference Range Interpretation Comments Sodium Lvl (test code = Sodium Lvl) 139 135-145 [facility] HospitalMtorenfRWQOUFOSLAGR9683-29-61 06:25:00 Test Item Value Reference Range Interpretation Comments Creatinine Lvl (test code = Creatinine 0.88 0.50-1.40 Lvl) [facility] HospitalFjarvzySZUMWCQAWXVI7729-36-74 06:25:00 Test Item Value Reference Range Interpretation Comments BUN (test code = BUN) 8 7-22 [facility] HospitalKjfhtwgHKUHGMANMIQF9031-61-58 06:25:00 Test Item Value Reference Range Interpretation Comments Chloride Lvl (test code = Chloride Lvl) 100 95-109 [facility] HospitalDcgkapiOEJKWPOXJLTL0901-41-84 06:25:00 Test Item Value Reference Range Interpretation Comments Potassium Lvl (test code = Potassium 3.7 3.5-5.1 Lvl) [facility] HospitalLkekbooUHQBUUPJCIKV2877-26-35 06:25:00 Test Item Value Reference Range Interpretation Comments Glucose Lvl (test code = Glucose Lvl) 106 70-99 [facility] HospitalRjqxajbOBFXWSSAXK8895-62-75 06:25:00 Test Item Value Reference Range Interpretation Comments Segs (test code = Segs) 84.8 45.0-75.0 [facility] HospitalBpvlmldLPCJEDXRBH1610-21-17 06:25:00 Test Item Value Reference Range Interpretation Comments Eosinophils (test code = 1.0 See_Comment [A utomated message] The Eosinophils) system which nerated this result tra nsmitted reference range : <=4.0. The reference r sara was not used to int erpret this result as normal/abnormal . [facility] HospitalQgobkzxJZPKPGVWPZ8299-31-28 06:25:00 Test Item Value Reference Range Interpretation Comments Basophils (test code = 0.4 See_Comment [Aut omated message] The Basophils) system which nerated this result tra nsmitted reference range : <=1.0. The reference r sara was not used to int erpret this result as normal/abnormal . [facility] HospitalXsygitzCENFIFEQXX5519-56-03 06:25:00 Test Item Value Reference Range Interpretation Comments Segs-Bands # (test code = Segs-Bands #) 7.4 1.5-8.1 [facility] HospitalGlrsxobFRWQLSUESY3749-94-91 06:25:00 Test Item Value Reference Range Interpretation Comments Lymphocytes # (test code = Lymphocytes 0.8 1.0-5.5 #) [facility] HospitalWbthsrrFIKPCPLJJK3199-28-08 06:25:00 Test Item Value Reference Range Interpretation Comments Eosinophils # (test code 0.1 See_Comment [A utomated message] The = Eosinophils #) system whic h generated this result tra nsmitted reference range : <=0.5. The reference r sara was not used to int erpret this result as normal/abnormal . [facility] HospitalPvzfmmkVARZQPCTVH2032-50-12 06:25:00 Test Item Value Reference Range Interpretation Comments Monocytes (test code = Monocytes) 4.4 2.0-12.0 [facility] HospitalYepwuthIBICLAEGCX5493-93-03 06:25:00 Test Item Value Reference Range Interpretation Comments Lymphocytes (test code = Lymphocytes) 9.4 20.0-40.0 [facility] HospitalWojvjosEMHWONJXYX0635-52-94 06:25:00 Test Item Value Reference Range Interpretation Comments Monocytes # (test code 0.4 See_Comment [Aut omated message] The = Monocytes #) system which generated this result tra nsmitted reference range : <=0.8. The reference r sara was not used to int erpret this result as normal/abnormal . [facility] HospitalCggcnvyEYRGGTQXXM2470-57-62 06:25:00 Test Item Value Reference Range Interpretation Comments RDW (test code = RDW) 13.3 11.5-14.5 [facility] HospitalIyfgaziVAAHDVRSSV7585-52-28 06:25:00 Test Item Value Reference Range Interpretation Comments Platelet (test code = Platelet) 163 133-450 [facility] HospitalTpcpfquHTWBGDESPS0541-99-80 06:25:00 Test Item Value Reference Range Interpretation Comments MPV (test code = MPV) 8.4 7.4-10.4 [facility] HospitalLxxgekaJEZEDLUBBU6659-20-81 06:25:00 Test Item Value Reference Range Interpretation Comments RBC (test code = RBC) 3.73 4.70-6.10 [facility] HospitalDvosicfXSYKXFHAVJ1175-24-22 06:25:00 Test Item Value Reference Range Interpretation Comments WBC (test code = WBC) 8.8 3.7-10.4 [facility] HospitalLmrxxeoMTHPUXRRHE5819-64-35 06:25:00 Test Item Value Reference Range Interpretation Comments Hgb (test code = Hgb) 12.1 14.0-18.0 [facility] HospitalQoygahbSPZAFPCVDA4191-09-18 06:25:00 Test Item Value Reference Range Interpretation Comments Hct (test code = Hct) 34.1 42.0-54.0 [facility]IyfuqdvUCIWVYWQYR2424-53-32 06:25:00 Test Item Value Reference Range Interpretation Comments MCHC (test code = MCHC) 35.6 32.0-36.0 [facility] HospitalKahpspyBFOELYQPRM8745-62-33 06:25:00 Test Item Value Reference Range Interpretation Comments MCV (test code = MCV) 91.4 80.0-94.0 [facility] HospitalMhrdqfdNCSGQNZUJK2866-25-38 06:25:00 Test Item Value Reference Range Interpretation Comments MCH (test code = MCH) 32.5 pg 27.0-31.0 [facility]TjmmacwAXTAVVBXA4365-99-22 04:17:00 Test Item Value Reference Range Interpretation Comments U Myoglobin (test code no gt See_Comment [Aut omated message] The = U Myoglobin) system which generated this result tra nsmitted reference range : <=30. The reference r sara was not used to int erpret this result as normal/abnormal . [facility]woodSpujmrmGGVJOHUQP6775-15-61 04:17:00 Test Item Value Reference Range Interpretation Comments U Myoglobin (test code no gt See_Comment [Aut omated message] The = U Myoglobin) system which generated this result tra nsmitted reference range : <=30. The reference r sara was not used to int erpret this result as normal/abnormal . [facility] HospitalEgaqsjeNMUSEEXYBE5109-74-72 06:49:00 Test Item Value Reference Range Interpretation Comments Lymphocytes (test code = Lymphocytes) 8.2 20.0-40.0 [facility] HospitalNwyuedqMLLCXPHSKL8809-92-14 06:49:00 Test Item Value Reference Range Interpretation Comments Basophils (test code = 0.5 See_Comment [Aut omated message] The Basophils) system which ge nerated this result tra nsmitted reference range : <=1.0. The reference r sara was not used to int erpret this result as normal/abnormal . [facility] HospitalAgvqdpgBVNHUHEBPJ3965-81-03 06:49:00 Test Item Value Reference Range Interpretation Comments Monocytes (test code = Monocytes) 7.4 2.0-12.0 [facility] HospitalOciwqugEALAVAVKDK6448-94-43 06:49:00 Test Item Value Reference Range Interpretation Comments Segs (test code = Segs) 83.9 45.0-75.0 [facility]2017-02-13 06:49:00 Test Item Value Reference Range Interpretation Comments eGFR (test code = eGFR) 97 [facility]2017-02-13 06:49:00 Test Item Value Reference Range Interpretation Comments Calcium Lvl (test code = Calcium Lvl) 9.1 8.5-10.5 [facility]2017-02-13 06:49:00 Test Item Value Reference Range Interpretation Comments Chloride Lvl (test code = Chloride Lvl) 99 95-109 [facility]2017-02-13 06:49:00 Test Item Value Reference Range Interpretation Comments CO2 (test code = CO2) 24 24-32 [facility]2017-02-13 06:49:00 Test Item Value Reference Range Interpretation Comments BUN (test code = BUN) 9 7-22 [facility]2017-02-13 06:49:00 Test Item Value Reference Range Interpretation Comments Glucose Lvl (test code = Glucose Lvl) 85 70-99 [facility]2017-02-13 06:49:00 Test Item Value Reference Range Interpretation Comments Creatinine Lvl (test code = Creatinine 1.05 0.50-1.40 Lvl) [facility]2017-02-13 06:49:00 Test Item Value Reference Range Interpretation Comments Potassium Lvl (test code = Potassium 3.9 3.5-5.1 Lvl) [facility]2017-02-13 06:49:00 Test Item Value Reference Range Interpretation Comments Sodium Lvl (test code = Sodium Lvl) 136 135-145 [facility]2017-02-13 06:49:00 Test Item Value Reference Range Interpretation Comments AGAP (test code = AGAP) 16.9 10.0-20.0 [facility] HospitalNrktfvsFIICSNDTSQ7106-47-90 06:49:00 Test Item Value Reference Range Interpretation Comments RDW (test code = RDW) 13.5 11.5-14.5 [facility] HospitalMuqehzlTAZJMEHCFI2283-24-68 06:49:00 Test Item Value Reference Range Interpretation Comments MCHC (test code = MCHC) 34.5 32.0-36.0 [facility] HospitalSlmhmxoYSPXOXKKPX0488-90-45 06:49:00 Test Item Value Reference Range Interpretation Comments MPV (test code = MPV) 8.2 7.4-10.4 [facility] HospitalGtoawkuRFQSBDXONM1694-21-29 06:49:00 Test Item Value Reference Range Interpretation Comments Platelet (test code = Platelet) 223 133-450 [facility] HospitalJqcqiypQWIFGFQPXC3598-62-84 06:49:00 Test Item Value Reference Range Interpretation Comments MCH (test code = MCH) 31.7 pg 27.0-31.0 [facility] HospitalUithqsmPIGSQCWKPQ3612-54-09 06:49:00 Test Item Value Reference Range Interpretation Comments MCV (test code = MCV) 92.0 80.0-94.0 [facility] HospitalBpialbqNRAUKOMUVT4008-21-07 06:49:00 Test Item Value Reference Range Interpretation Comments Hct (test code = Hct) 42.9 42.0-54.0 [facility] HospitalDfyfjnaHXQCSHVCQA4453-56-16 06:49:00 Test Item Value Reference Range Interpretation Comments Hgb (test code = Hgb) 14.8 14.0-18.0 [facility] HospitalOmxgverWRGCKGHWOP4574-54-28 06:49:00 Test Item Value Reference Range Interpretation Comments Hgb (test code = Hgb) 14.8 14.0-18.0 [facility] HospitalNxbkfptUZSRGVSRTQ2927-12-95 06:49:00 Test Item Value Reference Range Interpretation Comments RBC (test code = RBC) 4.66 4.70-6.10 [facility] HospitalPkwbtavTHJSBHYBGW8510-77-08 06:49:00 Test Item Value Reference Range Interpretation Comments WBC (test code = WBC) 12.5 3.7-10.4 [facility] HospitalBaxaxbfLEVFPVWCNQ9792-90-97 06:49:00 Test Item Value Reference Range Interpretation Comments Basophils # (test code 0.1 See_Comment [Aut omated message] The = Basophils #) system which generated this result tra nsmitted reference range : <=0.2. The reference r sara was not used to int erpret this result as normal/abnormal . [facility] HospitalTgvpmnxFSNJASOYTY2919-71-22 06:49:00 Test Item Value Reference Range Interpretation Comments Monocytes # (test code 0.9 See_Comment [Aut omated message] The = Monocytes #) system which generated this result tra nsmitted reference range : <=0.8. The reference r sara was not used to int erpret this result as normal/abnormal . [facility] HospitalRlcztjtSZWSPCIJDS2644-91-40 06:49:00 Test Item Value Reference Range Interpretation Comments Lymphocytes # (test code = Lymphocytes 1.0 1.0-5.5 #) [facility] HospitalHuxkrlsBOYQTGXYXU5950-54-09 06:49:00 Test Item Value Reference Range Interpretation Comments Segs-Bands # (test code = Segs-Bands #) 10.5 1.5-8.1 [facility] HospitalFlywtwpRARIOXLTQG0333-97-52 06:49:00 Test Item Value Reference Range Interpretation Comments Lymphocytes (test code = Lymphocytes) 8.2 20.0-40.0 [facility] HospitalOlirypbUYNBDDUJFB0777-25-30 06:49:00 Test Item Value Reference Range Interpretation Comments Basophils (test code = 0.5 See_Comment [Aut omated message] The Basophils) system which ge nerated this result tra nsmitted reference range : <=1.0. The reference r sara was not used to int erpret this result as normal/abnormal . [facility] HospitalCppskdtADQKKOCEDW4392-51-37 06:49:00 Test Item Value Reference Range Interpretation Comments Monocytes (test code = Monocytes) 7.4 2.0-12.0 [facility] HospitalGvdnpqvRCNQPAECWB3111-79-58 06:49:00 Test Item Value Reference Range Interpretation Comments Segs (test code = Segs) 83.9 45.0-75.0 [facility]2017-02-13 06:49:00 Test Item Value Reference Range Interpretation Comments eGFR (test code = eGFR) 97 [facility]2017-02-13 06:49:00 Test Item Value Reference Range Interpretation Comments Calcium Lvl (test code = Calcium Lvl) 9.1 8.5-10.5 [facility]2017-02-13 06:49:00 Test Item Value Reference Range Interpretation Comments Chloride Lvl (test code = Chloride Lvl) 99 95-109 [facility]2017-02-13 06:49:00 Test Item Value Reference Range Interpretation Comments CO2 (test code = CO2) 24 24-32 [facility]2017-02-13 06:49:00 Test Item Value Reference Range Interpretation Comments BUN (test code = BUN) 9 7-22 [place] 677127-02-13 06:49:00 Test Item Value Reference Range Interpretation Comments Glucose Lvl (test code = Glucose Lvl) 85 70-99 [facility]2017-02-13 06:49:00 Test Item Value Reference Range Interpretation Comments Creatinine Lvl (test code = Creatinine 1.05 0.50-1.40 Lvl) [facility]2017-02-13 06:49:00 Test Item Value Reference Range Interpretation Comments Potassium Lvl (test code = Potassium 3.9 3.5-5.1 Lvl) [facility]2017-02-13 06:49:00 Test Item Value Reference Range Interpretation Comments Sodium Lvl (test code = Sodium Lvl) 136 135-145 [facility]2017-02-13 06:49:00 Test Item Value Reference Range Interpretation Comments AGAP (test code = AGAP) 16.9 10.0-20.0 [facility] HospitalLqsmagwFLXLPKUKXM8097-78-36 06:49:00 Test Item Value Reference Range Interpretation Comments RDW (test code = RDW) 13.5 11.5-14.5 [place] 302587-02-13 06:49:00 Test Item Value Reference Range Interpretation Comments MCHC (test code = MCHC) 34.5 32.0-36.0 [facility] HospitalNwowuqmKJQVZNORUB3748-59-34 06:49:00 Test Item Value Reference Range Interpretation Comments MPV (test code = MPV) 8.2 7.4-10.4 [facility] HospitalKrrlnlzTHUBOWIFOY3122-28-51 06:49:00 Test Item Value Reference Range Interpretation Comments Platelet (test code = Platelet) 223 133-450 [facility] HospitalDdonordWOAZOIQEUL3187-18-17 06:49:00 Test Item Value Reference Range Interpretation Comments MCH (test code = MCH) 31.7 pg 27.0-31.0 [facility] HospitalLeqjnmlACHGXPXJCH9664-19-12 06:49:00 Test Item Value Reference Range Interpretation Comments MCV (test code = MCV) 92.0 80.0-94.0 [facility] HospitalUxtopblJLKBIWLXMW7248-68-65 06:49:00 Test Item Value Reference Range Interpretation Comments Hct (test code = Hct) 42.9 42.0-54.0 [facility] HospitalFuaavlkVCOXWVADSA5071-32-75 06:49:00 Test Item Value Reference Range Interpretation Comments RBC (test code = RBC) 4.66 4.70-6.10 [facility]EovkeofPJVFPYYXBP7120-42-33 06:49:00 Test Item Value Reference Range Interpretation Comments WBC (test code = WBC) 12.5 3.7-10.4 [facility]TropbmvGOPJYWLNPN2467-28-47 06:49:00 Test Item Value Reference Range Interpretation Comments Basophils # (test code 0.1 See_Comment [Aut omated message] The = Basophils #) system which generated this result tra nsmitted reference range : <=0.2. The reference r sara was not used to int erpret this result as normal/abnormal . [facility] YfrfbufEJPXDOEMJH5774-78-94 06:49:00 Test Item Value Reference Range Interpretation Comments Monocytes # (test code 0.9 See_Comment [Aut omated message] The = Monocytes #) system which generated this result tra nsmitted reference range : <=0.8. The reference r sara was not used to int erpret this result as normal/abnormal . [facility] ClinicBhljcwfOJOKEXQQYD7110-57-91 06:49:00 Test Item Value Reference Range Interpretation Comments Lymphocytes # (test code = Lymphocytes 1.0 1.0-5.5 #) [facility] CpljtfuMAOHZQFAUM9291-28-14 06:49:00 Test Item Value Reference Range Interpretation Comments Segs-Bands # (test code = Segs-Bands #) 10.5 1.5-8.1 [employer] UTOJUHO0063-19-04 03:41:00 Test Item Value Reference Range Interpretation Comments Antibody Scrn (test Negative (04/13/16 9:41 code = Antibody Scrn) PM) [facility] [employer] QHMWFAN0788-20-45 03:41:00 Test Item Value Reference Range Interpretation Comments ABO/Rh (test code = ABO/Rh) O [employer] [facility] XJBUKPE6009-99-52 03:41:00 Test Item Value Reference Range Interpretation Comments Antibody Scrn (test Negative (04/13/16 9:41 code = Antibody Scrn) PM) [employer] AJZSHJZ8965-14-96 03:41:00 Test Item Value Reference Range Interpretation Comments ABO/Rh (test code = ABO/Rh) O [employer] [facility] [id number] 03:40:00 Test Item Value Reference Range Interpretation Comments Lactic Acid Lvl (test code = Lactic 1.7 0.5-2.2 Acid Lvl) [facility]2017-02-13 03:40:00 Test Item Value Reference Range Interpretation Comments eGFR (test code = eGFR) 108 [place] 677127-02-13 03:40:00 Test Item Value Reference Range Interpretation Comments Calcium Lvl (test code = Calcium Lvl) 9.1 8.5-10.5 [facility]2017-02-13 03:40:00 Test Item Value Reference Range Interpretation Comments Chloride Lvl (test code = Chloride Lvl) 101 95-109 [facility]2017-02-13 03:40:00 Test Item Value Reference Range Interpretation Comments CO2 (test code = CO2) 24 24-32 [facility]2017-02-13 03:40:00 Test Item Value Reference Range Interpretation Comments Sodium Lvl (test code = Sodium Lvl) 137 135-145 [facility]2017-02-13 03:40:00 Test Item Value Reference Range Interpretation Comments Creatinine Lvl (test code = Creatinine 0.96 0.50-1.40 Lvl) [facility]2017-02-13 03:40:00 Test Item Value Reference Range Interpretation Comments BUN (test code = BUN) 7 7-22 [facility]2017-02-13 03:40:00 Test Item Value Reference Range Interpretation Comments Potassium Lvl (test code = Potassium 3.4 3.5-5.1 Lvl) [facility]2017-02-13 03:40:00 Test Item Value Reference Range Interpretation Comments Glucose Lvl (test code = Glucose Lvl) 105 70-99 [facility] [place]2017-02-13 03:40:00 Test Item Value Reference Range Interpretation Comments AGAP (test code = AGAP) 15.4 10.0-20.0 [facility]zqdupeTHOEFDJLQF0785-87-12 03:40:00 Test Item Value Reference Range Interpretation Comments Hgb (test code = Hgb) 15.4 14.0-18.0 [facility] Hospit[id number] 03:40:00 Test Item Value Reference Range Interpretation Comments Hct (test code = Hct) 44.3 42.0-54.0 [place] [id number] 03:40:00 Test Item Value Reference Range Interpretation Comments MCV (test code = MCV) 92.1 80.0-94.0 [facility] HospitalFysrsorSEXNNBIBAN8087-48-80 03:40:00 Test Item Value Reference Range Interpretation Comments MCH (test code = MCH) 32.1 pg 27.0-31.0 [facility] HospitalWpdxxgoCDVANCCZQZ1446-10-78 03:40:00 Test Item Value Reference Range Interpretation Comments RDW (test code = RDW) 13.6 11.5-14.5 [facility] HospitalJijzqoeVBEUPNLOKY0552-31-64 03:40:00 Test Item Value Reference Range Interpretation Comments Platelet (test code = Platelet) 247 133-450 [facility] HospitalXmgbobbKIIRSEOMXY7302-23-29 03:40:00 Test Item Value Reference Range Interpretation Comments MCHC (test code = MCHC) 34.9 32.0-36.0 [facility] HospitalKysbwtfYTJYLHUHCK3380-81-04 03:40:00 Test Item Value Reference Range Interpretation Comments WBC (test code = WBC) 17.6 3.7-10.4 [facility] HospitalWimcoeuHZKYHSQWGL4697-87-24 03:40:00 Test Item Value Reference Range Interpretation Comments RBC (test code = RBC) 4.81 4.70-6.10 [facility] HospitalIyundbpQENVCZCTEB6693-58-80 03:40:00 Test Item Value Reference Range Interpretation Comments MPV (test code = MPV) 7.5 7.4-10.4 [facility] HospitalKviywtaHYTDPFHYFD1769-81-64 03:40:00 Test Item Value Reference Range Interpretation Comments Estimated % Lysis Rapid 3.7 See_Comment [Au tomated message] The (test code = Estimated syste m which generated % Lysis Rapid) this result t ransmitted reference range : <=7.5. The reference r sara was not used to int erpret this result as normal/abnormal . [facility] HospitalOyjsjxyJVPYQHHSTD7596-32-32 03:40:00 Test Item Value Reference Range Interpretation Comments G-value Rapid (test code = G-value 8.4 5.0-11.6 Rapid) [facility] HospitalEryppznYRDDWTRBRH7208-88-14 03:40:00 Test Item Value Reference Range Interpretation Comments Angle Rapid (test code = Angle 76 degrees 64-80 Rapid) [facility] HospitalVnpluudPPZTAGBPTP5838-79-31 03:40:00 Test Item Value Reference Range Interpretation Comments Max Amplitude Rapid (test code = Max 63 mm 52-71 Amplitude Rapid) [facility] HospitalPuosjrxDWXHVBQAPC5746-78-45 03:40:00 Test Item Value Reference Range Interpretation Comments R-time Rapid (test code = R-time 0.7 min 0.4-0.7 Rapid) [facility] HospitalRdgpwgrICMGNUZWOW5326-77-37 03:40:00 Test Item Value Reference Range Interpretation Comments Split Point Rapid (test code = Split 0.6 min Point Rapid) [facility] HospitalQfxzeldKTHOAGSDFN7691-75-28 03:40:00 Test Item Value Reference Range Interpretation Comments K-time Rapid (test code = K-time 1.2 min 0.6-2.3 Rapid) [facility] HospitalKvkdtjaJFOQYIVBYZ9053-94-28 03:40:00 Test Item Value Reference Range Interpretation Comments ACT (TEG) Rapid (test code = ACT (TEG) 113 s 86-118 Rapid) [facility] HospitalAzboqsqMVSAKENSOL8554-20-76 03:40:00 Test Item Value Reference Range Interpretation Comments Monocytes (test code = Monocytes) 5.5 2.0-12.0 [facility] HospitalWknyuflCVEOGGULHT9137-69-28 03:40:00 Test Item Value Reference Range Interpretation Comments Basophils (test code = 0.3 See_Comment [Aut omated message] The Basophils) system which ge nerated this result tra nsmitted reference range : <=1.0. The reference r sara was not used to int erpret this result as normal/abnormal . [facility] HospitalQlbvttzAAVDPCLBMV6595-18-95 03:40:00 Test Item Value Reference Range Interpretation Comments Segs (test code = Segs) 86.4 45.0-75.0 [facility] HospitalAuowdqgYGDCHKAFKL8745-31-59 03:40:00 Test Item Value Reference Range Interpretation Comments Lymphocytes (test code = Lymphocytes) 7.8 20.0-40.0 [facility] HospitalKkpdtlgQUYJALKVHN3169-17-90 03:40:00 Test Item Value Reference Range Interpretation Comments Monocytes # (test code 1.0 See_Comment [Aut omated message] The = Monocytes #) system which generated this result tra nsmitted reference range : <=0.8. The reference r sara was not used to int erpret this result as normal/abnormal . [place] [address]-02-13 03:40:00 Test Item Value Reference Range Interpretation Comments Segs-Bands # (test code = Segs-Bands #) 15.2 1.5-8.1 [facility] HospitalGlikihcEKMTXJWGAL6516-82-85 03:40:00 Test Item Value Reference Range Interpretation Comments Lymphocytes # (test code = Lymphocytes 1.4 1.0-5.5 #) [facility] [place]2017-02-13 03:40:00 Test Item Value Reference Range Interpretation Comments Lactic Acid Lvl (test code = Lactic 1.7 0.5-2.2 Acid Lvl) [facility] [place]2017-02-13 03:40:00 Test Item Value Reference Range Interpretation Comments eGFR (test code = eGFR) 108 [facility] [place]2017-02-13 03:40:00 Test Item Value Reference Range Interpretation Comments Calcium Lvl (test code = Calcium Lvl) 9.1 8.5-10.5 [facility] [place]2017-02-13 03:40:00 Test Item Value Reference Range Interpretation Comments Chloride Lvl (test code = Chloride Lvl) 101 95-109 [facility] [place]2017-02-13 03:40:00 Test Item Value Reference Range Interpretation Comments CO2 (test code = CO2) 24 24-32 [facility] [place]2017-02-13 03:40:00 Test Item Value Reference Range Interpretation Comments Sodium Lvl (test code = Sodium Lvl) 137 135-145 [facility] [place]2017-02-13 03:40:00 Test Item Value Reference Range Interpretation Comments Creatinine Lvl (test code = Creatinine 0.96 0.50-1.40 Lvl) [facility] [place]2017-02-13 03:40:00 Test Item Value Reference Range Interpretation Comments BUN (test code = BUN) 7 7-22 [facility] [place]2017-02-13 03:40:00 Test Item Value Reference Range Interpretation Comments Potassium Lvl (test code = Potassium 3.4 3.5-5.1 Lvl) [facility] [place]2017-02-13 03:40:00 Test Item Value Reference Range Interpretation Comments Glucose Lvl (test code = Glucose Lvl) 105 70-99 [facility] [place]2017-02-13 03:40:00 Test Item Value Reference Range Interpretation Comments AGAP (test code = AGAP) 15.4 10.0-20.0 [facility] HospitalY[id number] 03:40:00 Test Item Value Reference Range Interpretation Comments Hgb (test code = Hgb) 15.4 14.0-18.0 [facility] HospitalPpngyraRQTQTXZKWY6984-59-66 03:40:00 Test Item Value Reference Range Interpretation Comments Hct (test code = Hct) 44.3 42.0-54.0 [facility] HospitalKzmqzmfPECQWSHSYA4720-87-37 03:40:00 Test Item Value Reference Range Interpretation Comments MCV (test code = MCV) 92.1 80.0-94.0 [facility] HospitalDiiiqbhSMJYVZEVZH8670-43-82 03:40:00 Test Item Value Reference Range Interpretation Comments MCH (test code = MCH) 32.1 pg 27.0-31.0 [facility] HospitalYikpofoBQDZBQVLUJ9934-11-50 03:40:00 Test Item Value Reference Range Interpretation Comments RDW (test code = RDW) 13.6 11.5-14.5 [facility] HospitalPfgueeiVMMOJDAYXQ3879-59-84 03:40:00 Test Item Value Reference Range Interpretation Comments Platelet (test code = Platelet) 247 133-450 [facility] HospitalMjjupaaXAPYXZFZWJ1001-29-51 03:40:00 Test Item Value Reference Range Interpretation Comments MCHC (test code = MCHC) 34.9 32.0-36.0 [facility] HospitalDbizzwxGGRZEPMKYZ5686-78-99 03:40:00 Test Item Value Reference Range Interpretation Comments WBC (test code = WBC) 17.6 3.7-10.4 [facility] HospitalAknlnseSXXZPUYDGK3639-44-94 03:40:00 Test Item Value Reference Range Interpretation Comments RBC (test code = RBC) 4.81 4.70-6.10 [facility] HospitalKjrbquaVZSOOAUVSK3690-60-64 03:40:00 Test Item Value Reference Range Interpretation Comments MPV (test code = MPV) 7.5 7.4-10.4 [facility] HospitalBxiohtgMLXKILOZKQ4154-87-70 03:40:00 Test Item Value Reference Range Interpretation Comments Estimated % Lysis Rapid 3.7 See_Comment [Au tomated message] The (test code = Estimated syste m which generated % Lysis Rapid) this result t ransmitted reference range : <=7.5. The reference r sara was not used to int erpret this result as normal/abnormal . [facility] HospitalPwecmivOHPUDMKSZK2439-48-12 03:40:00 Test Item Value Reference Range Interpretation Comments G-value Rapid (test code = G-value 8.4 5.0-11.6 Rapid) [facility] HospitalYpsszqvZZWPQKVFRL2294-74-57 03:40:00 Test Item Value Reference Range Interpretation Comments Angle Rapid (test code = Angle 76 degrees 64-80 Rapid) [facility] HospitalGvcngakURIDUNZQOA8071-97-03 03:40:00 Test Item Value Reference Range Interpretation Comments Max Amplitude Rapid (test code = Max 63 mm 52-71 Amplitude Rapid) [facility] HospitalVugdcvfMRFSYJEOMQ5597-44-29 03:40:00 Test Item Value Reference Range Interpretation Comments R-time Rapid (test code = R-time 0.7 min 0.4-0.7 Rapid) [place] [address]-02-13 03:40:00 Test Item Value Reference Range Interpretation Comments Split Point Rapid (test code = Split 0.6 min Point Rapid) [facility] HospitalSbctnsfATPUNGYZET3132-81-30 03:40:00 Test Item Value Reference Range Interpretation Comments K-time Rapid (test code = K-time 1.2 min 0.6-2.3 Rapid) [facility] HospitalSmmcsfsMNJVGZUQTY8256-04-40 03:40:00 Test Item Value Reference Range Interpretation Comments ACT (TEG) Rapid (test code = ACT (TEG) 113 s 86-118 Rapid) [facility] HospitalDnupfqjPFPAPUZOJS0907-09-00 03:40:00 Test Item Value Reference Range Interpretation Comments Monocytes (test code = Monocytes) 5.5 2.0-12.0 [facility] HospitalHjoqkiqELQFNSWARF9524-60-33 03:40:00 Test Item Value Reference Range Interpretation Comments Basophils (test code = 0.3 See_Comment [Aut omated message] The Basophils) system which ge nerated this result tra nsmitted reference range : <=1.0. The reference r sara was not used to int erpret this result as normal/abnormal . [facility] HospitalLpsiwuyLOCWPSDLDB9904-80-23 03:40:00 Test Item Value Reference Range Interpretation Comments Segs (test code = Segs) 86.4 45.0-75.0 [place] [address]-02-13 03:40:00 Test Item Value Reference Range Interpretation Comments Lymphocytes (test code = Lymphocytes) 7.8 20.0-40.0 [facility] HospitalOkayknoRHPQKLRCAN7828-67-52 03:40:00 Test Item Value Reference Range Interpretation Comments Monocytes # (test code 1.0 See_Comment [Aut omated message] The = Monocytes #) system which generated this result tra nsmitted reference range : <=0.8. The reference r sara was not used to int erpret this result as normal/abnormal . [facility] HospitalOspwsttNSCNIUBORG1645-96-39 03:40:00 Test Item Value Reference Range Interpretation Comments Segs-Bands # (test code = Segs-Bands #) 15.2 1.5-8.1 [facility] HospitalGehytcnRLXSLBHSMV8383-73-38 03:40:00 Test Item Value Reference Range Interpretation Comments Lymphocytes # (test code = Lymphocytes 1.4 1.0-5.5 #) [facility]
[2022-04-25 16:50] LABS: Urine Blood Trace-lysed (Negative); Urine Glucose Negative (Negative); Urine Protein Trace (Negative); Urine Specific Gravity >=1.030 (1.005-1.030); Urine pH 5.5 (5.0-7.0)
[2022-04-25 16:55] LABS: Absolute Lymphocytes (CBC) 1.9 K/uL (0.7-4.9); Hematocrit 45.4 % (39.6-49.0); Lymphocytes % 21.5 % (15.3-44.8); MPV 7.6 fL (7.6-11.3); RBC Red Blood Cell Count 4.88 M/uL (4.33-5.43)
[2022-04-25 17:01] LABS: Urine Bacteria None Seen /HPF (<20); Urine Mucus 1+ /HPF (None Seen); Urine RBC <5 /HPF (None Seen)
[2022-04-25 17:12] LABS: Potassium 3.7 mmol/L (3.5-5.1)
--- NOTE | 2022-04-25 17:20 | RAD REPORT ---
EXAM DESCRIPTION: US - Scrotum Testicles - 04/25/2022 4:59 pm CLINICAL HISTORY: Testicular pain COMPARISON: None FINDINGS: Right testicle measures 3.7 x 2 x 2.5 centimeters. Echotexture is homogeneous. Normal bloo d flow Left testicle measures 3.6 x 1.9 x 2.5 centimeters. Echotexture is homogeneous. Normal blood flow The epididymides are normal in size and echotexture. Normal blood flow is seen. IMPRESSION: Unremarkable exam
[2022-04-25] MEDS ORDERED: CEFTRIAXONE 250 MG/VIAL ONE (17:36)
[2022-04-25] MEDS ORDERED: AZITHROMYCIN 1 GM PACKET ONE (17:36)
[2022-04-25] MEDS ORDERED: LIDOCAINE 1% MPF 5 ML VIAL ONE (17:36)
[2022-04-25] MEDS ORDERED: KETOROLAC 30 MG/ML INJ ONE (17:36)
--- NOTE | 2022-04-25 17:46 | EDPHYS ---
Physician Documentation [facility] Name: Tad Gray Age: 32 yrs Sex: Male : 1990 Arrival Date: 04/25/2022 Time: 15:46 Bed 14 Private MD: Dylan Martinez HPI: 04/25 16:00 This 32 yrs old Male presents to ER via Ambulatory with complaints of Abscess, cp Testicular Pain. 16:00 The patient presents with tenderness, of the left testicle, noticed swelling and cp concerned about abscess. denies drainage from scrotum and/or penis. denies urinary symptoms. Onset: The symptoms/episode began/occurred 1 week(s) ago. 16:00 Associated signs and symptoms: Pertinent negatives: abdominal pain, constipation, cp dysuria, fever, hematuria, nausea, vomiting. Severity of symptoms: in the emergency department the symptoms are unchanged, despite home interventions. Historical: - Allergies: 15:53 No Known Drug Allergies; hb - Home Meds: 15:53 None [Active]; hb - PMHx: 15:53 Anxiety; hb - PSHx: 15:53 left leg surgery; hb - Immunization history:: Adult Immunizations up to date. - Social history:: Smoking status: Patient denies any tobacco usage or history of. ROS: 16:05 Constitutional: Negative for body aches, chills, fever, poor PO intake. cp 16:05 : Positive for testicular pain Negative for hematuria, penile discharge, penile pain. cp 16:05 Eyes: Negative for injury, pain, redness, and discharge. cp 16:05 Abdomen/GI: Negative for abdominal pain, nausea, vomiting, and diarrhea. 16:05 Skin: Negative for rash. 16:05 All other systems are negative. cp Exam: 16:10 Constitutional: The patient appears in no acute distress, alert, awake, non-toxic, well cp developed, well nourished. 16:10 Head/Face: Normocephalic, atraumatic. cp 16:10 Cardiovascular: Rate: normal. 16:10 Respiratory: the patient does not display signs of respiratory distress, Respirations: normal. 16:10 Abdomen/GI: Inspection: abdomen appears normal, Bowel sounds: active, all quadrants, Palpation: abdomen is soft and non-tender, in all quadrants. 16:10 Back: pain, is absent, ROM is normal. 16:10 : Male external genitalia: swelling: scrotal, minimal with no obvious abscess and/or mass palpated, tenderness, of the lateral side left testicle is noted, that is mild. 16:10 Skin: cellulitis, is not appreciated, no rash present. Vital Signs: 15:51 BP 127 / 104; Pulse 87; Resp 16; Temp 97.4(TE); Pulse Ox 100% on R/A; Weight 65.77 kg; hb Height 5 ft. 6 in. (167.64 cm); Pain 7/10; 16:30 BP 142 / 98; Pulse 67; Resp 18; Pulse Ox 95% on R/A; db 18:00 BP 128 / 93; Pulse 62; Resp 18; Pulse Ox 98% on R/A; db 15:51 Body Mass Index 23.40 (65.77 kg, 167.64 cm) hb MDM: 16:02 Patient medically screened. cp 17:00 Differential diagnosis: UTI, prostatitis, urethritis, STI, testicular mass, cp epididymitis, abscess, orchitis, cellulitis. 17:45 Data reviewed: vital signs, nurses notes, lab test result(s), radiologic studies, cp ultrasound. 17:45 Test considered but Not performed: CT: abdomen/pelvis. Counseling: I had a detailed cp discussion with the patient and/or guardian regarding: the historical points, exam findings, and any diagnostic results supporting the discharge/admit diagnosis, lab results, radiology results, the need for outpatient follow up, a urologist, to return to the emergency department if symptoms worsen or persist or if there are any questions or concerns that arise at home. 04/25 15:53 Order name: CBC with Diff; Complete Time: 17:14 cp 04/25 15:53 Order name: CMP; Complete Time: 17:14 cp 04/25 17:14 Interpretation: Normal except: CL 109; AST 14; GLOB 4.0; A/G 1.0. cp 04/25 15:53 Order name: Urine Microscopic Only; Complete Time: 17:14 cp 04/25 17:14 Interpretation: Reviewed. 04/25 15:53 Order name: US Scrotum Testicles; Complete Time: 17:22 cp 04/25 17:22 Interpretation: Report reviewed. 04/25 16:51 Order name: Urine Dipstick-Ancillary; Complete Time: 17:14 EDMS 04/25 17:14 Interpretation: Normal except: UBLD Trace-lysed; UPROT Trace. cp 04/25 15:53 Order name: IV Saline Lock; Complete Time: 16:52 cp 04/25 15:53 Order name: Labs collected and sent; Complete Time: 16:52 cp 04/25 15:53 Order name: Urine Dipstick-Ancillary (obtain specimen); Complete Time: 16:52 cp Administered Medications: 17:49 Drug: Rocephin (cefTRIAXone) 250 mg Route: IM; Site: right deltoid; db 18:28 Follow up: Response: No adverse reaction db 17:49 Drug: Zithromax (azithromycin) 1 grams Route: PO; db 18:28 Follow up: Response: No adverse reaction db 17:49 Drug: Ketorolac 15 mg Route: IVP; Site: right antecubital; db 18:27 Follow up: Response: No adverse reaction db Disposition Summary: 04/25/22 17:46 Discharge Ordered Location: Home cp Problem: new cp Symptoms: have improved cp Condition: Stable cp Diagnosis - Left testicular pain cp Followup: cp - With: Sarbjit Livingston MD - When: 1 week - Reason: Recheck today's complaints Discharge Instructions: - Discharge Summary Sheet cp - Testicular Self-Exam cp Forms: - Medication Reconciliation Form cp - Thank You Letter cp - Antibiotic Education cp - Prescription Opioid Use cp Prescriptions: - Diclofenac Sodium 75 mg Oral tablet,delayed release (DR/EC) - take 1 tablet by ORAL route 2 times per day; 20 tablet; Refills: 0, Product cp Selection Permitted - Doxycycline Monohydrate 100 mg Oral Tablet - take 1 tablet by ORAL route every 12 hours for 7 days; 14 tablet; Refills: 0, cp Product Selection Permitted Signatures: Dispatcher [employer] [facility] Dylan Sanches PA PA cp Jessie Lou RN RN Kaila Mcbride RN RN db
--- NOTE | 2022-04-25 17:46 | ER ---
Nurse's Notes [facility] Name: Tad Gray Age: 32 yrs Sex: Male : 1990 Arrival Date: 04/25/2022 Time: 15:46 Bed 14 Private MD: Diagnosis: Left testicular pain Presentation: 04/25 15:51 Chief complaint: Testicular pain x 1 week, painful lump on left testicle x 2 days. hb Coronavirus screen: At this time, the client does not indicate any symptoms associated with coronavirus-19. Ebola Screen: No symptoms or risks identified at this time. Initial Sepsis Screen: Does the patient meet any 2 criteria? No. Patient's initial sepsis screen is negative. Does the patient have a suspected source of infection? No. Patient's initial sepsis screen is negative. Risk Assessment: Do you want to hurt yourself or someone else? Patient reports no desire to harm self or others. Onset of symptoms was April 18, 2022. 15:51 Method Of Arrival: Ambulatory hb 15:51 Acuity: TYLER 3 hb Triage Assessment: 16:00 General: Appears in no apparent distress. comfortable, Behavior is calm, cooperative. db Historical: - Allergies: 15:53 No Known Drug Allergies; hb - Home Meds: 15:53 None [Active]; hb - PMHx: 15:53 Anxiety; hb - PSHx: 15:53 left leg surgery; hb - Immunization history:: Adult Immunizations up to date. - Social history:: Smoking status: Patient denies any tobacco usage or history of. Screenin:54 [facility] ED Fall Risk Assessment (Adult) History of falling in the last 3 months, db including since admission No falls in past 3 months (0 pts) Confusion or Disorientation No (0 pts) Intoxicated or Sedated No (0 pts) Impaired Gait No (0 pts) Mobility Assist Device Used No (0 pt) Altered Elimination No (0 pt) Score/Fall Risk Level 0 - 2 = Low Risk Oriented to surroundings, Maintained a safe environment. Abuse screen: Denies threats or abuse. Denies injuries from another. Nutritional screening: No deficits noted. Tuberculosis screening: No symptoms or risk factors identified. Assessment: 16:53 Reassessment: Patient appears in no apparent distress at this time. Patient and/or db family updated on plan of care and expected duration. Pain level reassessed. Patient is alert, oriented x 3, equal unlabored respirations, skin warm/dry/pink. testicular pain x 1 week, pain increases with walking. Reassessment:. General: Appears in no apparent distress. comfortable, Behavior is calm, cooperative. Pain: Complains of pain in testical. Neuro: No deficits noted. Level of Consciousness is awake, alert, obeys commands, Oriented to person, place, time, situation, Speech is normal, Pupils are PERRLA. Respiratory: No deficits noted. Airway is patent Respiratory effort is even, unlabored, Respiratory pattern is regular, symmetrical. GI: No deficits noted. No signs and/or symptoms were reported involving the gastrointestinal system. : No deficits noted. No signs and/or symptoms were reported regarding the genitourinary system. 17:05 Reassessment: ultrasound at bedside. db 17:26 Reassessment: Patient appears in no apparent distress at this time. Patient and/or db family updated on plan of care and expected duration. Pain level reassessed. Patient is alert, oriented x 3, equal unlabored respirations, skin warm/dry/pink. 18:20 Reassessment: Patient appears in no apparent distress at this time. Patient and/or db family updated on plan of care and expected duration. Pain level reassessed. Patient is alert, oriented x 3, equal unlabored respirations, skin warm/dry/pink. 18:26 General: Appears in no apparent distress. comfortable, Behavior is calm, cooperative. db Vital Signs: 15:51 BP 127 / 104; Pulse 87; Resp 16; Temp 97.4(TE); Pulse Ox 100% on R/A; Weight 65.77 kg; hb Height 5 ft. 6 in. (167.64 cm); Pain 7/10; 16:30 BP 142 / 98; Pulse 67; Resp 18; Pulse Ox 95% on R/A; db 18:00 BP 128 / 93; Pulse 62; Resp 18; Pulse Ox 98% on R/A; db 15:51 Body Mass Index 23.40 (65.77 kg, 167.64 cm) hb ED Course: 15:46 Patient arrived in ED. mr 15:48 Dylan Sanches PA is PHCP. cp 15:48 Dylan Philippe MD is Attending Physician. cp 15:53 Triage completed. hb 15:53 Arm band placed on. hb 16:10 Kaila Allison, RN is Primary Nurse. db 16:40 Inserted saline lock: 20 gauge in right antecubital area, using aseptic technique. db Blood collected. 17:01 US Scrotum Testicles In Process Unspecified. EDMS 17:26 Patient has correct armband on for positive identification. Bed in low position. Call db light in reach. Side rails up X 1. Pulse ox on. NIBP on. Warm blanket given. 17:45 Sarbjit Livingston MD is Referral Physician. cp 18:20 No provider procedures requiring assistance completed. IV discontinued, intact, db bleeding controlled, No redness/swelling at site. Administered Medications: 17:49 Drug: Rocephin (cefTRIAXone) 250 mg Route: IM; Site: right deltoid; db 18:28 Follow up: Response: No adverse reaction db 17:49 Drug: Zithromax (azithromycin) 1 grams Route: PO; db 18:28 Follow up: Response: No adverse reaction db 17:49 Drug: Ketorolac 15 mg Route: IVP; Site: right antecubital; db 18:27 Follow up: Response: No adverse reaction db Medication: 16:55 VIS not applicable for this client. db Outcome: 17:46 Discharge ordered by MD. cp 18:20 Discharged to home ambulatory. db 18:20 Condition: stable 18:20 Discharge instructions given to patient, Instructed on discharge instructions, follow up and referral plans. Prescriptions given X 2. 18:28 Patient left the ED. db Signatures: Dispatcher [employer] [facility] Jaja [place] Dylan Harding, PA PA Jessie Giron RN RN Kaila Allison, RN RN db Corrections: (The following items were deleted from the chart) 18:26 18:26 Reassessment: Patient appears in no apparent distress at this time. Patient db and/or family updated on plan of care and expected duration. Pain level reassessed. Patient is alert, oriented x 3, equal unlabored respirations, skin warm/dry/pink. db
[2022-04-25 20:00] VITALS: TEMP 97.4
[2022-04-25 20:02] VITALS: BP 128/93; O2SAT 98
== END 2022-04-25 18:28 | disposition home or self-care (01) ==
LOC: ER 15:43
DX: N50.812 Left testicular pain (principal)
CPT/HCPCS: 36415; 76870; 80053; 81003; 81015; 85025; 96372; 96374; 99284; J0696; J2001